=== PATIENT | female | born 1950 | race Caucasian/White ===

== ENCOUNTER → 2017-08-20 | Outpatient (CLI) | payer MEDICARE ==
[~2017-08-20] MED LIST: CALC-6 PO; CHOL10003 PO; HYDR1TAB PO; LEVO5DRO4 OU; LORA1TAB16; LTN005OP2 OU; OMG1KC PO; PRAV20TA3 PO
== END ==
LOC: RAD 09:02
PROVIDERS: ATTEND Family Medicine
DX: Z12.31 Encounter for screening mammogram for malignant neoplasm of breast (principal)
CPT/HCPCS: 77067

== ENCOUNTER → 2017-08-28 | Outpatient (CLI) | payer MEDICARE ==
[2017-08-28 10:10] LABS: BASOPHILS % (AUTO) 1 % (0-10); EOSINOPHILS # (AUTO) 0.2 10^3/uL (0.0-0.3); EOSINOPHILS % (AUTO) 4 % (0-10); LYMPHOCYTES # (AUTO) 1.5 X 10^3 (1.0-4.0); LYMPHOCYTES % (AUTO) 37 % (12-44); MEAN CORPUSCULAR HEMOGLOBIN 29 PG (25-34); MEAN CORPUSCULAR HGB CONC 34 G/DL (32-36); MEAN CORPUSCULAR VOLUME 85 FL (80-99); MEAN PLATELET VOLUME 9.9 FL (7.4-10.4); MONOCYTES # (AUTO) 0.4 X 10^3 (0.0-1.0); MONOCYTES % (AUTO) 9 % (0-12); NEUTROPHILS % (AUTO) 49 % (42-75); PLATELET COUNT 217 10^3/uL (130-400); RED BLOOD COUNT 4.46 10^6/uL (4.35-5.85); RED CELL DISTRIBUTION WIDTH 12.7 % (10.0-14.5); WHITE BLOOD COUNT 4.1 10^3/uL (4.3-11.0)
[2017-08-28 10:30] LABS: ALANINE AMINOTRANSFERASE 26 U/L (0-55); ALBUMIN 4.2 GM/DL (3.2-4.5); ANION GAP 7 MMOL/L (5-14); ASPARTATE AMINO TRANSFERASE 31 U/L (5-34); BILIRUBIN,TOTAL 1.2 MG/DL (0.1-1.0); BLOOD UREA NITROGEN 16 MG/DL (7-18); BUN/CREATININE RATIO 20; CALCIUM 9.6 MG/DL (8.5-10.1); CARBON DIOXIDE 29 MMOL/L (21-32); CHLORIDE 105 MMOL/L (98-107); CHOLESTEROL 205 MG/DL (< 200); CREATININE SERUM 0.82 MG/DL (0.60-1.30); DIRECT LDL 114 MG/DL (1-129); GFR ESTIMATED > 60; GLUCOSE 101 MG/DL (70-105); SODIUM 141 MMOL/L (135-145); TOTAL PROTEIN 7.3 GM/DL (6.4-8.2); TRIGLYCERIDES 141 MG/DL (<150); VLDL CHOLESTEROL 28 MG/DL (5-40)
[2017-08-28 10:51] LABS: THYROID STIMULATING HORMONE 0.88 UIU/ML (0.35-4.94)
[2017-08-29 16:12] LABS: VITAMIN D 25-HYDROXY (TOTAL) 31 ng/mL (30-100)
== END ==
LOC: LAB 09:47
PROVIDERS: ATTEND Family Medicine
DX: E78.5 Hyperlipidemia, unspecified (principal); E55.9 Vitamin D deficiency, unspecified; R53.83 Other fatigue; E53.8 Deficiency of other specified B group vitamins; M81.0 Age-related osteoporosis without current pathological fracture
CPT/HCPCS: 36415; 80053; 80061; 82306; 82607; 84439; 84443; 85025

== ENCOUNTER → 2017-11-20 | Outpatient (CLI) | payer MEDICARE ==
--- NOTE | 2017-11-20 14:37 | Diagnostic Imaging Report ---
INDICATION: Cough. COMPARISON: None. FINDINGS: Two views of the chest are obtained. Heart size is normal. The pulmonary vessels appear unremarkable. There is no pneumothorax, mediastinal widening, or pleural fluid demonstrated. Diaphragms are mildly flattened suggestive of COPD. The lungs are clear. Osseous structures appear unremarkable. IMPRESSION: Findings suggestive of COPD. No acute abnormality is demonstrated. Dictated by: Dictated on workstation # [id number]
== END ==
LOC: RAD 14:08
PROVIDERS: ATTEND Nurse Practitioner Family
DX: R05 Cough (principal); R06.89 Other abnormalities of breathing
CPT/HCPCS: 71046

== ENCOUNTER → 2017-11-25 | Outpatient (CLI) | payer MEDICARE ==
[~2017-11-25] MED LIST changes: +RT-ALBUTEROL SULF 2.5 MG/3 ML PRE-MIX VIAL INH ONE
== END ==
LOC: RAD 15:29
PROVIDERS: ATTEND Nurse Practitioner Family
DX: R05 Cough (principal); R07.89 Other chest pain
CPT/HCPCS: 94060; 94726; 94729

== ENCOUNTER → 2017-12-17 | Outpatient (CLI) | payer MEDICARE ==
[~2017-12-17] MED LIST changes: +CATHETER FLUSH 10 ML SYR IV PRN; +IOHEXOL 350 MG/ML 150 ML (OMNIPAQUE 350) VIAL IV ONE; -RT-ALBUTEROL SULF 2.5 MG/3 ML PRE-MIX VIAL INH ONE
[2017-12-17 11:19] LABS: BASOPHILS % (AUTO) 0 % (0-10); EOSINOPHILS # (AUTO) 0.1 10^3/uL (0.0-0.3); EOSINOPHILS % (AUTO) 1 % (0-10); HEMATOCRIT 43 % (35-52); HEMOGLOBIN 14.7 G/DL (11.5-16.0); LYMPHOCYTES # (AUTO) 1.8 X 10^3 (1.0-4.0); LYMPHOCYTES % (AUTO) 19 % (12-44); MEAN CORPUSCULAR HEMOGLOBIN 29 PG (25-34); MEAN CORPUSCULAR HGB CONC 35 G/DL (32-36); MEAN CORPUSCULAR VOLUME 85 FL (80-99); MEAN PLATELET VOLUME 9.7 FL (7.4-10.4); MONOCYTES # (AUTO) 0.7 X 10^3 (0.0-1.0); MONOCYTES % (AUTO) 7 % (0-12); NEUTROPHILS # (AUTO) 6.8 X 10^3 (1.8-7.8); NEUTROPHILS % (AUTO) 72 % (42-75); PLATELET COUNT 243 10^3/uL (130-400); RED CELL DISTRIBUTION WIDTH 13.1 % (10.0-14.5); WHITE BLOOD COUNT 9.4 10^3/uL (4.3-11.0)
[2017-12-17 11:39] LABS: ALANINE AMINOTRANSFERASE 26 U/L (0-55); ALBUMIN 4.4 GM/DL (3.2-4.5); ALKALINE PHOSPHATASE 81 U/L (40-136); BILIRUBIN,TOTAL 0.8 MG/DL (0.1-1.0); BUN/CREATININE RATIO 9; CALCIUM 9.8 MG/DL (8.5-10.1); CARBON DIOXIDE 28 MMOL/L (21-32); CHLORIDE 102 MMOL/L (98-107); CREATININE SERUM 0.77 MG/DL (0.60-1.30); GFR ESTIMATED > 60; GLUCOSE 111 MG/DL (70-105); SODIUM 139 MMOL/L (135-145)
--- NOTE | 2017-12-17 13:10 | Diagnostic Imaging Report ---
PROCEDURE: CT angiography of the chest with contrast. TECHNIQUE: Multiple contiguous axial images were obtained through the chest after uneventful bolus administration of intravenous contrast. Reconstructed CTA MIP acquisitions were also performed. INDICATION: Cough, wheezing, and shortness of breath. FINDINGS: The ascending aorta measures 3.4 cm. There is no evidence of dissection. There are no filling defects within the pulmonary arteries to suggest embolism. There is minimal dependent atelectasis in the lung bases. There are no discrete pulmonary nodules, masses, or infiltrates. There is no pleural or pericardial fluid. There is no pneumothorax. There is no pathologically enlarged adenopathy in the chest. There is mild thoracic spondylosis. The visualized intra-abdominal structures are unremarkable. IMPRESSION: Unremarkable CTA chest apart from some dependent atelectasis in the lung bases. Specifically, there is no evidence of dissection or pulmonary embolism. Mild thoracic spondylosis. Dictated by: Dictated on workstation # [id number]
== END ==
LOC: RAD 11:05
PROVIDERS: ATTEND Nurse Practitioner Family
DX: J44.9 Chronic obstructive pulmonary disease, unspecified (principal)
CPT/HCPCS: 36415; 71275; 80053; 83880; 85025

== ENCOUNTER 2017-12-24 10:45 | Inpatient (IN) | payer MEDICARE ==
[~2017-12-24] VITALS: Ht 162.6 cm; Wt 63.5 kg
[~2017-12-24 10:45] MED LIST changes: -CATHETER FLUSH 10 ML SYR IV PRN; -IOHEXOL 350 MG/ML 150 ML (OMNIPAQUE 350) VIAL IV ONE
[2017-12-24 11:15] VITALS: BP 162/87
[2017-12-24] MEDS ORDERED: methylPREDNISolone 125 MG (Solu-MEDROL) VIAL IV NR (12:04)
[2017-12-24] MEDS ORDERED: FLUCONAZOLE 200 MG/NACL 100 ML (PRE-MIX) IV NR (12:05)
[2017-12-24] MEDS ORDERED: LORATADINE (CLARITIN) 10 MG TAB PO SCH (12:07)
[2017-12-24] MEDS ORDERED: MONTELUKAST 10 MG (SINGULAIR) TAB PO SCH (12:07)
[2017-12-24] MEDS ORDERED: RT-ALBUTEROL/IPRATROPIUM 3 ML (DUONEB) VIAL IH PRN (12:15)
[2017-12-24] MEDS ORDERED: ALEN70TA47 PO (12:37)
[2017-12-24] MEDS ORDERED: LORA10TA76 PO (12:37)
[2017-12-24] MEDS ORDERED: CHOL20003 PO (12:37)
[2017-12-24] MEDS ORDERED: ALBU18HF2 INH (12:37)
[2017-12-24] MEDS ORDERED: MELA10TA2 PO (12:37)
[2017-12-24] MEDS ORDERED: BUDE10.2 INH (12:37)
[2017-12-24] MEDS ORDERED: CETI10TA17 PO (12:37)
[2017-12-24] MEDS ORDERED: LATA2.5D5 OU (12:37)
[2017-12-24] MEDS ORDERED: FLUT16SP22 NS (12:37)
[2017-12-24] MEDS ORDERED: ASPI-983 PO (12:37)
[2017-12-24] MEDS ORDERED: BENZ-36 PO (12:37)
[2017-12-24] MEDS ORDERED: PRD10T PO (12:37)
[2017-12-24] MEDS ORDERED: MONT10TA24 PO (12:37)
[2017-12-24] MEDS ORDERED: ALBU2.5V4 NEB (12:41)
[2017-12-24] MEDS ORDERED: FLUC100T6 PO (12:41)
[2017-12-24] MEDS: NS IV 1000 ML 1,000 ML IV SCH ×2 (12:44→20:09)
[2017-12-24] MEDS: ENOXAPARIN 40 MG/0.4 ML (LOVENOX) SYR SC SCH (12:45)
[2017-12-24 13:13] LABS: BASOPHILS % (AUTO) 0 % (0-10); EOSINOPHILS # (AUTO) 0.1 10^3/uL (0.0-0.3); EOSINOPHILS % (AUTO) 0 % (0-10); HEMATOCRIT 40 % (35-52); HEMOGLOBIN 13.9 G/DL (11.5-16.0); LYMPHOCYTES # (AUTO) 3.4 X 10^3 (1.0-4.0); LYMPHOCYTES % (AUTO) 18 % (12-44); MEAN CORPUSCULAR HEMOGLOBIN 30 PG (25-34); MEAN CORPUSCULAR HGB CONC 35 G/DL (32-36); MEAN CORPUSCULAR VOLUME 85 FL (80-99); MEAN PLATELET VOLUME 9.4 FL (7.4-10.4); MONOCYTES # (AUTO) 1.6 X 10^3 (0.0-1.0); MONOCYTES % (AUTO) 9 % (0-12); NEUTROPHILS # (AUTO) 13.4 X 10^3 (1.8-7.8); NEUTROPHILS % (AUTO) 72 % (42-75); PLATELET COUNT 281 10^3/uL (130-400); RED BLOOD COUNT 4.65 10^6/uL (4.35-5.85); RED CELL DISTRIBUTION WIDTH 13.7 % (10.0-14.5); WHITE BLOOD COUNT 18.6 10^3/uL (4.3-11.0)
[2017-12-24 13:30] LABS: ALANINE AMINOTRANSFERASE 22 U/L (0-55); ALBUMIN 3.5 GM/DL (3.2-4.5); ALKALINE PHOSPHATASE 64 U/L (40-136); BILIRUBIN,TOTAL 0.6 MG/DL (0.1-1.0); BUN/CREATININE RATIO 16; CALCIUM 9.3 MG/DL (8.5-10.1); CARBON DIOXIDE 25 MMOL/L (21-32); CHLORIDE 100 MMOL/L (98-107); CREATININE SERUM 0.76 MG/DL (0.60-1.30); GFR ESTIMATED > 60; GLUCOSE 120 MG/DL (70-105); POTASSIUM 3.2 MMOL/L (3.6-5.0); SODIUM 136 MMOL/L (135-145); TOTAL PROTEIN 6.3 GM/DL (6.4-8.2)
[2017-12-24 13:39] LABS: BAND NEUTROPHILS 4 %; BASOPHILS % (MANUAL) 0 %; EOSINOPHILS % (MANUAL) 0 %; LYMPHOCYTES % (MANUAL) 18 %; MONOCYTES % (MANUAL) 5 %; NEUTROPHILS % (MANUAL) 73 %; RBC MORPH NORMAL
--- NOTE | 2017-12-24 13:49 | Diagnostic Imaging Report ---
EXAMINATION: PA and lateral chest obtained at 153h. INDICATION: Cough, shortness of breath The heart size is within normal limits and stable when compared to 11/20/2017. In the interval since the prior study a few crowded bronchovascular markings have developed in the left lung base. I am concerned that there is mild pneumonia/atelectasis in this area. The lungs are otherwise clear. There is no sign of pleural effusion. Mediastinum is not widened. The osseous structures are intact. IMPRESSION: 1. The findings do suggest that there is now mild left lower lobe pneumonia/atelectasis. Clinical followup is recommended. 2. There is no acute cardiopulmonary abnormality noted otherwise. Dictated by: Dictated on workstation # [id number]
[2017-12-24] MEDS: RT-ALBUTEROL/IPRATROPIUM 3 ML (DUONEB) VIAL IH SCH ×2 (15:02→23:20)
[2017-12-24 16:00] VITALS: BP 157/98
--- NOTE | 2017-12-24 17:23 | History & Physicial ---
History of Present Illness History of Present Illness Reason for visit/HPI This is a 67 year old female with a 3month history of shortness of air with cough. She has had an extensive workup including CXR, CT scan of chest, PFT, laboratory and has been treated with antibiotics, steroids and inhalers with no improvement in her symptoms. She was sent to Dr. Beltran and he felt she should be admitted for IV steroids and routine breathing treatments for COPD exacerbation. She was also noted to have significant thrush at his office. Date of Admission Dec 24, 2017 at 11:50 am Date Seen by Provider: Dec 24, 2017 Time Seen by Provider: 12:30 I consulted on this patient on 12/24/17 17:18 Attending Physician Kayy English DO Admitting Physician Kayy English DO Consult Allergies and Home Medications Allergies Coded Allergies: No Known Drug Allergies (Verified , 08/08/16) Home Medications Albuterol Sulfate 18 Gm Hfa.aer.ad, 2 PUFF INH Q4H PRN for SHORTNESS OF BREATH, (Reported) Albuterol Sulfate 2.5 Mg/3 Ml Vial.neb, 2.5 MG NEB Q6H PRN for WHEEZING, ( Reported) Alendronate Sodium 70 Mg Tablet, 70 MG PO Th, (Reported) Aspirin 81 Mg Tablet.dr, 81 MG PO DAILY, (Reported) Benzonatate 100 Mg Capsule, 100 MG PO Q8H PRN for COUGH, (Reported) Budesonide/Formoterol Fumarate 10.2 Gm Hfa.aer.ad, 2 PUFF INH BID, (Reported) Calcium Carbonate/Vitamin D3 1 Each Tablet, 1 TAB PO HS, (Reported) Cetirizine HCl 10 Mg Tablet, 10 MG PO DAILY, (Reported) Cholecalciferol (Vitamin D3) 2,000 Unit Capsule, 2,000 UNIT PO BID, (Reported) Fluconazole 100 Mg Tablet, 100 MG PO DAILY for 7 Days, (Reported) 7 DAY SUPPLY FILLED 18 Fluticasone Propionate 16 Gm [place].susp, 1 SPRAY NS 1200, (Reported) Latanoprost 2.5 Ml Drops, 1 DROP OU HS, (Reported) Levobunolol HCl 5 Ml Drops, 1 DROP OU DAILY, (Reported) Loratadine 10 Mg Tablet, 10 MG PO DAILY PRN for ALLERGIES, (Reported) Melatonin 10 Mg Tablet, 10 MG PO HS, (Reported) Montelukast Sodium 10 Mg Tablet, 10 MG PO HS, (Reported) [place] 3 Polyunsat Fatty Acids 1,000 Mg Cap, 1,000 MG PO DAILY, (Reported) Pravastatin Sodium 20 Mg Tablet, 20 MG PO HS, (Reported) Prednisone 10 Mg Tab, PO UD for 12 Days, (Reported) TAKE 6 TABLETS BY MOUTH ON DAY 1&2, 5 TABLET 3&4, 4 TABLET 5&6, 3 TABLET 7&8 , 2 TABLET 9&10, 1 TABLET 11&12 12 DAY THERAPY FILLED 12-17-17 Past Bvboxye-Ubhvke-Qyqtpt Hx Patient Social History Alcohol Use: Denies Use Recreational Drug Use: No Smoking Status: Never a Smoker Physical Abuse Screen: No Sexual Abuse: No Recent Foreign Travel: No Contact w/other who traveled: No Recent Infectious Disease Expo: No Immunizations Up To Date Date of Pneumonia Vaccine: Aug 23, 2017 Date of Influenza Vaccine: Aug 23, 2017 Seasonal Allergies Seasonal Allergies: Yes Surgeries Yes (gb surgery ) Respiratory No Cardiovascular Yes Neurological No Genitourinary No Gastrointestinal Yes Gastroesophageal Reflux Musculoskeletal Yes Fibromyalgia Endocrine History of Endocrine Disorders: No HEENT History of HEENT Disorders: No Cancer No Psychosocial History of Psychiatric Problem: No Integumentary History of Skin or Integumenta: No Blood Transfusions History of Blood Disorders: No Constitutional: weakness EENTM: mouth pain, nose congestion Respiratory: cough, dyspnea on exertion, short of breath Cardiovascular: No no symptoms reported, No see HPI, No chest pain, No edema, No Hx of Intervention, No palpitations, No syncope, No vascular heart diseas, No other Gastrointestinal: No RUQ, No LUQ, No RLQ, No LLQ, No no symptoms reported, No see HPI, No abdominal pain, No constipation, No diarrhea, No dysphagia, No hematemesis, No heartburn, No jaundice, No loss of appetite, No melena, No nausea, No vomiting, No other Genitourinary: No no symptoms reported, No see HPI, No decreased output, No discharge, No dysuria, No frequency, No hematuria, No hesitancy, No incontinence , No nocturia, No pain, No other Musculoskeletal: No no symptoms reported, No see HPI, No back pain, No gout, No joint pain, No joint swelling, No muscle pain, No muscle stiffness, No muscle cramps, No muscle twitching, No muscle weakness, No neck pain, No other Skin: No no symptoms reported, No see HPI, No change in color, No change in hair/nails, No dryness, No hx of skin cancer, No lesions, No lumps, No pruritus , No rash, No other Psychiatric/Neurological: Weakness Physical Exam Vital Signs Vital Signs - First Documented 12/24/17 11:15 Temp 97.0 Pulse 79 Resp 16 B/P (MAP) 162/87 (112) Pulse Ox 94 O2 Delivery Room Air Capillary Refill : General Appearance: No Apparent Distress, Mild Distress (due to fatigue/cough) HEENT: Other (thrush) Neck: Supple Respiratory: Lungs Clear, Decreased Breath Sounds Cardiovascular: Regular Rate, Rhythm Gastrointestinal: Normal Bowel Sounds, Non Tender, Soft Rectal: Deferred Back: No CVA Tenderness Extremity: Non Tender, No Calf Tenderness, No Pedal Edema Neurologic/Psychiatric: Alert, Oriented x3 Skin: Normal Color, Warm/Dry Comments Laboratory Tests 12/24/17 13:05: White Blood Count 18.6H, Red Blood Count 4.65, Hemoglobin 13.9, Hematocrit 40, Mean Corpuscular Volume 85, Mean Corpuscular Hemoglobin 30, Mean Corpuscular Hemoglobin Concent 35, Red Cell Distribution Width 13.7, Platelet Count 281, Mean Platelet Volume 9.4, Neutrophils (%) (Auto) 72, Lymphocytes (%) (Auto) 18, Monocytes (%) (Auto) 9, Eosinophils (%) (Auto) 0, Basophils (%) (Auto) 0, Neutrophils # (Auto) 13.4H, Lymphocytes # (Auto) 3.4, Monocytes # (Auto) 1.6H, Eosinophils # (Auto) 0.1, Basophils # (Auto) 0.0, Neutrophils % (Manual) 73, Lymphocytes % (Manual) 18, Monocytes % (Manual) 5, Eosinophils % (Manual) 0, Basophils % (Manual) 0, Band Neutrophils 4, Blood Morphology Comment NORMAL, Sodium Level 136, Potassium Level 3.2L, Chloride Level 100, Carbon Dioxide Level 25, Anion Gap 11, Blood Urea Nitrogen 12, Creatinine 0.76, Estimat Glomerular Filtration Rate > 60, BUN/Creatinine Ratio 16, Glucose Level 120H, Calcium Level 9.3, Total Bilirubin 0.6, Aspartate Amino Transf (AST/SGOT) 18, Alanine Aminotransferase (ALT/SGPT) 22, Alkaline Phosphatase 64, Total Protein 6.3L, Albumin 3.5 Assessment/Plan Assessment and Plan 1. COPD with acute exacerbation--admit for IV steroids and nebulizer treatments , pulmonology consulted 2. Thrush--cover with IV diflucan and oral nystatin 3. Allergic Rhinitis--resume zyrtec, singulair Problems: Clinical Quality Measures DVT/VTE Risk/Contraindication: Risk Factor Score Per Nursin RFS Level Per Nursing on Admit: 4+=Very High KAYY ENGLISH DO Dec 24, 2017 5:23 pm
[2017-12-24] MEDS: methylPREDNISolone 40 MG/ML (Solu-MEDROL) VIAL IV SCH ×2 (18:03→23:21)
[2017-12-24] MEDS: NYSTATIN ORAL SUSP 5 ML UDC PO SCH ×2 (18:03→23:21)
[2017-12-24 19:43] VITALS: BP 158/87
[2017-12-24] MEDS: FAMOTIDINE 20 MG (PEPCID) TABLET PO SCH (20:10)
[2017-12-24] MEDS: LATANOPROST 0.005% (XALATAN) OPHTH SOLN 2.5 ML OU SCH (20:10)
[2017-12-24] MEDS: SIMvastatin 10 MG (ZOCOR) TAB PO SCH (20:10)
[2017-12-24] MEDS: MONTELUKAST 10 MG (SINGULAIR) TAB PO SCH (20:10)
[2017-12-24] MEDS: MELATONIN 3 MG TABLET PO SCH (23:15)
[2017-12-25] VITALS: BP 139/90
[2017-12-25] MEDS: RT-ALBUTEROL/IPRATROPIUM 3 ML (DUONEB) VIAL IH SCH ×6 (02:18→23:17)
[2017-12-25] MEDS: NS IV 1000 ML 1,000 ML IV SCH ×4 (02:52→21:44)
[2017-12-25 03:31] VITALS: BP 162/94
[2017-12-25] MEDS: methylPREDNISolone 40 MG/ML (Solu-MEDROL) VIAL IV SCH ×4 (05:41→23:29)
[2017-12-25] MEDS: NYSTATIN ORAL SUSP 5 ML UDC PO SCH ×4 (05:41→23:29)
[2017-12-25 08:00] VITALS: BP 184/97
[2017-12-25] MEDS: ASPIRIN E.C. 81 MG (ECOTRIN) TAB PO SCH (08:27)
[2017-12-25] MEDS: LORATADINE (CLARITIN) 10 MG TAB PO SCH (08:27)
[2017-12-25] MEDS: FAMOTIDINE 20 MG (PEPCID) TABLET PO SCH (08:27)
--- OUTSIDE RECORDS SUMMARY | 2017-12-25 08:57 | XMS REPORT | Clinical Summary ---
Author Author User, [employer] Organization [facility] [place] Address Unknown Phone Unavailable Allergies, Adverse Reactions, Alerts Allergy Name Reaction Description Start Date Severity Status Provider No Known Allergies Kiersten Main Conditions or Problems Problem Name Problem Code Onset Date Status Entry Date Provider Comment Standard Description Annotate SCREENING FOR OSTEOPOROSIS V82.81 Resolved Eileen Parra Screening for osteoporosis HEALTH SCREENING V70.0 Resolved Eileen Parra Routine general medical examination at a health care facility MENOPAUSAL SYNDROME 627.0 Active Eileen Parra Premenopausal menorrhagia FATIGUE 780.79 Active Eileen Parra Other malaise and fatigue HYPERTRIGLYCERIDEMIA 272.1 Active Eileen Parra Pure hyperglyceridemia OSTEOPENIA 733.90 Resolved Eileen Parra Disorder of bone and cartilage, unspecified OSTEOPOROSIS NEC 733.09 Active Eileen Parra Other osteoporosis HEALTH SCREENING V70.0 Resolved Eileen Parra Routine general medical examination at a health care facility ABNORMAL MAMMOGRAM 793.80 Resolved Eileen Parra Abnormal mammogram, unspecified Medication List Medication Instructions Start Date Stop Date Generic Name NDC Status Provider Patient Instruction CVS MELATONIN 5 MG TABS 1 PO QHS MELATONIN 17952736239 Active Eileen Parra LEVOBUNOLOL HCL 0.5 % SOLN 1 drop each eye daily LEVOBUNOLOL HCL 01556077602 Active Eileen Parra VITAMIN D 1000 UNIT TABS 2 PO Daily CHOLECALCIFEROL 39859322186 Active Eileen Catherine Fidel FOSAMAX 70 MG TABS 1 PO Qwk ALENDRONATE SODIUM 07677345796 Active Shannan Fontana FISH OIL 1000 MG CAPS 1 PO daily OMEGA-3 FATTY ACIDS 01400844317 Active Eileenanuja Parra CALTRATE 600 PLUS-VIT D 600-200 MG-IU TABS 1 PO BID CALCIUM- VITAMIN D Active Eileenanuja Parra PREMARIN 0.3 MG TABS 1 PO daily ESTROGENS CONJUGATED 18931091928 No Longer Active Eileenanuja Parra CLIMARA 0.05 MG/24HR PTWK apply 1 patch one time a week (ON HOLD) ESTRADIOL 07623374702 No Longer Active Eileenanuja Parra XALATAN 0.005 % SOLN 1 gtt in OU at HS LATANOPROST 89069622457 Active Eileenanuja Parra Vital Signs Date Name Value Unit Range Description blood pressure, diastolic - 8462-4 80 mm[Hg] BP paula blood pressure, systolic - 8480-6 130 mm[Hg] BP sys pulse rate E&M - 8867-4 68 /min Heart rate respiratory rate E&M - 9279-1 14 /min Resp rate temperature E&M 97.6 [degF] Body temperature weight E&M - 3141-9 155 [lb_av] Weight Measured Diagnostic Results Date Name Value Unit Range Description Clinical Lists Update: CBC,CMP,FLP,TSH - Chemistry Estimated Glomerular Filtration Rate (calc) >60 mL/min/1.73m2 glucose, plasma fasting 104 mg/dL albumin, serum 4.1 g/dL alkaline phosphatase, serum 60 U/L urea nitrogen, blood 14 mg/dL calcium, serum 9.5 mg/dL chloride, serum 107 mmol/L cholesterol, serum 238 mg/dL very low density lipoproteins 69 mg/dL sodium, serum 142 mmol/L triglyceride, serum, fasting 346 mg/dL bilirubin, serum, total 0.6 mg/dL alanine aminotransferase (SGPT), serum 26 U/L aspartate aminotransferase (SGOT), serum 26 U/L protein, total, serum 7.2 g/dL potassium, serum 3.9 mmol/L LDL cholesterol, serum 103 mg/dL thyroid stimulating hormone, serum 1.58 u[iU]/mL HDL cholesterol, serum 40 mg/dL creatinine, serum 0.82 mg/dL carbon dioxide, venous blood 28 mmol/L Clinical Lists Update: CBC,CMP,FLP,TSH - Hematology platelet count 238 10*3/mm3 erythrocyte (RBC) count 4.62 10*6/mm3 leukocyte count, blood 5.6 10*3/mm3 mean corpuscular volume, RBC 85 fL red blood cell distribution width 12.7 % hemoglobin, blood 13.4 g/dL hematocrit, blood 39 % Encounters Code Encounter Date Provider Facility CPT-10645 Ofc Vst, Est Level IV 11:16:39 CDT Eileen Parra DO, FACP CPT-23366 Ofc Vst, New Level IV 10:22:05 CDT Eileen Parra DO, FACP CPT-54592 Ofc Vst, Est Level III 16:02:27 CDT Eileen Parra [facility] [place] CPT-59023 Ofc Vst, New Level III 16:50:39 CORONER/MEDICAL EXAMINER Eileen [facility] [place] Procedures Code Procedure Name Date Entry Date Standard Description CPT-95459 Preventive, Est, (40-64) 18:15:22 CDT CPT-01656 Preventive, Est, (40-64) 15:20:17 CDT CPT-77207 Preventive, Est, (40-64) 12:57:11 CDT CPT-14288 Preventive, Est, (40-64) 14:58:51 CDT
--- OUTSIDE RECORDS SUMMARY | 2017-12-25 08:57 | XMS REPORT | Continuity of Care Document ---
Author Author [facility] Organization [facility] Address Unknown Phone Unavailable Allergies Active Description Code Type Severity Reaction Onset Reported/Identified Relationship to Patient Clinical Status Yes No Known Drug Allergies [id number] Drug Allergy Mild N/A 08/08/2016 Medications There is no data. Problems Date Dx Coded Attending Type Code Diagnosis Diagnosed By 11/02/2014 MITCHELL DO, ARACELIS Ot 793.80 06/01/2015 Ot 793.89 06/01/2015 Ot V76.12 06/01/2015 Ot 272.1 06/01/2015 Ot 272.1 06/01/2015 Ot 627.0 06/01/2015 Ot 733.00 06/01/2015 Ot 780.79 06/01/2015 Ot V82.81 06/01/2015 Ot 268.9 06/01/2015 Ot 272.1 06/01/2015 Ot 733.00 06/01/2015 Ot 733.90 06/01/2015 Ot 780.79 06/01/2015 Ot V82.81 06/01/2015 Ot V76.12 06/01/2015 MITCHELL DO, ARACELIS Ot 272.1 06/01/2015 MITCHELL DO, ARACELIS Ot 627.0 06/01/2015 MITCHELL DO, ARACELIS Ot 733.09 06/01/2015 MITCHELL DO, ARACELIS Ot 733.90 06/01/2015 MITCHELL DO, ARACELIS Ot 780.79 06/01/2015 MITCHELL DO, ARACELIS Ot V70.0 06/01/2015 MITCHELL DO, ARACELIS Ot V82.81 06/01/2015 MITCHELL DO, ARACELIS Ot V76.12 06/01/2015 MITCHELL DO, ARACELIS Ot 272.1 06/01/2015 MITCHELL DO, ARACELIS Ot 627.0 06/01/2015 MITCHELL DO, ARACELIS Ot 733.09 06/01/2015 MITCHELL DO, ARACELIS Ot 780.79 06/01/2015 MITCHELL DO, ARACELIS Ot V58.69 06/01/2015 MITCHELL DO, ARACELIS Ot V58.83 06/01/2015 MITCHELL DO, ARACELIS Ot V70.0 06/01/2015 MITCHELL DO, ARACELIS Ot V76.12 06/01/2015 MITCHELL DO, ARACELIS Ot 793.80 06/15/2015 MITCHELL DO, ARACELIS Ot V76.12 06/16/2015 MITCHELL DO, ARACELIS Ot 272.1 06/16/2015 MITCHELL DO, ARACELIS Ot 627.0 06/16/2015 MITCHELL DO, ARACELIS Ot 733.09 06/16/2015 MITCHELL DO, ARACELIS Ot 780.79 06/16/2015 MITCHELL DO, ARACELIS Ot V58.69 06/16/2015 MITCHELL DO, ARACELIS Ot V70.0 07/01/2015 MITCHELL DO, ARACELIS Ot V76.12 2016 FABIAN MAE DO S Ot 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 2016 CATHY MAE DOQUELINE S Ot M85.80 OTH DISRD OF BONE DENSITY AND STRUCTURE, 2016 BEA MAE DOLINE S Ot R53.83 OTHER FATIGUE 2016 BEA MAE DOLINE S Ot Z12.31 ENCNTR SCREEN MAMMOGRAM FOR MALIGNANT NE 07/27/2016 BEA MAE DOLINE S Ot M85.80 OTH DISRD OF BONE DENSITY AND STRUCTURE, 07/27/2016 BEA MAE DOLINE S Ot 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 07/30/2016 KATHRYN ANGUIANO MD Ot Z01.818 ENCOUNTER FOR OTHER PREPROCEDURAL EXAMIN 07/30/2016 KATHRYN ANGUIANO MD Ot Z12.11 ENCOUNTER FOR SCREENING FOR MALIGNANT NE 07/31/2016 KATHRYN ANGUIANO MD Ot Z01.818 ENCOUNTER FOR OTHER PREPROCEDURAL EXAMIN 07/31/2016 KATHRYN ANGUIANO MD Ot Z12.11 ENCOUNTER FOR SCREENING FOR MALIGNANT NE 08/07/2016 BEA MAE DOLINE S Ot M85.80 OTH DISRD OF BONE DENSITY AND STRUCTURE, 08/07/2016 ORENDER DO, FABIAN S Ot Z79.899 OTHER CORRECTION (CURRENT) DRUG THERAPY 08/08/2016 ORENDER DO, FABIAN S Ot 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 08/08/2016 ORENDER DO, FABIAN S Ot M85.80 OTH DISRD OF BONE DENSITY AND STRUCTURE, 08/08/2016 ORENDER DO, FABIAN S Ot R53.83 OTHER FATIGUE 08/08/2016 ORENDER DO, FABIAN S Ot Z12.31 ENCNTR SCREEN MAMMOGRAM FOR MALIGNANT NE 08/08/2016 ORENDER DO, FABIAN S Ot M85.80 OTH DISRD OF BONE DENSITY AND STRUCTURE, 08/08/2016 ORENDER DO, FABIAN S Ot Z79.899 OTHER CORRECTION (CURRENT) DRUG THERAPY 08/08/2016 KATHRYN ANGUIANO MD Ot K64.0 FIRST DEGREE HEMORRHOIDS 08/08/2016 KATHRYN ANGUIANO MD Ot Z12.11 ENCOUNTER FOR SCREENING FOR MALIGNANT NE 08/24/2016 ORENDER DO, FABIAN S Ot 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 08/24/2016 ORENDER DO, FABIAN S Ot M85.80 OTH DISRD OF BONE DENSITY AND STRUCTURE, 08/24/2016 ORENDER DO, FABIAN S Ot R53.83 OTHER FATIGUE 08/24/2016 ORENDER DO, FABIAN S Ot Z12.31 ENCNTR SCREEN MAMMOGRAM FOR MALIGNANT NE 08/27/2016 KATHRYN ANGUIANO MD Ot K64.0 FIRST DEGREE HEMORRHOIDS 08/27/2016 KATHRYN ANGUIANO MD Ot Z12.11 ENCOUNTER FOR SCREENING FOR MALIGNANT NE 08/16/2017 ORENDER DO, FABIAN S Ot Z12.31 ENCNTR SCREEN MAMMOGRAM FOR MALIGNANT NE 08/20/2017 ORENDER DO, FABIAN S Ot 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 08/20/2017 ORENDER DO, FABIAN S Ot M85.80 OTH DISRD OF BONE DENSITY AND STRUCTURE, 08/20/2017 ORENDER DO, FABIAN S Ot R53.83 OTHER FATIGUE 08/20/2017 ORENDER DO, FABIAN S Ot Z12.31 ENCNTR SCREEN MAMMOGRAM FOR MALIGNANT NE 08/20/2017 ARMANDNDMARA OLVERA, FABIAN Kathie Ot M85.80 OTH DISRD OF BONE DENSITY AND STRUCTURE, 08/20/2017 ARMANDNDFABIAN TERRY DO S Ot 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 08/20/2017 BEA MAE DOLINE S Ot Z12.31 ENCNTR SCREEN MAMMOGRAM FOR MALIGNANT NE 08/21/2017 ARMANDNDER , FABIAN S Ot Z12.31 ENCNTR SCREEN MAMMOGRAM FOR MALIGNANT NE 08/26/2017 ARMANDNDER , FABIAN S Ot Z12.31 ENCNTR SCREEN MAMMOGRAM FOR MALIGNANT NE 09/12/2017 ARMANDNDER , FABIAN S Ot Z12.31 ENCNTR SCREEN MAMMOGRAM FOR MALIGNANT NE 09/13/2017 ARMANDNDMARA OLVERA, FABIAN S Ot 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 09/13/2017 ARMANDNDER , FABIAN S Ot E55.9 VITAMIN D DEFICIENCY, UNSPECIFIED 09/13/2017 ARMANDNDER , FABIAN S Ot E78.5 HYPERLIPIDEMIA, UNSPECIFIED 09/13/2017 ARMANDNDER , FABIAN S Ot M81.0 AGE-RELATED OSTEOPOROSIS W/O CURRENT PAT 09/13/2017 ARMANDNDER , FABIAN S Ot R53.83 OTHER FATIGUE 09/26/2017 ARMANDNDER , FABIAN S Ot 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 09/26/2017 ARMANDNDER , FABIAN S Ot E55.9 VITAMIN D DEFICIENCY, UNSPECIFIED 09/26/2017 ARMANDNDER , FABIAN S Ot E78.5 HYPERLIPIDEMIA, UNSPECIFIED 09/26/2017 ARMANDNDER , FABIAN S Ot M81.0 AGE-RELATED OSTEOPOROSIS W/O CURRENT PAT 09/26/2017 ARMANDNDER , FABIAN S Ot R53.83 OTHER FATIGUE 10/04/2017 ARMANDNDER , FABIAN S Ot 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 10/04/2017 ARMANDNDER , FABIAN S Ot E55.9 VITAMIN D DEFICIENCY, UNSPECIFIED 10/04/2017 ARMANDNDER , FABIAN S Ot E78.5 HYPERLIPIDEMIA, UNSPECIFIED 10/04/2017 FABIAN MAE DO Ot M81.0 AGE-RELATED OSTEOPOROSIS W/O CURRENT PAT 10/04/2017 FABIAN MAE DO Ot R53.83 OTHER FATIGUE 10/09/2017 FABIAN MAE DO Ot Z12.31 ENCNTR SCREEN MAMMOGRAM FOR MALIGNANT NE 10/16/2017 FABIAN MAE DO Ot Z12.31 ENCNTR SCREEN MAMMOGRAM FOR MALIGNANT NE 12/16/2017 FARHATSUNSHINE R LATH HAND Ot R05 COUGH 12/16/2017 FARHAT, SUNSHINE R LATH HAND Ot R07.89 OTHER CHEST PAIN 12/16/2017 FARHAT, SUNSHINE R LATH HAND Ot R05 COUGH 12/16/2017 FARHAT, SUNSHINE R LATH HAND Ot R06.89 OTHER ABNORMALITIES OF BREATHING 12/17/2017 LARS WISDOM LATH HAND Ot J44.9 CHRONIC OBSTRUCTIVE PULMONARY DISEASE, U Procedures There is no data. Results Test Result Range Complete blood count (CBC) with automated white blood cell (WBC) differential - 08/28/17 10:05 Blood leukocytes automated count (number/volume) 4.1 10*3/uL 4.3-11.0 Blood erythrocytes automated count (number/volume) 4.46 10*6/uL 4.35-5.85 Venous blood hemoglobin measurement (mass/volume) 13.0 g/dL 11.5-16.0 Blood hematocrit (volume fraction) 38 % 35-52 Automated erythrocyte mean corpuscular volume 85 [foz_us] 80-99 Automated erythrocyte mean corpuscular hemoglobin (mass per erythrocyte) 29 pg 25-34 Automated erythrocyte mean corpuscular hemoglobin concentration measurement ( mass/volume) 34 g/dL 32-36 Automated erythrocyte distribution width ratio 12.7 % 10.0-14.5 Automated blood platelet count (count/volume) 217 10*3/uL 130-400 Automated blood platelet mean volume measurement 9.9 [foz_us] 7.4-10.4 Automated blood neutrophils/100 leukocytes 49 % 42-75 Automated blood lymphocytes/100 leukocytes 37 % 12-44 Blood monocytes/100 leukocytes 9 % 0-12 Automated blood eosinophils/100 leukocytes 4 % 0-10 Automated blood basophils/100 leukocytes 1 % 0-10 Blood neutrophils automated count (number/volume) 2.0 10*3 1.8-7.8 Blood lymphocytes automated count (number/volume) 1.5 10*3 1.0-4.0 Blood monocytes automated count (number/volume) 0.4 10*3 0.0-1.0 Automated eosinophil count 0.2 10*3/uL 0.0-0.3 Automated blood basophil count (count/volume) 0.0 10*3/uL 0.0-0.1 Comprehensive metabolic panel - 08/28/17 10:05 Serum or plasma sodium measurement (moles/volume) 141 mmol/L 135-145 Serum or plasma potassium measurement (moles/volume) 4.0 mmol/L 3.6-5.0 Serum or plasma chloride measurement (moles/volume) 105 mmol/L 98-107 Carbon dioxide 29 mmol/L 21-32 Serum or plasma anion gap determination (moles/volume) 7 mmol/L 5-14 Serum or plasma urea nitrogen measurement (mass/volume) 16 mg/dL 7-18 Serum or plasma creatinine measurement (mass/volume) 0.82 mg/dL 0.60-1.30 Serum or plasma urea nitrogen/creatinine mass ratio 20 NRG Serum or plasma creatinine measurement with calculation of estimated glomerular filtration rate > NRG Serum or plasma glucose measurement (mass/volume) 101 mg/dL 70-105 Serum or plasma calcium measurement (mass/volume) 9.6 mg/dL 8.5-10.1 Serum or plasma total bilirubin measurement (mass/volume) 1.2 mg/dL 0.1-1.0 Serum or plasma alkaline phosphatase measurement (enzymatic activity/volume) 69 U/L 40-136 Serum or plasma aspartate aminotransferase measurement (enzymatic activity/ volume) 31 U/L 5-34 Serum or plasma alanine aminotransferase measurement (enzymatic activity/volume ) 26 U/L 0-55 Serum or plasma protein measurement (mass/volume) 7.3 g/dL 6.4-8.2 Serum or plasma albumin measurement (mass/volume) 4.2 g/dL 3.2-4.5 Lipid 1996 panel - 08/28/17 10:05 Serum or plasma triglyceride measurement (mass/volume) 141 mg/dL <150 Serum or plasma cholesterol measurement (mass/volume) 205 mg/dL < 200 Serum or plasma cholesterol in HDL measurement (mass/volume) 47 mg/ dL 40-60 Cholesterol in LDL [mass/volume] in serum or plasma by direct assay 114 mg/dL 1-129 Serum or plasma cholesterol in VLDL measurement (mass/volume) 28 mg/ dL 5-40 THYROID STIMULATING HORMONE - 08/28/17 10:05 THYROID STIMULATING HORMONE 0.88 u[iU]/mL 0.35-4.94 Serum or plasma thyroxine (T4) free measurement (mass/volume) - 08/28/17 10:05 Serum or plasma thyroxine (T4) free measurement (mass/volume) 0.97 ng/dL 0.70-1.48 Cyanocobalamin measurement - 08/28/17 10:05 Vitamin B12 1683 pg/mL 200-1000 25-hydroxyvitamin D measurement - 08/28/17 10:05 25-hydroxy vitamin D measurement 31 % 30-100 Complete blood count (CBC) with automated white blood cell (WBC) differential - 12/17/17 11:16 Blood leukocytes automated count (number/volume) 9.4 10*3/uL 4.3-11.0 Blood erythrocytes automated count (number/volume) 5.00 10*6/uL 4.35-5.85 Venous blood hemoglobin measurement (mass/volume) 14.7 g/dL 11.5-16.0 Blood hematocrit (volume fraction) 43 % 35-52 Automated erythrocyte mean corpuscular volume 85 [foz_us] 80-99 Automated erythrocyte mean corpuscular hemoglobin (mass per erythrocyte) 29 pg 25-34 Automated erythrocyte mean corpuscular hemoglobin concentration measurement ( mass/volume) 35 g/dL 32-36 Automated erythrocyte distribution width ratio 13.1 % 10.0-14.5 Automated blood platelet count (count/volume) 243 10*3/uL 130-400 Automated blood platelet mean volume measurement 9.7 [foz_us] 7.4-10.4 Automated blood neutrophils/100 leukocytes 72 % 42-75 Automated blood lymphocytes/100 leukocytes 19 % 12-44 Blood monocytes/100 leukocytes 7 % 0-12 Automated blood eosinophils/100 leukocytes 1 % 0-10 Automated blood basophils/100 leukocytes 0 % 0-10 Blood neutrophils automated count (number/volume) 6.8 10*3 1.8-7.8 Blood lymphocytes automated count (number/volume) 1.8 10*3 1.0-4.0 Blood monocytes automated count (number/volume) 0.7 10*3 0.0-1.0 Automated eosinophil count 0.1 10*3/uL 0.0-0.3 Automated blood basophil count (count/volume) 0.0 10*3/uL 0.0-0.1 Comprehensive metabolic panel - 12/17/17 11:16 Serum or plasma sodium measurement (moles/volume) 139 mmol/L 135-145 Serum or plasma potassium measurement (moles/volume) 4.0 mmol/L 3.6-5.0 Serum or plasma chloride measurement (moles/volume) 102 mmol/L 98-107 Carbon dioxide 28 mmol/L 21-32 Serum or plasma anion gap determination (moles/volume) 9 mmol/L 5-14 Serum or plasma urea nitrogen measurement (mass/volume) 7 mg/dL 7-18 Serum or plasma creatinine measurement (mass/volume) 0.77 mg/dL 0.60-1.30 Serum or plasma urea nitrogen/creatinine mass ratio 9 NRG Serum or plasma creatinine measurement with calculation of estimated glomerular filtration rate > NRG Serum or plasma glucose measurement (mass/volume) 111 mg/dL 70-105 Serum or plasma calcium measurement (mass/volume) 9.8 mg/dL 8.5-10.1 Serum or plasma total bilirubin measurement (mass/volume) 0.8 mg/dL 0.1-1.0 Serum or plasma alkaline phosphatase measurement (enzymatic activity/volume) 81 U/L 40-136 Serum or plasma aspartate aminotransferase measurement (enzymatic activity/ volume) 26 U/L 5-34 Serum or plasma alanine aminotransferase measurement (enzymatic activity/volume ) 26 U/L 0-55 Serum or plasma protein measurement (mass/volume) 8.0 g/dL 6.4-8.2 Serum or plasma albumin measurement (mass/volume) 4.4 g/dL 3.2-4.5 Serum or plasma lithium measurement (moles/volume) - 12/17/17 11:16 BNP level 26.6 pg/mL <100.0 Complete blood count (CBC) with automated white blood cell (WBC) differential - 12/24/17 13:05 Blood leukocytes automated count (number/volume) 18.6 10*3/uL 4.3-11.0 Blood erythrocytes automated count (number/volume) 4.65 10*6/uL 4.35-5.85 Venous blood hemoglobin measurement (mass/volume) 13.9 g/dL 11.5-16.0 Blood hematocrit (volume fraction) 40 % 35-52 Automated erythrocyte mean corpuscular volume 85 [foz_us] 80-99 Automated erythrocyte mean corpuscular hemoglobin (mass per erythrocyte) 30 pg 25-34 Automated erythrocyte mean corpuscular hemoglobin concentration measurement ( mass/volume) 35 g/dL 32-36 Automated erythrocyte distribution width ratio 13.7 % 10.0-14.5 Automated blood platelet count (count/volume) 281 10*3/uL 130-400 Automated blood platelet mean volume measurement 9.4 [foz_us] 7.4-10.4 Automated blood neutrophils/100 leukocytes 72 % 42-75 Automated blood lymphocytes/100 leukocytes 18 % 12-44 Blood monocytes/100 leukocytes 9 % 0-12 Automated blood eosinophils/100 leukocytes 0 % 0-10 Automated blood basophils/100 leukocytes 0 % 0-10 Blood neutrophils automated count (number/volume) 13.4 10*3 1.8-7.8 Blood lymphocytes automated count (number/volume) 3.4 10*3 1.0-4.0 Blood monocytes automated count (number/volume) 1.6 10*3 0.0-1.0 Automated eosinophil count 0.1 10*3/uL 0.0-0.3 Automated blood basophil count (count/volume) 0.0 10*3/uL 0.0-0.1 Comprehensive metabolic panel - 12/24/17 13:05 Serum or plasma sodium measurement (moles/volume) 136 mmol/L 135-145 Serum or plasma potassium measurement (moles/volume) 3.2 mmol/L 3.6-5.0 Serum or plasma chloride measurement (moles/volume) 100 mmol/L 98-107 Carbon dioxide 25 mmol/L 21-32 Serum or plasma anion gap determination (moles/volume) 11 mmol/L 5-14 Serum or plasma urea nitrogen measurement (mass/volume) 12 mg/dL 7-18 Serum or plasma creatinine measurement (mass/volume) 0.76 mg/dL 0.60-1.30 Serum or plasma urea nitrogen/creatinine mass ratio 16 NRG Serum or plasma creatinine measurement with calculation of estimated glomerular filtration rate > NRG Serum or plasma glucose measurement (mass/volume) 120 mg/dL 70-105 Serum or plasma calcium measurement (mass/volume) 9.3 mg/dL 8.5-10.1 Serum or plasma total bilirubin measurement (mass/volume) 0.6 mg/dL 0.1-1.0 Serum or plasma alkaline phosphatase measurement (enzymatic activity/volume) 64 U/L 40-136 Serum or plasma aspartate aminotransferase measurement (enzymatic activity/ volume) 18 U/L 5-34 Serum or plasma alanine aminotransferase measurement (enzymatic activity/volume ) 22 U/L 0-55 Serum or plasma protein measurement (mass/volume) 6.3 g/dL 6.4-8.2 Serum or plasma albumin measurement (mass/volume) 3.5 g/dL 3.2-4.5 Blood manual differential performed detection - 12/24/17 13:05 Blood monocytes/100 leukocytes 5 % NRG Manual blood segmented neutrophils/100 leukocytes 73 % NRG Blood band neutrophils/100 leukocytes 4 % NRG Manual blood lymphocytes/100 leukocytes 18 % NRG Manual eosinophils/100 leukocytes in nose 0 % NRG Manual blood basophils/100 leukocytes 0 % NRG Blood erythrocyte morphology finding identification NORMAL NRG Encounters ACCT No. Visit Date/Time Discharge Status Pt. Type Provider Facility Loc./Unit Complaint [id number] 12/17/2017 11:05:00 12/17/2017 23:59:59 CLS Outpatient LARS WISDOM LATH HAND [facility] RAD COPD [id number] 11/25/2017 15:29:00 11/25/2017 23:59:59 CLS Outpatient SUNSHINE DOUGHERTY LATH HAND [facility] RAD COUGH,CHEST TIGHTNESS [id number] 11/20/2017 14:08:00 11/20/2017 23:59:59 CLS Outpatient SUNSHINE DOUGHERTY LATH HAND [facility] RAD COUGH, CHEST TIGHTNESS X 2MONTHS [id number] 08/28/2017 09:47:00 08/28/2017 23:59:59 CLS Outpatient FABIAN MAE DO [facility] LAB HYPERLIPIDEMIA, GATIGUE,HYPO VIT D, OSTEO, B12 DEF [id number] 08/20/2017 09:02:00 08/20/2017 23:59:59 CLS Outpatient FABIAN MAE DO [facility] RAD SCREENING [id number] 08/08/2016 08:37:00 08/08/2016 11:30:00 DIS Outpatient KATHRYN ANGUIANO MD [facility] SDC SCREENING [id number] 07/30/2016 06:06:00 07/30/2016 15:52:00 DIS Outpatient KATHRYN ANGUIANO MD [facility] PREOP SCREENING [id number] 07/26/2016 10:48:00 07/26/2016 23:59:59 CLS Outpatient ORENDER DO FABIAN S [facility] RAD OSTEOPENIA [id number] 07/24/2016 09:56:00 07/24/2016 23:59:59 CLS Outpatient ORENDER DO FABIAN S [facility] RAD SCREENING,FATIGUE, B12 DEF,OSTEOPENIA,MCR PHYSICAL [id number] 06/13/2015 10:45:00 06/13/2015 23:59:59 CLS Outpatient MITCHELL DO, ARACELIS [facility] RAD [id number] 06/01/2015 09:19:00 06/01/2015 23:59:59 CLS Outpatient MITCHELL DO, ARACELIS [facility] LAB [id number] 08/02/2014 08:28:00 08/02/2014 23:59:59 CLS Outpatient MITCHELL DO, ARACELIS [facility] RAD [id number] 06/10/2014 09:16:00 06/10/2014 23:59:59 CLS Outpatient MITCHELL DO, ARACELIS [facility] RAD [id number] 05/31/2014 10:25:00 05/31/2014 23:59:59 CLS Outpatient MITCHELL DO, ARACELIS [facility] LAB [id number] 06/23/2013 08:50:00 06/23/2013 23:59:59 CLS Outpatient MITCHELL DO, ARACELIS [facility] RAD [id number] 05/25/2013 09:13:00 05/25/2013 23:59:59 CLS Outpatient MITCHELL DO, ARACELIS [facility] LAB [id number] 12/24/2017 11:50:00 ACT Inpatient ORENDER DO FABIAN S [facility] 4TH COPD EXACBERATION, FAILED OUTPATIENT TREATMENT [id number] 06/01/2015 09:18:00 Document Registration [id number] 06/01/2015 09:18:00 Document Registration [id number] 06/01/2015 09:18:00 Document Registration [id number] 06/01/2015 09:18:00 Document Registration [id number] 06/03/2012 09:34:00 Document Registration [id number] 05/28/2012 08:21:00 Document Registration [id number] 06/05/2010 08:57:00 Document Registration
[2017-12-25] MEDS ORDERED: LEVOBUNOLOL HCL OU SCH (09:00)
[2017-12-25 12:00] VITALS: BP 188/99
[2017-12-25] MEDS: FLUCONAZOLE IV SCH (12:22)
[2017-12-25] MEDS: NS IV SCH (12:22)
[2017-12-25] MEDS: ENOXAPARIN 40 MG/0.4 ML (LOVENOX) SYR SC SCH (12:22)
[2017-12-25] MEDS ORDERED: amLODIPine 5 MG (NORVASC) TAB PO ONE (12:45)
--- NOTE | 2017-12-25 12:59 | Progress Note (SOAP) ---
Subjective Date Seen by Provider: Dec 25, 2017 Time Seen by Provider: 12:56 Subjective/Events-last exam Fwup COPD exacerbation, cough, allergic rhinitis, thrush. Cough not as severe. BP has been up. Objective Exam Vital Signs Date Time Temp Pulse Resp B/P (MAP) Pulse Ox O2 Delivery O2 Flow Rate FiO2 12/25/17 12:00 98.2 82 20 188/99 (128) 97 Nasal Cannula 2.00 12/25/17 11:14 88 Room Air 12/25/17 08:58 Nasal Cannula 1.50 12/25/17 08:00 98.5 80 20 184/97 (126) 95 Room Air 12/25/17 07:00 75 12/25/17 06:29 90 Nasal Cannula 2.00 12/25/17 03:31 97.1 76 18 162/94 (116) 93 Nasal Cannula 2.00 12/25/17 02:18 94 Nasal Cannula 2.00 12/25/17 01:00 66 12/25/17 00:00 96.0 91 20 139/90 (106) 92 Nasal Cannula 2.00 12/24/17 21:00 Nasal Cannula 1.50 12/24/17 19:43 98.7 82 20 158/87 (110) 93 Room Air 12/24/17 19:16 81 12/24/17 16:00 99.2 71 20 157/98 (117) 95 Room Air 12/24/17 15:10 87 Room Air I & O 12/25/17 07:00 Intake Total 4580 ml Output Total 3600 ml Balance 980 ml Capillary Refill : General Appearance: No Apparent Distress Neck: Supple Respiratory: Lungs Clear Cardiovascular: Regular Rate, Rhythm Gastrointestinal: normal bowel sounds, non tender, soft Extremity: Non Tender, No Calf Tenderness, No Pedal Edema Neurologic/Psychiatric: Alert, Oriented x3 Results Lab Laboratory Tests 12/24/17 13:05: White Blood Count 18.6H, Red Blood Count 4.65, Hemoglobin 13.9, Hematocrit 40, Mean Corpuscular Volume 85, Mean Corpuscular Hemoglobin 30, Mean Corpuscular Hemoglobin Concent 35, Red Cell Distribution Width 13.7, Platelet Count 281, Mean Platelet Volume 9.4, Neutrophils (%) (Auto) 72, Lymphocytes (%) (Auto) 18, Monocytes (%) (Auto) 9, Eosinophils (%) (Auto) 0, Basophils (%) (Auto) 0, Neutrophils # (Auto) 13.4H, Lymphocytes # (Auto) 3.4, Monocytes # (Auto) 1.6H, Eosinophils # (Auto) 0.1, Basophils # (Auto) 0.0, Neutrophils % (Manual) 73, Lymphocytes % (Manual) 18, Monocytes % (Manual) 5, Eosinophils % (Manual) 0, Basophils % (Manual) 0, Band Neutrophils 4, Blood Morphology Comment NORMAL, Sodium Level 136, Potassium Level 3.2L, Chloride Level 100, Carbon Dioxide Level 25, Anion Gap 11, Blood Urea Nitrogen 12, Creatinine 0.76, Estimat Glomerular Filtration Rate > 60, BUN/Creatinine Ratio 16, Glucose Level 120H, Calcium Level 9.3, Total Bilirubin 0.6, Aspartate Amino Transf (AST/SGOT) 18, Alanine Aminotransferase (ALT/SGPT) 22, Alkaline Phosphatase 64, Total Protein 6.3L, Albumin 3.5 Assessment/Plan Assessment/Plan Assess & Plan/Chief Complaint 1. COPD exacerbation--continue oxygen, SVNS, IV solumedrol 2. Cough--improving with above treatment 3. Allergic Rhinitis--continue current meds 4. Hypertension--amlodopine now, likely related to IV steroids and SVNs 5. Thrush--improving with oral nystatin and IV diflucan Clinical Quality Measures DVT/VTE Risk/Contraindication: Risk Factor Score Per Nursin RFS Level Per Nursing on Admit: 4+=Very High FABIAN MAE DO Dec 25, 2017 12:59
[2017-12-25 16:00] VITALS: BP 147/82
[2017-12-25 19:43] VITALS: BP 162/90
[2017-12-25] MEDS: MONTELUKAST 10 MG (SINGULAIR) TAB PO SCH (20:33)
[2017-12-25] MEDS: MELATONIN 3 MG TABLET PO SCH (20:33)
[2017-12-25] MEDS: SIMvastatin 10 MG (ZOCOR) TAB PO SCH (20:33)
[2017-12-25] MEDS: LATANOPROST 0.005% (XALATAN) OPHTH SOLN 2.5 ML OU SCH (20:34)
[2017-12-25] MEDS: ACETAMINOPHEN 500 MG TAB (TYLENOL) PO PRN (23:30)
[2017-12-26] VITALS: BP 134/79
[2017-12-26] MEDS: RT-ALBUTEROL/IPRATROPIUM 3 ML (DUONEB) VIAL IH SCH ×6 (01:57→23:07)
[2017-12-26 04:28] VITALS: BP 150/97
[2017-12-26] MEDS: methylPREDNISolone 40 MG/ML (Solu-MEDROL) VIAL IV SCH ×2 (05:43→11:03)
[2017-12-26] MEDS: NYSTATIN ORAL SUSP 5 ML UDC PO SCH ×4 (05:43→23:46)
[2017-12-26 05:56] LABS: BASOPHILS % (AUTO) 0 % (0-10); EOSINOPHILS % (AUTO) 0 % (0-10); HEMATOCRIT 38 % (35-52); HEMOGLOBIN 13.1 G/DL (11.5-16.0); LYMPHOCYTES # (AUTO) 1.5 X 10^3 (1.0-4.0); LYMPHOCYTES % (AUTO) 7 % (12-44); MEAN CORPUSCULAR HEMOGLOBIN 30 PG (25-34); MEAN CORPUSCULAR HGB CONC 35 G/DL (32-36); MEAN CORPUSCULAR VOLUME 86 FL (80-99); MEAN PLATELET VOLUME 9.7 FL (7.4-10.4); MONOCYTES # (AUTO) 0.7 X 10^3 (0.0-1.0); MONOCYTES % (AUTO) 3 % (0-12); NEUTROPHILS # (AUTO) 19.4 X 10^3 (1.8-7.8); NEUTROPHILS % (AUTO) 90 % (42-75); PLATELET COUNT 261 10^3/uL (130-400); RED CELL DISTRIBUTION WIDTH 13.6 % (10.0-14.5); WHITE BLOOD COUNT 21.7 10^3/uL (4.3-11.0)
[2017-12-26 06:12] LABS: BAND NEUTROPHILS 9 %; BASOPHILS % (MANUAL) 0 %; EOSINOPHILS % (MANUAL) 1 %; LYMPHOCYTES % (MANUAL) 3 %; METAMYELOCYTES % 1 %; MONOCYTES % (MANUAL) 3 %; NEUTROPHILS % (MANUAL) 78 %; RBC MORPH NORMAL; REACTIVE LYMPHOCYTES 5 %
[2017-12-26 06:18] LABS: ALANINE AMINOTRANSFERASE 23 U/L (0-55); ALBUMIN 3.2 GM/DL (3.2-4.5); ALKALINE PHOSPHATASE 55 U/L (40-136); BILIRUBIN,TOTAL 0.6 MG/DL (0.1-1.0); BUN/CREATININE RATIO 16; CALCIUM 8.3 MG/DL (8.5-10.1); CARBON DIOXIDE 23 MMOL/L (21-32); CHLORIDE 105 MMOL/L (98-107); GFR ESTIMATED > 60; GLUCOSE 151 MG/DL (70-105); POTASSIUM 3.1 MMOL/L (3.6-5.0); SODIUM 138 MMOL/L (135-145); TOTAL PROTEIN 5.9 GM/DL (6.4-8.2)
[2017-12-26 08:00] VITALS: BP 150/88
[2017-12-26] MEDS: amLODIPine 5 MG (NORVASC) TAB PO SCH (08:00)
[2017-12-26] MEDS: LORATADINE (CLARITIN) 10 MG TAB PO SCH (08:00)
[2017-12-26] MEDS: FAMOTIDINE 20 MG (PEPCID) TABLET PO SCH (08:00)
[2017-12-26] MEDS: ASPIRIN E.C. 81 MG (ECOTRIN) TAB PO SCH (08:01)
[2017-12-26] MEDS: NS IV 1000 ML 1,000 ML IV SCH (11:03)
[2017-12-26] MEDS: FLUCONAZOLE IV SCH (11:04)
[2017-12-26] MEDS: NS IV SCH (11:04)
[2017-12-26 12:00] VITALS: BP 158/101
[2017-12-26] MEDS: ENOXAPARIN 40 MG/0.4 ML (LOVENOX) SYR SC SCH (12:14)
--- NOTE | 2017-12-26 12:56 | Progress Note (SOAP) ---
Subjective Date Seen by Provider: Dec 26, 2017 Time Seen by Provider: 12:55 Subjective/Events-last exam Fwup COPD exacerbation, cough, allergic rhinitis, thrush. Cough better and BP improved. Objective Exam Vital Signs Date Time Temp Pulse Resp B/P (MAP) Pulse Ox O2 Delivery O2 Flow Rate FiO2 12/26/17 11:12 94 Nasal Cannula 2.00 12/26/17 08:00 Nasal Cannula 2.00 12/26/17 08:00 98.4 79 18 150/88 (108) 93 Nasal Cannula 2.00 12/26/17 07:04 94 Nasal Cannula 2.00 12/26/17 07:00 68 12/26/17 04:28 98.6 83 19 150/97 (114) 94 Nasal Cannula 2.00 12/26/17 01:57 96 Nasal Cannula 2.00 12/26/17 01:00 67 12/26/17 00:00 99.4 74 18 134/79 (97) 96 Nasal Cannula 2.00 12/25/17 23:17 96 Nasal Cannula 2.00 12/25/17 19:55 Nasal Cannula 2.00 12/25/17 19:43 98.9 80 20 162/90 (114) 92 Nasal Cannula 2.00 12/25/17 19:06 97 Nasal Cannula 2.00 12/25/17 19:00 86 12/25/17 16:00 98.8 78 20 147/82 (103) 95 Room Air 12/25/17 14:54 95 Nasal Cannula 2.00 12/25/17 13:00 98 I & O 12/26/17 07:00 Intake Total 6810 ml Output Total 6600 ml Balance 210 ml Capillary Refill : General Appearance: No Apparent Distress Neck: Supple Respiratory: Crackles (bases), Decreased Breath Sounds Cardiovascular: Regular Rate, Rhythm Gastrointestinal: normal bowel sounds, non tender, soft Extremity: Non Tender, No Calf Tenderness, No Pedal Edema Neurologic/Psychiatric: Alert, Oriented x3 Results Lab Laboratory Tests 12/26/17 05:35: White Blood Count 21.7H, Red Blood Count 4.40, Hemoglobin 13.1, Hematocrit 38, Mean Corpuscular Volume 86, Mean Corpuscular Hemoglobin 30, Mean Corpuscular Hemoglobin Concent 35, Red Cell Distribution Width 13.6, Platelet Count 261, Mean Platelet Volume 9.7, Neutrophils (%) (Auto) 90H, Lymphocytes (%) (Auto) 7L , Monocytes (%) (Auto) 3, Eosinophils (%) (Auto) 0, Basophils (%) (Auto) 0, Neutrophils # (Auto) 19.4H, Lymphocytes # (Auto) 1.5, Monocytes # (Auto) 0.7, Eosinophils # (Auto) 0.0, Basophils # (Auto) 0.0, Neutrophils % (Manual) 78, Lymphocytes % (Manual) 3, Monocytes % (Manual) 3, Eosinophils % (Manual) 1, Basophils % (Manual) 0, Metamyelocytes % 1, Band Neutrophils 9, Reactive Lymphocytes 5, Blood Morphology Comment NORMAL, Sodium Level 138, Potassium Level 3.1L, Chloride Level 105, Carbon Dioxide Level 23, Anion Gap 10, Blood Urea Nitrogen 11, Creatinine 0.70, Estimat Glomerular Filtration Rate > 60, BUN/ Creatinine Ratio 16, Glucose Level 151H, Calcium Level 8.3L, Total Bilirubin 0.6 , Aspartate Amino Transf (AST/SGOT) 19, Alanine Aminotransferase (ALT/SGPT) 23, Alkaline Phosphatase 55, Total Protein 5.9L, Albumin 3.2 Assessment/Plan Assessment/Plan Assess & Plan/Chief Complaint 1. COPD exacerbation--continue oxygen, SVNS, decrease IV solumedrol 2. Cough--improving with above treatment 3. Allergic Rhinitis--continue current meds 4. Hypertension--amlodopine now, likely related to IV steroids and SVNs 5. Thrush--improving with oral nystatin and IV diflucan Clinical Quality Measures DVT/VTE Risk/Contraindication: Risk Factor Score Per Nursin RFS Level Per Nursing on Admit: 4+=Very High FABIAN MAE DO Dec 26, 2017 12:56
--- NOTE | 2017-12-26 13:47 | Pulmonary Consultation ---
History of Present Illness History of Present Illness Date of Consultation 12/26/17 13:45 Time Seen by Provider: 08:47 Date of Admission History of Present Illness 67yo presented to ED secondary to worsening SOB and cough. Pt was recently tx as out patient with Abx, and steroids. PT has failed out patient treatment and symptoms continue to worsen. Pt was admitted from my office and placed on IV steroids and SVNs. Pt was also found to have bad Thrush and was placed on IV Diflucan at admission. I am consulted for pulmonary management. Allergies and Home Medications Allergies Coded Allergies: No Known Drug Allergies (Verified , 08/08/16) Home Medications Albuterol Sulfate 18 Gm Hfa.aer.ad, 2 PUFF INH Q4H PRN for SHORTNESS OF BREATH, (Reported) Amlodipine Besylate 5 Mg Tablet, 5 MG PO DAILY, #30 Prescribed by: FABIAN MAE on 12/27/17 1253 Aspirin 81 Mg Tablet.dr, 81 MG PO DAILY, (Reported) Budesonide/Formoterol Fumarate 10.2 Gm Hfa.aer.ad, 2 PUFF INH BID, (Reported) Calcium Carbonate/Vitamin D3 1 Each Tablet, 1 TAB PO HS, (Reported) Cetirizine HCl 10 Mg Tablet, 10 MG PO DAILY, (Reported) Cholecalciferol (Vitamin D3) 2,000 Unit Capsule, 2,000 UNIT PO BID, (Reported) Fluconazole 100 Mg Tablet, 100 MG PO DAILY for 7 Days, (Reported) 7 DAY SUPPLY FILLED 12-24-17 Ipratropium/Albuterol Sulfate 3 Ml Ampul.neb, 3 ML IH RTQ4HR, #100 Prescribed by: FABIAN MAE on 12/27/17 1253 Latanoprost 2.5 Ml Drops, 1 DROP OU HS, (Reported) Levobunolol HCl 5 Ml Drops, 1 DROP OU DAILY, (Reported) Melatonin 10 Mg Tablet, 10 MG PO HS, (Reported) Montelukast Sodium 10 Mg Tablet, 10 MG PO HS, (Reported) Nystatin 100,000 Unit/1 Ml Oral.susp, 5 ML PO Q6HR for 7 Days, #140 Prescribed by: FABIAN MAE on 12/27/17 1253 [place] 3 Polyunsat Fatty Acids 1,000 Mg Cap, 1,000 MG PO DAILY, (Reported) Pravastatin Sodium 20 Mg Tablet, 20 MG PO HS, (Reported) Prednisone 10 Mg Tab, PO UD for 12 Days, (Reported) TAKE 6 TABLETS BY MOUTH ON DAY 1&2, 5 TABLET 3&4, 4 TABLET 5&6, 3 TABLET 7&8 , 2 TABLET 9&10, 1 TABLET 11&12 12 DAY THERAPY FILLED 12-17-17 Past Vzsspzl-Nloynr-Vwqicv Hx Patient Social History Alcohol Use: Denies Use Recreational Drug Use: No Smoking Status: Never a Smoker Recent Foreign Travel: No Contact w/Someone Who Travel: No Recent Infectious Disease Expo: No Immunizations Up To Date Date of Pneumonia Vaccine: Aug 23, 2017 Date of Influenza Vaccine: Aug 23, 2017 Seasonal Allergies Seasonal Allergies: Yes Surgeries History of Surgeries: Yes (gb surgery ) Respiratory History of Respiratory Disorde: No Cardiovascular History of Cardiac Disorders: Yes Neurological History of Neurological Disord: No Genitourinary History of Genitourinary Disor: No Gastrointestinal History of Gastrointestinal Di: Yes Gastrointestinal Disorders: Gastroesophageal Reflux Musculoskeletal History of Musculoskeletal Dis: Yes Musculoskeletal Disorders: Fibromyalgia Endocrine History of Endocrine Disorders: No HEENT History of HEENT Disorders: No Cancer History of Cancer: No Psychosocial History of Psychiatric Problem: No Integumentary History of Skin or Integumenta: No Blood Transfusions History of Blood Disorders: No Review of Systems Time Seen by Provider: 08:50 Constitutional: Fever, Chills, Sweats, Weakness, Malaise Eyes: No: Pain, Vision change, Conjunctivae inflammation, Eyelid inflammation, Other, Redness ENT: Nose congestion, No: Ear pain, Ear discharge, Nose pain, Nose discharge, Mouth pain, Mouth swelling, Throat pain, Throat swelling, Other Respiratory: Cough, Shortness of breath, SOB with excertion, Wheezing, Sputum, No: Hemoptysis Cardiovascular: Paroxysmal Noc. Dyspnea, No: Chest Pain, Palpitations Gastrointestinal: No: Nausea, Vomiting, Abdominal Pain, Diarrhea, Constipation , Melena, Hematochezia, Other Neurological: Weakness, Incoordination, Confusion Exam Exam Vital Signs Date Time Temp Pulse Resp B/P (MAP) Pulse Ox O2 Delivery O2 Flow Rate FiO2 12/26/17 12:00 97.9 80 16 158/101 (120) 95 Nasal Cannula 2.00 12/26/17 11:12 94 Nasal Cannula 2.00 12/26/17 08:00 Nasal Cannula 2.00 12/26/17 08:00 98.4 79 18 150/88 (108) 93 Nasal Cannula 2.00 12/26/17 07:04 94 Nasal Cannula 2.00 12/26/17 07:00 68 12/26/17 04:28 98.6 83 19 150/97 (114) 94 Nasal Cannula 2.00 12/26/17 01:57 96 Nasal Cannula 2.00 12/26/17 01:00 67 12/26/17 00:00 99.4 74 18 134/79 (97) 96 Nasal Cannula 2.00 12/25/17 23:17 96 Nasal Cannula 2.00 12/25/17 19:55 Nasal Cannula 2.00 12/25/17 19:43 98.9 80 20 162/90 (114) 92 Nasal Cannula 2.00 12/25/17 19:06 97 Nasal Cannula 2.00 12/25/17 19:00 86 12/25/17 16:00 98.8 78 20 147/82 (103) 95 Room Air 12/25/17 14:54 95 Nasal Cannula 2.00 I & O 12/26/17 07:00 Intake Total 6810 ml Output Total 6600 ml Balance 210 ml General Appearance: No Apparent Distress HEENT: PERRL/EOMI, Normal ENT Inspection, Pharynx Normal, Other (thrush) Neck: Supple Respiratory: Crackles (bases), Decreased Breath Sounds Cardiovascular: Regular Rate, Rhythm Gastrointestinal: normal bowel sounds, non tender, soft Extremity: Non Tender, No Calf Tenderness, No Pedal Edema Neurologic/Psychiatric: Alert, Oriented x3 Skin: Normal Color, Warm/Dry Lymphatic: No Adenopathy Results Lab Laboratory Tests 12/26/17 05:35 Assessment/Plan Assessment/Plan COPD AE -SOlumedrol -SVNS Thrush -IV difucan and oral nystatin Allergic Rhinitis 254 Clinical Quality Measures DVT/VTE Risk/Contraindication: Risk Factor Score Per Nursin RFS Level Per Nursing on Admit: 4+=Very High LETI BRANCH DO Dec 26, 2017 13:47
[2017-12-26 16:00] VITALS: BP 158/91
[2017-12-26 20:00] VITALS: BP 163/93
[2017-12-26] MEDS: MONTELUKAST 10 MG (SINGULAIR) TAB PO SCH (20:24)
[2017-12-26] MEDS: SIMvastatin 10 MG (ZOCOR) TAB PO SCH (20:24)
[2017-12-26] MEDS: MELATONIN 3 MG TABLET PO SCH (20:24)
[2017-12-26] MEDS: LATANOPROST 0.005% (XALATAN) OPHTH SOLN 2.5 ML OU SCH (20:25)
[2017-12-26] MEDS ORDERED: methylPREDNISolone 40 MG/ML (Solu-MEDROL) VIAL IV SCH (21:00)
[2017-12-27] VITALS: BP 169/80
[2017-12-27 04:00] VITALS: BP 159/93
[2017-12-27] MEDS: NYSTATIN ORAL SUSP 5 ML UDC PO SCH ×4 (05:42→23:19)
[2017-12-27] MEDS: RT-ALBUTEROL/IPRATROPIUM 3 ML (DUONEB) VIAL IH SCH ×6 (05:44→22:22)
[2017-12-27 08:00] VITALS: BP 168/98
--- NOTE | 2017-12-27 08:05 | Pulmonary Progress Note ---
Subjective Time Seen by Provider: 08:11 Subjective/Events-last exam pt feels improved. Exam Exam Vital Signs Date Time Temp Pulse Resp B/P (MAP) Pulse Ox O2 Delivery O2 Flow Rate FiO2 12/27/17 07:22 96 Nasal Cannula 1.50 12/27/17 04:00 97.3 81 18 159/93 (115) 94 Nasal Cannula 2.00 12/27/17 00:00 98.4 96 17 169/80 (109) 96 Nasal Cannula 2.00 12/26/17 23:07 Nasal Cannula 2.00 12/26/17 20:00 97.7 87 20 163/93 (116) 94 Nasal Cannula 2.00 12/26/17 19:55 94 Nasal Cannula 2.00 12/26/17 19:30 95 Nasal Cannula 2.00 12/26/17 16:00 98.4 99 20 158/91 (113) 92 Nasal Cannula 2.00 12/26/17 14:37 93 Nasal Cannula 2.00 12/26/17 13:00 85 12/26/17 12:00 97.9 80 16 158/101 (120) 95 Nasal Cannula 2.00 12/26/17 11:12 94 Nasal Cannula 2.00 I & O 12/27/17 07:00 Intake Total 5415 ml Output Total 6800 ml Balance -1385 ml General Appearance: No Apparent Distress HEENT: Other (thrush) Neck: Supple Respiratory: Crackles (bases), Decreased Breath Sounds Cardiovascular: Regular Rate, Rhythm Gastrointestinal: normal bowel sounds, non tender, soft Extremity: Non Tender, No Calf Tenderness, No Pedal Edema Neurologic/Psychiatric: Alert, Oriented x3 Skin: Normal Color, Warm/Dry Results Lab Laboratory Tests 12/26/17 05:35 Assessment/Plan Assessment/Plan COPD AE -SOlumedrol - change to prednisone taper -SVNS Thrush -IV difucan and oral nystatin Allergic Rhinitis Will have RT walk pt to see if she still needs oxygen. PT is ok for discharge from pulmonary standpoint. 232 Clinical Quality Measures DVT/VTE Risk/Contraindication: Risk Factor Score Per Nursin RFS Level Per Nursing on Admit: 4+=Very High LETI BRANCH DO Dec 27, 2017 08:05
[2017-12-27] MEDS: ASPIRIN E.C. 81 MG (ECOTRIN) TAB PO SCH (08:13)
[2017-12-27] MEDS: FAMOTIDINE 20 MG (PEPCID) TABLET PO SCH (08:13)
[2017-12-27] MEDS: amLODIPine 5 MG (NORVASC) TAB PO SCH (08:13)
[2017-12-27] MEDS: LORATADINE (CLARITIN) 10 MG TAB PO SCH (08:14)
[2017-12-27] MEDS: predniSONE 10 MG TAB PO SCH (08:14)
--- NOTE | 2017-12-27 08:48 | Diagnostic Imaging Report ---
Indication: Pneumonia. Comparison: 12/24/2017 Findings: Frontal and lateral views the chest demonstrate unchanged subsegmental atelectasis and/or infiltrate in the left lung base. The right lung is clear. The heart is normal. There was no pneumothorax. Osseous structures are age appropriate. Impression: Stable infiltrate and/or atelectasis left base. Dictated by: Dictated on workstation # [id number]
[2017-12-27] MEDS: ENOXAPARIN 40 MG/0.4 ML (LOVENOX) SYR SC SCH (11:30)
[2017-12-27] MEDS: ACETAMINOPHEN 500 MG TAB (TYLENOL) PO PRN (11:34)
[2017-12-27 12:00] VITALS: BP 168/98
[2017-12-27] MEDS ORDERED: fluCOnazole (DIFLUCAN) 100 MG TAB PO SCH (12:00)
--- NOTE | 2017-12-27 12:48 | Progress Note (SOAP) ---
Subjective Date Seen by Provider: Dec 27, 2017 Time Seen by Provider: 11:15 Subjective/Events-last exam Fwup COPD exacerbation, cough, allergic rhinitis, thrush. Oxygen saturation dropped to 86% after 3minutes of ambulating on room air. Still with cough but not as severe. Objective Exam Vital Signs Date Time Temp Pulse Resp B/P (MAP) Pulse Ox O2 Delivery O2 Flow Rate FiO2 12/27/17 10:23 97 Nasal Cannula 2.00 12/27/17 08:57 95 2.00 12/27/17 08:00 97.7 84 20 168/98 (121) 93 Nasal Cannula 2.00 12/27/17 07:22 96 Nasal Cannula 1.50 12/27/17 04:00 97.3 81 18 159/93 (115) 94 Nasal Cannula 2.00 12/27/17 00:00 98.4 96 17 169/80 (109) 96 Nasal Cannula 2.00 12/26/17 23:07 Nasal Cannula 2.00 12/26/17 20:00 97.7 87 20 163/93 (116) 94 Nasal Cannula 2.00 12/26/17 19:55 94 Nasal Cannula 2.00 12/26/17 19:30 95 Nasal Cannula 2.00 12/26/17 16:00 98.4 99 20 158/91 (113) 92 Nasal Cannula 2.00 12/26/17 14:37 93 Nasal Cannula 2.00 12/26/17 13:00 85 I & O 12/27/17 07:00 Intake Total 5415 ml Output Total 6800 ml Balance -1385 ml Capillary Refill : General Appearance: Mild Distress Neck: Supple Respiratory: Lungs Clear, Decreased Breath Sounds (bases) Cardiovascular: Regular Rate, Rhythm Gastrointestinal: normal bowel sounds, non tender, soft Extremity: Non Tender, No Calf Tenderness, No Pedal Edema Neurologic/Psychiatric: Alert, Oriented x3 Skin: Warm/Dry Assessment/Plan Assessment/Plan Assess & Plan/Chief Complaint 1. COPD exacerbation--continue oxygen, SVNS, DC IV solumedrol and switch to oral prednisone--if tolerates this then plan for DC in AM 2. Cough--improving with above treatment 3. Allergic Rhinitis--continue current meds 4. Hypertension--amlodopine started 5. Thrush--improving with oral nystatin and IV diflucan Clinical Quality Measures DVT/VTE Risk/Contraindication: Risk Factor Score Per Nursin RFS Level Per Nursing on Admit: 4+=Very High FABIAN MAE DO Dec 27, 2017 12:48 pm
[2017-12-27] MEDS ORDERED: IPRA3AMP IH (12:53)
[2017-12-27] MEDS ORDERED: AMLO5TAB2 PO (12:53)
[2017-12-27] MEDS ORDERED: NYST1000 PO (12:53)
[2017-12-27 16:00] VITALS: BP 142/89
[2017-12-27 19:51] VITALS: BP 136/89
[2017-12-27] MEDS: MELATONIN 3 MG TABLET PO SCH (20:33)
[2017-12-27] MEDS: SIMvastatin 10 MG (ZOCOR) TAB PO SCH (20:33)
[2017-12-27] MEDS: LATANOPROST 0.005% (XALATAN) OPHTH SOLN 2.5 ML OU SCH (20:33)
[2017-12-27] MEDS: MONTELUKAST 10 MG (SINGULAIR) TAB PO SCH (20:33)
[2017-12-28 00:45] VITALS: BP 160/97
[2017-12-28] MEDS: RT-ALBUTEROL/IPRATROPIUM 3 ML (DUONEB) VIAL IH SCH ×3 (01:44→10:57)
[2017-12-28 04:00] VITALS: BP 152/91
[2017-12-28] MEDS: NYSTATIN ORAL SUSP 5 ML UDC PO SCH (05:20)
[2017-12-28 08:00] VITALS: BP 141/98
[2017-12-28] MEDS: predniSONE 10 MG TAB PO SCH (08:23)
[2017-12-28] MEDS: ASPIRIN E.C. 81 MG (ECOTRIN) TAB PO SCH (08:23)
[2017-12-28] MEDS: amLODIPine 5 MG (NORVASC) TAB PO SCH (08:23)
[2017-12-28] MEDS: LORATADINE (CLARITIN) 10 MG TAB PO SCH (08:23)
[2017-12-28] MEDS: FAMOTIDINE 20 MG (PEPCID) TABLET PO SCH (08:23)
[2017-12-28 12:30] VITALS: BP 127/70
== END 2017-12-28 12:15 | disposition home or self-care (01) | DRG 191 ==
LOC: 4TH 11:50
PROVIDERS: ADMIT Family Medicine; ATTEND Family Medicine
DX: J44.1 Chronic obstructive pulmonary disease with (acute) exacerbation (principal); B37.0 Candidal stomatitis; J30.9 Allergic rhinitis, unspecified; K21.9 Gastro-esophageal reflux disease without esophagitis; M79.7 Fibromyalgia; I10 Essential (primary) hypertension
CPT/HCPCS: 36415; 71046; 80053; 85007; 85027; 94640; 94760; 94761

== ENCOUNTER → 2018-02-12 | Outpatient (CLI) | payer MEDICARE ==
[~2018-02-12] MED LIST changes: +ALBU18HF2 INH; +ALBU2.5V4 NEB; +ALEN70TA47 PO; +AMLO5TAB2 PO; +ASPI-983 PO; +BENZ-36 PO; +BUDE10.2 INH; +CETI10TA17 PO; +CHOL20003 PO; +FLUC100T6 PO; +FLUT16SP22 NS; +IPRA3AMP IH; +LATA2.5D5 OU; +LORA10TA76 PO; +MELA10TA2 PO; +MONT10TA24 PO; +NYST1000 PO; +PRD10T PO
--- NOTE | 2018-02-12 11:22 | Diagnostic Imaging Report ---
INDICATION: COPD and cough. TIME OF EXAM: 10:40 AM Correlation is made with prior study from 12/27/2017. FINDINGS: The heart size is normal. The lungs are clear. No infiltrates are seen. There is no effusion or pneumothorax identified. IMPRESSION: No acute feature is detected. Dictated by: Dictated on workstation # [id number]
== END ==
LOC: RAD 10:11
PROVIDERS: ATTEND Nurse Practitioner Family
DX: J44.9 Chronic obstructive pulmonary disease, unspecified (principal)
CPT/HCPCS: 71046

== ENCOUNTER 2018-04-22 20:05 | Outpatient (CLI) | payer MEDICARE | END 2018-04-23 06:15 | disposition home or self-care (01) | LOC: SLEEP 20:05 | PROVIDERS: ATTEND Nurse Practitioner Family | DX: G47.34 Idiopathic sleep related nonobstructive alveolar hypoventilation (principal) | CPT/HCPCS: 95811 ==

== ENCOUNTER 2018-07-22 14:00 | Outpatient (RCR) | payer MEDICARE ==
[~2018-07-22 14:00] MED LIST changes: -AMLO5TAB2 PO; +AMLO5TAB7 PO; -IPRA3AMP IH; +IPRA3AMP31 IH
[2018-07-22 14:05] VITALS: BP 130/80
[2018-07-22 15:05] VITALS: BP 130/80
[2018-07-24 14:00] VITALS: BP 130/40
[2018-07-24 15:00] VITALS: BP 110/50
[2018-07-29 14:00] VITALS: BP 140/60
[2018-07-29 15:00] VITALS: BP 120/80
[2018-07-31 14:00] VITALS: BP 136/80
[2018-07-31 15:00] VITALS: BP 114/70
[2018-08-05 13:55] VITALS: BP 124/81
[2018-08-05 14:40] VITALS: BP 129/61
== END 2018-08-03 | disposition home or self-care (01) ==
LOC: PULM 14:00
PROVIDERS: ATTEND Nurse Practitioner Family
DX: J44.9 Chronic obstructive pulmonary disease, unspecified (principal); R06.00 Dyspnea, unspecified; R09.02 Hypoxemia
CPT/HCPCS: 99211

== ENCOUNTER → 2018-07-23 | Outpatient (CLI) | payer MEDICARE ==
[~2018-07-23] MED LIST changes: +RT-ALBUTEROL SULF 2.5 MG/3 ML PRE-MIX VIAL INH ONE
== END ==
LOC: RT 08:30
PROVIDERS: ATTEND Nurse Practitioner Family
DX: R05 Cough (principal); J30.2 Other seasonal allergic rhinitis; R06.00 Dyspnea, unspecified; R94.2 Abnormal results of pulmonary function studies; J44.9 Chronic obstructive pulmonary disease, unspecified; J40 Bronchitis, not specified as acute or chronic
CPT/HCPCS: 94060; 94726; 94729

== ENCOUNTER 2018-08-04 08:00 | Outpatient (RCR) | payer MEDICARE ==
[~2018-08-04 08:00] MED LIST changes: -RT-ALBUTEROL SULF 2.5 MG/3 ML PRE-MIX VIAL INH ONE
[2018-08-07 14:00] VITALS: BP 117/60
[2018-08-07 15:00] VITALS: BP 140/79
[2018-08-12 14:00] VITALS: BP 128/70
[2018-08-12 15:00] VITALS: BP 132/70
[2018-08-14 14:00] VITALS: BP 141/60
[2018-08-14 15:00] VITALS: BP 130/75
[2018-08-28 14:00] VITALS: BP 118/80
[2018-08-28 15:00] VITALS: BP 128/60
[2018-09-02 14:00] VITALS: BP 130/77
[2018-09-02 15:00] VITALS: BP 132/60
[2018-09-04 14:00] VITALS: BP 116/70
[2018-09-04 15:00] VITALS: BP 130/50
[2018-09-09 14:00] VITALS: BP 120/90
[2018-09-09 15:00] VITALS: BP 130/70
[2018-09-11 14:00] VITALS: BP 130/80
[2018-09-11 15:00] VITALS: BP 118/70
[2018-09-18 14:00] VITALS: BP 124/80
[2018-09-18 14:54] VITALS: BP 120/60
[2018-09-23 14:00] VITALS: BP_SYST 142
[2018-09-23 15:00] VITALS: BP 130/78
[2018-09-25 15:00] VITALS: BP_SYST 130; BP_SYST 150; BP_DIAS 78; BP_DIAS 80
== END 2018-11-02 | disposition home or self-care (01) ==
LOC: PULM 08:00
PROVIDERS: ATTEND Nurse Practitioner Family
DX: J44.9 Chronic obstructive pulmonary disease, unspecified (principal); R06.00 Dyspnea, unspecified; R09.02 Hypoxemia

== ENCOUNTER → 2018-11-13 | Outpatient (CLI) | payer MEDICARE ==
--- NOTE | 2018-11-13 13:18 | Diagnostic Imaging Report ---
INDICATION: Postmenopausal osteoporosis. COMPARISON: 06/05/2010. FINDINGS: AP Spine L1-L4: [BMD (g/cm2): 0.853] [T-Score: -2.9] [Z-Score: -1.5] [BMD Previous: 0.939] [BMD % Change: -9.2] LT Hip Neck: [BMD (g/cm2): 0.801] [T-Score: -1.7] [Z-Score: -0.3] LT Hip Total: [BMD (g/cm2):0.865] [T-Score:-1.0] [Z-Score: 0.2] [BMD Previous: 0.886] [BMD % Change: N/A] RT Hip Neck: [BMD (g/cm2):0.813] [T-Score:-1.6] [Z-Score:-0.2] RT Hip Total: [BMD (g/cm2):0.863] [T-score:-1.2] [Z-Score:0.0] [BMD Previous:0.869] [BMD % Change:N/A] *Indicates significant change from prior examination based on 95% confidence level. World Health Organization criteria for BMD interpretation classify patients as Normal (T-score at or above -1.0), Osteopenic (T-score between -1.0 and -2.5) or Osteoporotic (T-score at or below -2.5). LIMITATIONS AND MODIFICATION: None. FRACTURE RISK (FRAX SCORE): The ten year probability of (%): Major Osteoporotic Fracture: [16] Hip Fracture: [2.2] IMPRESSION: 1. Osteoporosis. 2. No significant change in bone mineral density since prior examination. 3. See below National Osteoporosis Foundation guidelines on when to potentially initiate pharmacologic therapy. Based on the National Osteoporosis Foundation Guidelines, pharmacologic treatment should be initiated in any of the following, unless clinical conditions suggest otherwise: * Any patient with prior fragility fracture of the hip or vertebrae. A spine fracture indicates 5X risk for subsequent spine fracture and 2X risk for subsequent hip fracture. * Osteoporosis (T-score <-2.5). * Postmenopausal women and men age 50 and older with low bone mass/osteopenia (T-score between -1.0 and -2.5) by DXA and 10-year major osteoporotic fracture greater than 20% or a 10-year probability of hip fracture greater than 3%. These fracture risks are supplied above in the FRAX score, if applicable. * Clinician judgement and/or patient preferences may indicate treatment for people with 10-year fracture probabilities above or below these levels. Dictated by: Dictated on workstation # [id number]
== END ==
LOC: RAD 10:24
PROVIDERS: ATTEND Family Medicine
DX: M81.0 Age-related osteoporosis without current pathological fracture (principal); Z78.0 Asymptomatic menopausal state
CPT/HCPCS: 77080

== ENCOUNTER → 2018-12-03 | Outpatient (CLI) | payer MEDICARE ==
[~2018-12-03] VITALS: Ht 162.6 cm; Wt 72.6 kg
[~2018-12-03] MED LIST changes: +CHOL10007 PO; +CYAN500T2 PO; +DENOSUMAB 60 MG/1 ML (PROLIA) SQ NR; +FISH1CAP15 PO; +XYZAL
[2018-12-03 14:15] VITALS: BP 128/87
== END ==
LOC: SDC 13:14
PROVIDERS: ATTEND Family Medicine
DX: M81.0 Age-related osteoporosis without current pathological fracture (principal)
CPT/HCPCS: 96372

== ENCOUNTER → 2019-06-03 | Outpatient (CLI) | payer MEDICARE ==
[~2019-06-03] VITALS: Ht 162.6 cm; Wt 72.6 kg
[~2019-06-03] MED LIST changes: -ALEN70TA47 PO; +ALEN70TA5 PO; -AMLO5TAB7 PO; +AMLO5TAB9 PO; -DENOSUMAB 60 MG/1 ML (PROLIA) SQ NR; +DENOSUMAB 60 MG/1 ML (PROLIA) SQ ONE
[2019-06-03 13:30] VITALS: BP 126/85
== END ==
LOC: SDC 12:57
PROVIDERS: ATTEND Family Medicine
DX: M81.0 Age-related osteoporosis without current pathological fracture (principal)
CPT/HCPCS: 96372

== ENCOUNTER 2019-12-10 12:45 | Outpatient (CLI) | payer MEDICARE ==
[~2019-12-10] VITALS: Ht 162 cm; Wt 72.5 kg
[~2019-12-10 12:45] MED LIST changes: -CYAN500T2 PO; +CYAN500T62 PO; -DENOSUMAB 60 MG/1 ML (PROLIA) SQ ONE; +LEVO5DRO OU; -LEVO5DRO4 OU
[2019-12-10] MEDS ORDERED: DENOSUMAB 60 MG/1 ML (PROLIA) SQ ONE (13:00)
[2019-12-10 13:10] VITALS: BP 137/83
== END 2019-12-10 13:10 | disposition home or self-care (01) ==
LOC: SDC 12:45
PROVIDERS: ATTEND Family Medicine
DX: M81.0 Age-related osteoporosis without current pathological fracture (principal)
CPT/HCPCS: 96372

== ENCOUNTER → 2019-12-14 | Outpatient (CLI) | payer MEDICARE ==
[2019-12-14 10:39] LABS: BASOPHILS # (AUTO) 0.1 10^3/uL (0.0-0.1); BASOPHILS % (AUTO) 1 % (0-10); EOSINOPHILS # (AUTO) 0.2 10^3/uL (0.0-0.3); EOSINOPHILS % (AUTO) 4 % (0-10); HEMATOCRIT 40 % (35-52); LYMPHOCYTES # (AUTO) 2.2 X 10^3 (1.0-4.0); LYMPHOCYTES % (AUTO) 40 % (12-44); MEAN CORPUSCULAR HEMOGLOBIN 28 PG (25-34); MEAN CORPUSCULAR HGB CONC 33 G/DL (32-36); MEAN CORPUSCULAR VOLUME 86 FL (80-99); MEAN PLATELET VOLUME 9.9 FL (7.4-10.4); MONOCYTES # (AUTO) 0.5 X 10^3 (0.0-1.0); MONOCYTES % (AUTO) 9 % (0-12); NEUTROPHILS # (AUTO) 2.5 X 10^3 (1.8-7.8); NEUTROPHILS % (AUTO) 47 % (42-75); PLATELET COUNT 229 10^3/uL (130-400); RED CELL DISTRIBUTION WIDTH 13.4 % (10.0-14.5); WHITE BLOOD COUNT 5.4 10^3/uL (4.3-11.0)
[2019-12-14 10:57] LABS: ALANINE AMINOTRANSFERASE 26 U/L (0-55); ALBUMIN 4.3 GM/DL (3.2-4.5); ALKALINE PHOSPHATASE 58 U/L (40-136); BILIRUBIN,TOTAL 0.9 MG/DL (0.1-1.0); BUN/CREATININE RATIO 14; CALCIUM 9.4 MG/DL (8.5-10.1); CARBON DIOXIDE 25 MMOL/L (21-32); CHLORIDE 108 MMOL/L (98-107); CHOLESTEROL 179 MG/DL (< 200); CREATININE SERUM 0.83 MG/DL (0.60-1.30); GFR ESTIMATED > 60; GLUCOSE 109 MG/DL (70-105); HDL CHOLESTEROL 46 MG/DL (40-60); POTASSIUM 3.6 MMOL/L (3.6-5.0); SODIUM 141 MMOL/L (135-145); TRIGLYCERIDES 199 MG/DL (<150); VLDL CHOLESTEROL 40 MG/DL (5-40)
[2019-12-14 11:19] LABS: FREE T4 (FREE THYROXINE) 0.94 NG/DL (0.70-1.48)
--- NOTE | 2019-12-14 11:55 | Diagnostic Imaging Report ---
INDICATION: Routine screening. COMPARISON: Comparison is made with prior mammograms from 08/20/2017 and 07/24/2016. 2-D and 3-D bilateral screening mammography was performed. The current study was also evaluated with a Computer Aided Detection (CAD) system. 3-D tomosynthesis was also performed and reviewed. FINDINGS: Scattered fibroglandular densities are identified bilaterally. The parenchymal pattern is stable. No mass or malignant-appearing microcalcifications are seen. Axillae are unremarkable. IMPRESSION: No mammographic features suspicious for malignancy are identified. ACR BI-RADS Category 1: Negative. Result letter will be mailed to the patient. Note: At least 10% of breast cancer is not imaged by mammography. Dictated by: Dictated on workstation # [id number]
== END ==
LOC: RAD 10:03
PROVIDERS: ATTEND Family Medicine
DX: Z12.31 Encounter for screening mammogram for malignant neoplasm of breast (principal); E78.5 Hyperlipidemia, unspecified; E55.9 Vitamin D deficiency, unspecified; R53.83 Other fatigue; M81.0 Age-related osteoporosis without current pathological fracture
CPT/HCPCS: 36415; 77067; 80053; 80061; 82306; 84439; 84443; 85025

== ENCOUNTER → 2020-06-09 | Outpatient (CLI) | payer MEDICARE ==
[~2020-06-09] MED LIST changes: -MONT10TA24 PO; +MONT10TA26 PO
== END ==
LOC: LAB 13:27
PROVIDERS: ATTEND Family Medicine
DX: E55.9 Vitamin D deficiency, unspecified (principal)
CPT/HCPCS: 36415; 82306

== ENCOUNTER → 2020-06-09 | Outpatient (CLI) | payer MEDICARE ==
[~2020-06-09] VITALS: Ht 167.7 cm; Wt 72.5 kg
[~2020-06-09] MED LIST changes: +DENOSUMAB 60 MG/1 ML (PROLIA) SQ SCH
[2020-06-09 13:20] VITALS: BP 115/81
== END ==
LOC: SDC 12:48
PROVIDERS: ATTEND Family Medicine
DX: M81.0 Age-related osteoporosis without current pathological fracture (principal)
CPT/HCPCS: 96372

== ENCOUNTER → 2020-09-14 | Outpatient (CLI) | payer MEDICARE ==
[~2020-09-14] MED LIST changes: -ALEN70TA5 PO; +ALEN70TA69 PO; +AMLO-250 PO; -AMLO5TAB9 PO; +ASPI-1238 PO; -ASPI-983 PO; -CALC-6 PO; +CALC1TAB84 PO; -DENOSUMAB 60 MG/1 ML (PROLIA) SQ SCH
[2020-09-14 11:08] LABS: BASOPHILS # (AUTO) 0.1 10^3/uL (0.0-0.1); BASOPHILS % (AUTO) 1 % (0-10); EOSINOPHILS # (AUTO) 0.2 10^3/uL (0.0-0.3); EOSINOPHILS % (AUTO) 4 % (0-10); HEMATOCRIT 40 % (35-52); HEMOGLOBIN 13.2 g/dL (11.5-16.0); LYMPHOCYTES # (AUTO) 2.6 10^3/uL (1.0-4.0); LYMPHOCYTES % (AUTO) 45 % (12-44); MEAN CORPUSCULAR HEMOGLOBIN 29 pg (25-34); MEAN CORPUSCULAR HGB CONC 33 g/dL (32-36); MEAN CORPUSCULAR VOLUME 87 fL (80-99); MEAN PLATELET VOLUME 9.9 fL (9.0-12.2); MONOCYTES # (AUTO) 0.6 10^3/uL (0.0-1.0); MONOCYTES % (AUTO) 9 % (0-12); NEUTROPHILS # (AUTO) 2.4 10^3/uL (1.8-7.8); NEUTROPHILS % (AUTO) 41 % (42-75); PLATELET COUNT 213 10^3/uL (130-400); WHITE BLOOD COUNT 5.9 10^3/uL (4.3-11.0)
[2020-09-14 11:23] LABS: ALANINE AMINOTRANSFERASE 34 U/L (0-55); ALBUMIN 4.2 GM/DL (3.2-4.5); ALKALINE PHOSPHATASE 49 U/L (40-136); BILIRUBIN,TOTAL 0.9 MG/DL (0.1-1.0); BUN/CREATININE RATIO 17; CALCIUM 10.1 MG/DL (8.5-10.1); CARBON DIOXIDE 26 MMOL/L (21-32); CHLORIDE 106 MMOL/L (98-107); CHOLESTEROL 185 MG/DL (< 200); GFR ESTIMATED > 60; GLUCOSE 103 MG/DL (70-105); HDL CHOLESTEROL 48 MG/DL (40-60); POTASSIUM 3.8 MMOL/L (3.6-5.0); SODIUM 141 MMOL/L (135-145); TOTAL PROTEIN 7.2 GM/DL (6.4-8.2); TRIGLYCERIDES 210 MG/DL (<150); VLDL CHOLESTEROL 42 MG/DL (5-40)
== END ==
LOC: LAB 10:39
PROVIDERS: ATTEND Nurse Practitioner Family
DX: I10 Essential (primary) hypertension (principal); E78.5 Hyperlipidemia, unspecified; E55.9 Vitamin D deficiency, unspecified
CPT/HCPCS: 36415; 80053; 80061; 82306; 84443; 85025

== ENCOUNTER → 2020-12-13 | Outpatient (CLI) | payer MEDICARE, OTHER ==
[~2020-12-13] MED LIST changes: -ALEN70TA69 PO; +ALEN70TA80 PO; -CYAN500T62 PO; +CYAN500T8 PO; +DENOSUMAB 60 MG/1 ML (PROLIA) SQ NR; -MONT10TA26 PO; +MONT10TA97 PO
[2020-12-13 11:07] VITALS: BP 118/74
== END ==
LOC: SDC 10:51
PROVIDERS: ATTEND Family Medicine
DX: M81.0 Age-related osteoporosis without current pathological fracture (principal)
CPT/HCPCS: 96372

== ENCOUNTER → 2020-12-15 | Outpatient (CLI) | payer MEDICARE ==
[~2020-12-15] MED LIST changes: -DENOSUMAB 60 MG/1 ML (PROLIA) SQ NR
[2020-12-15 11:02] LABS: BASOPHILS # (AUTO) 0.1 10^3/uL (0.0-0.1); BASOPHILS % (AUTO) 1 % (0-10); EOSINOPHILS # (AUTO) 0.2 10^3/uL (0.0-0.3); EOSINOPHILS % (AUTO) 3 % (0-10); HEMATOCRIT 36 % (35-52); HEMOGLOBIN 12.2 g/dL (11.5-16.0); LYMPHOCYTES # (AUTO) 2.3 10^3/uL (1.0-4.0); LYMPHOCYTES % (AUTO) 40 % (12-44); MEAN CORPUSCULAR HEMOGLOBIN 29 pg (25-34); MEAN CORPUSCULAR HGB CONC 34 g/dL (32-36); MEAN CORPUSCULAR VOLUME 87 fL (80-99); MEAN PLATELET VOLUME 9.7 fL (9.0-12.2); MONOCYTES # (AUTO) 0.6 10^3/uL (0.0-1.0); MONOCYTES % (AUTO) 10 % (0-12); NEUTROPHILS # (AUTO) 2.6 10^3/uL (1.8-7.8); NEUTROPHILS % (AUTO) 45 % (42-75); PLATELET COUNT 191 10^3/uL (130-400); WHITE BLOOD COUNT 5.8 10^3/uL (4.3-11.0)
[2020-12-15 11:25] LABS: ALANINE AMINOTRANSFERASE 23 U/L (0-55); ALBUMIN 4.1 GM/DL (3.2-4.5); ALKALINE PHOSPHATASE 53 U/L (40-136); BILIRUBIN,TOTAL 1.1 MG/DL (0.1-1.0); BUN/CREATININE RATIO 18; CALCIUM 9.5 MG/DL (8.5-10.1); CARBON DIOXIDE 22 MMOL/L (21-32); CHLORIDE 107 MMOL/L (98-107); CHOLESTEROL 172 MG/DL (< 200); CREATININE SERUM 0.87 MG/DL (0.60-1.30); GFR ESTIMATED > 60; GLUCOSE 107 MG/DL (70-105); HDL CHOLESTEROL 46 MG/DL (40-60); POTASSIUM 3.6 MMOL/L (3.6-5.0); SODIUM 140 MMOL/L (135-145); TOTAL PROTEIN 6.7 GM/DL (6.4-8.2); TRIGLYCERIDES 120 MG/DL (<150); VLDL CHOLESTEROL 24 MG/DL (5-40)
[2020-12-15 11:46] LABS: FREE T4 (FREE THYROXINE) 0.96 NG/DL (0.70-1.48)
--- NOTE | 2020-12-15 14:28 | Diagnostic Imaging Report ---
INDICATION: Routine screening. Comparison is made prior mammogram 12/14/2019 and 08/20/2017. 2-D and 3-D bilateral screening mammography was performed with CAD. Scattered fibroglandular densities are identified bilaterally. There are benign calcifications bilaterally. No mass or malignant appearing microcalcifications are seen. Axillae are unremarkable. IMPRESSION: BI-RADS Category 2 No mammographic features suspicious for malignancy are identified. ACR BI-RADS Category 2: Benign findings. Result letter will be mailed to the patient. Note: At least 10% of breast cancer is not imaged by mammography. Dictated by: Dictated on workstation # [id number]
== END ==
LOC: RAD 10:31
PROVIDERS: ATTEND Family Medicine
DX: Z12.31 Encounter for screening mammogram for malignant neoplasm of breast (principal)
CPT/HCPCS: 36415; 77063; 77067; 80053; 80061; 84439; 84443; 85025

== ENCOUNTER → 2020-12-26 | Outpatient (CLI) | payer MEDICARE ==
[~2020-12-26] MED LIST changes: +CATHETER FLUSH 10 ML SYR IV PRN; +HOLD METFORMIN - RECEIVED CONTRAST 20 ML VIAL IV SCH; +IOHEXOL 350 MG/ML 100 ML (OMNIPAQUE 350) VIAL IV ONE; +NS 100 ML (IVPB) BAG IV ONE
--- NOTE | 2020-12-26 16:05 | Diagnostic Imaging Report ---
CT CHEST W TECHNIQUE: Multiple contiguous axial images were obtained through the chest with the use of intravenous contrast. All CT scans use one or more of the following dose optimizing techniques: automated exposure control, MA and/or KvP adjustment based on a patient size and exam type, or iterative reconstruction. INDICATION: Cough COMPARISON: CT anterior chest of 12/17/2017 FINDINGS: Lungs and airway: No endoluminal nodule within the trachea. No pulmonary mass or consolidation. No pulmonary nodules have developed that would be suspicious for clinically active lung cancer. Thin linear parenchymal band in the left lower lobe along the hemidiaphragm is likely due to scarring. Pleura: No pleural effusion or pneumothorax. Heart and mediastinum: Thyroid is normal. No supraclavicular or axillary lymphadenopathy. No mediastinal, hilar or juxtaphrenic lymphadenopathy. Small pericardial effusion is unchanged. Small sliding-type hiatal hernia. Normal caliber thoracic aorta. Upper abdomen: Cholecystectomy. No acute or concerning abnormality in the upper abdomen. Musculoskeletal: No lytic or blastic skeletal lesions. IMPRESSION: 1. Chronic small pericardial effusion is unchanged since 12/17/2017. 2. No new abnormality in the chest. Dictated by: Dictated on workstation # [id number]
== END ==
LOC: RAD 14:46
PROVIDERS: ATTEND Nurse Practitioner Family
DX: I31.3 Pericardial effusion (noninflammatory) (principal); R05 Cough
CPT/HCPCS: 71260

== ENCOUNTER 2021-01-17 12:55 | Emergency (ER) | payer MEDICARE ==
[~2021-01-17] VITALS: Ht 162.5 cm; Wt 71.2 kg
[~2021-01-17 12:55] MED LIST changes: -CATHETER FLUSH 10 ML SYR IV PRN; -HOLD METFORMIN - RECEIVED CONTRAST 20 ML VIAL IV SCH; -IOHEXOL 350 MG/ML 100 ML (OMNIPAQUE 350) VIAL IV ONE; +MONT10TA32 PO; -MONT10TA97 PO; -NS 100 ML (IVPB) BAG IV ONE
--- NOTE | 2021-01-17 13:18 | ED Upper Extremity ---
General Stated Complaint: FALL/RIGHT WRIST INJURY Source: patient Exam Limitations: no limitations History of Present Illness Date Seen by Provider: Jan 17, 2021 Time Seen by Provider: 13:17 Initial Comments To ER with reports of a fall while holding her grandchild and subsequently her right wrist struck the wall on the way down. This ocurred at 10 am.Has pain now only to the ulnar side of the wrist. Onset: just prior to arrival Severity: moderate Pain/Injury Location: right wrist Method of Injury: fell Modifying Factors: Worse With Movement Allergies and Home Medications Allergies Coded Allergies: fluticasone furoate (Verified Allergy, Mild, 12/03/18) BLISTERS IN MOUTH vilanterol (Verified Allergy, Mild, 12/03/18) BLISTERS IN MOUTH Home Medications Albuterol Sulfate 18 Gm Hfa.aer.ad, 2 PUFF INH Q4H PRN for SHORTNESS OF BREATH, (Reported) Amlodipine Besylate 5 Mg Tablet, 5 MG PO DAILY Prescribed by: FABIAN MAE on 12/27/17 1253 Aspirin 81 Mg Tablet.dr, 81 MG PO DAILY, (Reported) Budesonide/Formoterol Fumarate 10.2 Gm Hfa.aer.ad, 2 PUFF INH BID, (Reported) Calcium Carbonate/Vitamin D3 1 Each Tablet, 1 TAB PO HS, (Reported) Cholecalciferol (Vitamin D3) 1,000 Unit Capsule, 1,000 UNIT PO TID, (Reported) Cyanocobalamin (Vitamin B-12) 500 Mcg Tablet, 500 MCG PO DAILY, (Reported) Fish Oil/Dha/Epa 1 Each Capsule, 1 EACH PO DAILY, (Reported) Ipratropium/Albuterol Sulfate 3 Ml Ampul.neb, 3 ML IH RTQ4HR Prescribed by: FABIAN MAE on 12/27/17 1253 Latanoprost 2.5 Ml Drops, 1 DROP OU HS, (Reported) Levobunolol HCl 5 Ml Drops, 1 DROP OU DAILY, (Reported) Melatonin 10 Mg Tablet, 10 MG PO HS, (Reported) Montelukast Sodium 10 Mg Tablet, 10 MG PO HS, (Reported) Pravastatin Sodium 20 Mg Tablet, 20 MG PO HS, (Reported) Patient Home Medication List Home Medication List Reviewed: Yes Review of Systems Constitutional: see HPI EENTM: see HPI Respiratory: no symptoms reported Cardiovascular: no symptoms reported Genitourinary: no symptoms reported Musculoskeletal: see HPI Skin: no symptoms reported Psychiatric/Neurological: No Symptoms Reported Past Nuzkohb-Agwflh-Ttrkjl Hx Immunizations Up To Date Date of Pneumonia Vaccine: Aug 23, 2017 Date of Influenza Vaccine: Aug 23, 2017 Seasonal Allergies Seasonal Allergies: Yes Past Medical History Surgeries: Yes (gb surgery ) Respiratory: No Cardiac: Yes Neurological: No Genitourinary: No Gastrointestinal: Yes Gastroesophageal Reflux Musculoskeletal: Yes Fibromyalgia Endocrine: No HEENT: No Cancer: No Psychosocial: No Integumentary: No Blood Disorders: No Physical Exam Vital Signs Vital Signs - First Documented 01/17/21 13:15 Temp 36.8 Pulse 84 Resp 20 B/P (MAP) 151/106 (121) Pulse Ox 93 O2 Delivery Room Air Capillary Refill : Height, Weight, BMI Height: 5'4.00" Weight: 160lbs. 0.0oz. [id number]; 24.0 BMI Method: General Appearance: WD/WN, no apparent distress HEENT: PERRL/EOMI, normal ENT inspection Respiratory: no respiratory distress, no accessory muscle use Shoulder: normal inspection, non-tender Elbow/Forearm: normal inspection, non-tender Wrist: Yes pain, Yes soft tissue tenderness, Yes swelling Hand: normal inspection, non-tender Neurologic/Psychiatric: alert, normal mood/affect, oriented x 3 Progress/Results/Core Measures Results/Orders My Orders Orders - ERNESTO CONLEY APRN Wrist, Right, 3 Views Or More (01/17/21 13:30) Vital Signs/I&O 01/17/21 13:15 Temp 36.8 Pulse 84 Resp 20 B/P (MAP) 151/106 (121) Pulse Ox 93 O2 Delivery Room Air Departure Impression Primary Impression: Contusion of wrist Disposition: HOME, SELF-CARE Condition: Stable Departure-Patient Inst. Decision time for Depature: 13:57 Referrals: FABIAN MAE DO (PCP/Family) Primary Care Physician Patient Instructions: Wrist Sprain (DC) Add. Discharge Instructions: The splint as needed for comfort. Elevate the wrist. Tylenol and ibuprofen for pain control. Follow-up with your doctor later this week for recheck. ERNESTO CONLEY APRN Jan 17, 2021 13:18
--- NOTE | 2021-01-17 13:50 | Diagnostic Imaging Report ---
INDICATION: Fall with right wrist pain. TECHNIQUE: AP, oblique, and lateral views of the right wrist are obtained. FINDINGS: No fracture or acute bony abnormality is seen. There is underlying degenerative change throughout the carpal bones. IMPRESSION: No acute abnormality in the right wrist. Dictated by: Dictated on workstation # [id number]
[2021-01-17 14:05] VITALS: BP 126/82
== END 2021-01-17 14:05 | disposition home or self-care (01) ==
LOC: EDUNIT# 12:55 → ER 12:58
DX: S60.211A Contusion of right wrist, initial encounter (principal); Z88.8 Allergy status to other drugs, medicaments and biological substances; Z79.82 Long term (current) use of aspirin; W22.01XA Walked into wall, initial encounter
CPT/HCPCS: 73110

== ENCOUNTER 2021-03-10 07:22 | Day surgery (SDC) | payer MEDICARE ==
[2021-03-10] VITALS (10 sets, daily range): BP systolic 109–138; BP diastolic 68–87
[~2021-03-10] VITALS: Ht 162 cm; Wt 70.0 kg
[~2021-03-10 07:22] MED LIST changes: +HEParin (CATH LAB) 2,000 ML IV ONE; +LIDOCAINE 1% INJ 20 ML 20 ML VIAL ONE
[2021-03-10] MEDS ORDERED: NS IV 1000 ML 1,000 ML IV SCH ×2 (07:30→09:00)
[2021-03-10 07:56] LABS: HEMOGLOBIN 12.8 g/dL (11.5-16.0); MEAN PLATELET VOLUME 9.8 fL (9.0-12.2); WHITE BLOOD COUNT 6.9 10^3/uL (4.3-11.0)
[2021-03-10] MEDS ORDERED: MIDAZOLAM 5 MG/5 ML (VERSED) VIAL ONE (07:57)
[2021-03-10] MEDS ORDERED: fentaNYL INJ 100 MCG/2 ML AMP ONE (07:57)
[2021-03-10 08:11] LABS: INR 0.9 (0.8-1.4)
[2021-03-10 08:18] LABS: ALANINE AMINOTRANSFERASE 42 U/L (0-55); ALBUMIN 4.2 GM/DL (3.2-4.5); ALKALINE PHOSPHATASE 54 U/L (40-136); BILIRUBIN,TOTAL 0.9 MG/DL (0.1-1.0); BUN/CREATININE RATIO 13; CALCIUM 10.3 MG/DL (8.5-10.1); CARBON DIOXIDE 24 MMOL/L (21-32); CHLORIDE 104 MMOL/L (98-107); CHOLESTEROL 178 MG/DL (< 200); GFR ESTIMATED > 60; GLUCOSE 102 MG/DL (70-105); HDL CHOLESTEROL 39 MG/DL (40-60); POTASSIUM 3.3 MMOL/L (3.6-5.0); SODIUM 140 MMOL/L (135-145); TOTAL PROTEIN 7.2 GM/DL (6.4-8.2); TRIGLYCERIDES 177 MG/DL (<150); VLDL CHOLESTEROL 35 MG/DL (5-40)
--- NOTE | 2021-03-10 08:46 | Cardiac Procedure Note-CS/ASA ---
Pre-Procedure Note Pre-Op Procedure Note H&P Reviewed The H&P was reviewed, patient examined and no changes noted. Date H&P Reviewed: Mar 10, 2021 Time H&P Reviewed: 08:20 Conscious Sedation Pre-Proced Time 08:20 ASA Score 3 For ASA 3 and 4: Consider anesthesia and medical clearance. Also, for patients with a history of failed moderate sedation consider anesthesia. Airway Lungs Heart ASA score ASA 1: a normal healthy patient ASA 2: a patient with a mild systemic disease (mid diabetes, controlled hypertension, obesity ASA 3: a patient with a severe systemic disease that limits activity (angina, COPD, prior Myocardial infarction) ASA 4: a patient with an incapacitating disease that is a constant threat to life (CHF, renal failure) ASA 5: a moribund patient not expected to survive 24 hrs. (ruptured aneurysm) ASA 6: a declared brain- patient whose organs are being harvested. For emergent operations, add the letter E after the classification Mallampati Classification Grade 2 Sedation Plan Analgesia, Amnesia, Plan communicated to team members, Discussed options with patient/fam, Discussed risks with patient/fam The patient is an appropriate candidate to undergo the planned procedure, sedation, and anesthesia. The patient immediately re-assessed prior to indication. MORRIS WOODS MD FACP FAC CCDS Mar 10, 2021 08:46
--- NOTE | 2021-03-10 08:51 | Discharge Inst-Post CATH ---
Discharge Inst-CATH/EP Post Cardiac Cath/EP D/C Inst Follow Up/Plan F/u with Dr Ramsey in 2 weeks ACTIVITY * Go Home directly and rest. * Limit activity of the leg (or wrist if it was used) for 7 days including aerobics, swimming, jogging, bicycling, etc. * Restrict stair-climbing for 7 days if possible, if not, climb up with your n on-cath leg, then bring together on the same step. * Avoid lifting, pushing, pulling or excessive movement of the affected ex tremity for 7 days. * Customary sexual activity may be resumed after 2 days-use caution not to use a position that strains or causes pain to the affected extremity. * No driving for 24 hours. * NO SMOKING. * Avoid straining for bowel movements for 7 days. * Gentle walking on level ground is allowed. * Returning to work will depend on the type of procedure and the results. Your doctor will discuss this with you. CALL YOUR DOCTOR FOR ANY OF THE FOLLOWING: *If bleeding from the puncture site occurs- Apply gentle pressure to site with clean cloth and call your doctor or EMS. * If a knot or lump forms under the skin, increases in size, or causes pain. * If bruising appears to be worsening or moving further down your leg instead of disappearing. * Temperature above 101 F. CARE OF YOUR GROIN INCISION; * Bruising or purple discoloration of the skin near the puncture site is common. * You may shower only, no bathtub bathing for 5 days. Be careful to avoid slipping as your leg may feel stiff. * If a closure device was used on your femoral artery, please see the attached guide regarding care of the device and your leg. * Leave dressing on FOR 24 hours. CARE OF YOUR WRIST INCISION; * Bruising or purple discoloration of the skin near the puncture site is common. * You may shower. * DO NOT submerge wrist. * Leave dressing on FOR 24 hours. MORRIS RAMSEY MD FACP [facility]AC CCDS Mar 10, 2021 08:51
--- NOTE | 2021-03-10 08:52 | Discharge Inst-Cardiology ---
Discharge Inst-Cardiac Discharge Medications Continued Medications: Albuterol Sulfate (Ventolin Hfa) 18 Gm Hfa.aer.ad 2 PUFF INH Q4H PRN for SHORTNESS OF BREATH, INHALER Amlodipine Besylate (Amlodipine Besylate) 5 Mg Tablet 5 MG PO DAILY for Blood Pressure, #30 TAB Aspirin (Aspirin EC) 81 Mg Tablet.dr 81 MG PO DAILY, TAB Budesonide/Formoterol Fumarate (Symbicort 160-4.5 Mcg Inhaler) 10.2 Gm Hfa.ae r.ad 2 PUFF INH BID, INHALER Calcium Carbonate/Vitamin D3 (Calcium 600 + Vit D 200 Tablet) 1 Each Tablet 1 TAB PO HS, TAB Cholecalciferol (Vitamin D3) (Vitamin D3) 1,000 Unit Capsule 1000 UNIT PO TID, CAP Fish Oil/Dha/Epa (Fish Oil 1,200 mg Fish Oil) 1 Each Capsule 1 EACH PO DAILY, CAP Ipratropium/Albuterol Sulfate (Iprat-Albut 0.5-3(2.5) mg/3 ml) 3 Ml Ampul.neb 3 ML IH RTQ4HR, #100 VIAL Latanoprost (Latanoprost) 2.5 Ml Drops 1 DROP OU HS, EA Levobunolol HCl (Levobunolol HCl) 5 Ml Drops 1 DROP OU DAILY, EA Melatonin (Melatonin) 10 Mg Tablet 10 MG PO HS, TAB Montelukast Sodium (Montelukast Sodium) 10 Mg Tablet 10 MG PO HS, TAB Pravastatin Sodium (Pravastatin Sodium) 20 Mg Tablet 20 MG PO HS, TAB [Xyzal] () Unknown Strength Unknown Dose MORRIS WOODS MD FACP [facility]S Mar 10, 2021 08:52
[2021-03-10] MEDS ORDERED: PATIENT MAY USE OWN MEDS, ALL PO SCH (09:00)
--- NOTE | 2021-03-10 13:43 | CARDIAC CATHETERIZATION ---
DATE OF SERVICE: 03/10/2021 CARDIAC CATHETERIZATION REPORT The patient is a 70-year-old lady, who has multiple coronary artery disease risk factors and who has been experiencing chest discomfort that is consistent with new onset, unstable angina. Cardiac catheterization was carried out today after having obtained an informed consent. DESCRIPTION OF PROCEDURE: She was brought to the cardiac catheterization laboratory in a fasting state. Right groin was prepared and draped in the usual sterile fashion. Lidocaine 1% was used for local anesthesia. Modified Seldinger technique was used to advance a 5-Mozambican sheath into the right femoral artery. A 5-Mozambican JL4 catheter was used for left coronary angiography. A 5-Mozambican JR4 catheter was used for right coronary angiography. A 5-Mozambican pigtail catheter was used for left heart catheterization and left ventricular angiography. At the end of the procedure, following removal of diagnostic catheters, angiography of the right femoral artery was carried out through the sheath. The site of sheath insertion was not suitable for closure with Mynx. Manual pressure was used to achieve hemostasis. She tolerated the procedure well. HEMODYNAMICS: Left ventricular end-diastolic pressure following coronary angiography was 11 mmHg. There was no significant pressure gradient on pullback across the aortic valve. Ascending aortic pressure was 104/57 with a mean of 81 mmHg. CORONARY ANGIOGRAPHY: Left main coronary artery is free of significant disease. Left anterior descending artery has minimal plaques. Left circumflex artery is dominant and has minimal plaques. Right coronary artery is small and nondominant and does not exhibit significant disease. LEFT VENTRICULAR ANGIOGRAPHY: Left ventricular angiography was carried out in the right anterior oblique projection. Global left ventricular systolic function normal. No regional wall motion abnormalities seen. Left ventricular ejection fraction is approximately 60%. CONCLUSIONS: 1. Angiographically minimal coronary artery disease. 2. Normal global left ventricular systolic function with ejection fraction of 60% to 65%. 3. Normal left ventricular end-diastolic pressure. DISCUSSION AND RECOMMENDATIONS: Based on the results of the study, chest discomfort does not appear to be of coronary origin. Continuing risk factor modification is advised. Outpatient followup is advised. Job ID: [id number] DocumentID: [id number] Dictated Date: 03/10/2021 08:57:07 Deposit Refund Clerk Date: 03/10/2021 13:43:00 Dictated By: MORRIS WOODS MD, MA, FACP, FACC,
== END 2021-03-10 11:45 | disposition home or self-care (01) ==
LOC: CATH 07:22 → SDC 09:14 → CATH 11:45
PROVIDERS: ATTEND Internal Medicine Cardiovascular Disease
DX: R07.89 Other chest pain (principal); J44.9 Chronic obstructive pulmonary disease, unspecified; G47.33 Obstructive sleep apnea (adult) (pediatric); E78.2 Mixed hyperlipidemia; Z79.51 Long term (current) use of inhaled steroids; Z79.82 Long term (current) use of aspirin; Z79.899 Other long term (current) drug therapy; Z88.8 Allergy status to other drugs, medicaments and biological substances; Z90.710 Acquired absence of both cervix and uterus; Z90.49 Acquired absence of other specified parts of digestive tract
CPT/HCPCS: 80053; 80061; 85027; 85610; 85730; 87081; 93458; C1894; 36415

== ENCOUNTER → 2021-04-10 | Outpatient (CLI) | payer MEDICARE ==
[~2021-04-10] MED LIST changes: -HEParin (CATH LAB) 2,000 ML IV ONE; -LIDOCAINE 1% INJ 20 ML 20 ML VIAL ONE
== END ==
LOC: CARD 13:32
PROVIDERS: ATTEND Internal Medicine Cardiovascular Disease
DX: I36.1 Nonrheumatic tricuspid (valve) insufficiency (principal)
CPT/HCPCS: 93306

== ENCOUNTER 2021-05-26 10:54 | Outpatient (CLI) | payer MEDICARE ==
[~2021-05-26] VITALS: Ht 162.6 cm; Wt 68.4 kg
[2021-05-26 11:10] VITALS: BP 111/73
[2021-05-26 12:00] LABS: CALCIUM 10.3 MG/DL (8.5-10.1); CREATININE SERUM 1.03 MG/DL (0.60-1.30); POTASSIUM 3.6 MMOL/L (3.6-5.0)
[2021-05-26] MEDS ORDERED: DENOSUMAB 60 MG/1 ML (PROLIA) SQ SCH (12:00)
== END 2021-05-26 11:50 ==
LOC: SDC 10:54
PROVIDERS: ATTEND Family Medicine
DX: M81.0 Age-related osteoporosis without current pathological fracture (principal)
CPT/HCPCS: 36415; 80048; 96372

== ENCOUNTER → 2021-12-18 | Outpatient (CLI) | payer MEDICARE ==
[~2021-12-18] MED LIST changes: +MONT-40 PO; -MONT10TA32 PO
--- NOTE | 2021-12-18 12:55 | Diagnostic Imaging Report ---
INDICATION: Routine screening. Comparison is made with primary 12/15/2020 and 12/14/2019. 2-D and 3-D bilateral screening mammography was performed with CAD. Scattered fibroglandular densities are identified bilaterally. The parenchymal pattern is stable. No mass or malignant-appearing microcalcifications are seen. Occasional benign calcifications noted. Axillae are unremarkable. IMPRESSION: No mammographic features suspicious for malignancy are identified. BI-RADS Category 2 ACR BI-RADS Category 2: Benign findings. Result letter will be mailed to the patient. Note: At least 10% of breast cancer is not imaged by mammography. Dictated by: Dictated on workstation # [id number]
== END ==
LOC: RAD 10:08
PROVIDERS: ATTEND Family Medicine
DX: Z12.31 Encounter for screening mammogram for malignant neoplasm of breast (principal)
CPT/HCPCS: 77063; 77067

== ENCOUNTER → 2022-01-02 | Outpatient (CLI) | payer MEDICARE ==
[~2022-01-02] MED LIST changes: +CHOL500050 PO; +CIPR500T5 PO; +LATA2.5D19 OU; +LEVO5TAB28 PO; +TRZ50T PO
[2022-01-02 09:27] LABS: BASOPHILS # (AUTO) 0.1 10^3/uL (0.0-0.1); BASOPHILS % (AUTO) 1 % (0-10); EOSINOPHILS # (AUTO) 0.3 10^3/uL (0.0-0.3); EOSINOPHILS % (AUTO) 5 % (0-10); HEMATOCRIT 38 % (35-52); HEMOGLOBIN 12.4 g/dL (11.5-16.0); LYMPHOCYTES # (AUTO) 2.1 10^3/uL (1.0-4.0); LYMPHOCYTES % (AUTO) 37 % (12-44); MEAN CORPUSCULAR HEMOGLOBIN 29 pg (25-34); MEAN CORPUSCULAR HGB CONC 33 g/dL (32-36); MEAN CORPUSCULAR VOLUME 88 fL (80-99); MEAN PLATELET VOLUME 9.7 fL (9.0-12.2); MONOCYTES # (AUTO) 0.6 10^3/uL (0.0-1.0); MONOCYTES % (AUTO) 10 % (0-12); NEUTROPHILS # (AUTO) 2.6 10^3/uL (1.8-7.8); NEUTROPHILS % (AUTO) 47 % (42-75); PLATELET COUNT 198 10^3/uL (130-400); WHITE BLOOD COUNT 5.6 10^3/uL (4.3-11.0)
[2022-01-02 09:47] LABS: BILIRUBIN,TOTAL 0.9 MG/DL (0.1-1.0); CALCIUM 10.1 MG/DL (8.5-10.1); CREATININE SERUM 0.85 MG/DL (0.60-1.30); POTASSIUM 3.7 MMOL/L (3.6-5.0); TOTAL PROTEIN 6.9 GM/DL (6.4-8.2)
[2022-01-02 10:08] LABS: FREE T4 (FREE THYROXINE) 1.05 NG/DL (0.70-1.48)
--- NOTE | 2022-01-02 10:15 | Diagnostic Imaging Report ---
INDICATION: Postmenopausal state, M85.80 COMPARISON: 11/13/2018 FINDINGS: AP Spine L1-L4: [BMD (g/cm2): 0.802] [T-Score: -3.3] [Z-Score: -1.7] [BMD Previous: 0.853] [BMD % Change: -6.0] LT Hip Neck: [BMD (g/cm2): 0.712] [T-Score: -2.3] [Z-Score: -0.7] LT Hip Total: [BMD (g/cm2):0.805] [T-Score:-1.6] [Z-Score: -0.2] [BMD Previous: 0.885] [BMD % Change: -9.0] RT Hip Neck: [BMD (g/cm2):0.744] [T-Score:-2.1] [Z-Score:-0.5] RT Hip Total: [BMD (g/cm2):0.781] [T-score:-1.8] [Z-Score:-0.4] [BMD Previous:0.863] [BMD % Change:-9.5] *Indicates significant change from prior examination based on 95% confidence level. World Health Organization criteria for BMD interpretation classify patients as Normal (T-score at or above -1.0), Osteopenic (T-score between -1.0 and -2.5) or Osteoporotic (T-score at or below -2.5). LIMITATIONS AND MODIFICATION: None. FRACTURE RISK (FRAX SCORE): The ten year probability of (%): Major Osteoporotic Fracture: [21.7] Hip Fracture: [5.1] IMPRESSION: 1. Osteoporosis. 2. No significant change in bone mineral density since prior examination. 3. See below National Osteoporosis Foundation guidelines on when to potentially initiate pharmacologic therapy. Based on the National Osteoporosis Foundation Guidelines, pharmacologic treatment should be initiated in any of the following, unless clinical conditions suggest otherwise: * Any patient with prior fragility fracture of the hip or vertebrae. A spine fracture indicates 5X risk for subsequent spine fracture and 2X risk for subsequent hip fracture. * Osteoporosis (T-score <-2.5). * Postmenopausal women and men age 50 and older with low bone mass/osteopenia (T-score between -1.0 and -2.5) by DXA and 10-year major osteoporotic fracture greater than 20% or a 10-year probability of hip fracture greater than 3%. These fracture risks are supplied above in the FRAX score, if applicable. * Clinician judgement and/or patient preferences may indicate treatment for people with 10-year fracture probabilities above or below these levels. Dictated by: Dictated on workstation # [id number]
== END ==
LOC: RAD 08:45
PROVIDERS: ATTEND Family Medicine
DX: M81.0 Age-related osteoporosis without current pathological fracture (principal); E55.9 Vitamin D deficiency, unspecified; M85.80 Other specified disorders of bone density and structure, unspecified site; E78.5 Hyperlipidemia, unspecified; I10 Essential (primary) hypertension; Z78.0 Asymptomatic menopausal state
CPT/HCPCS: 36415; 77080; 80053; 80061; 82306; 84439; 84443; 85025

== ENCOUNTER 2022-01-04 23:34 | Inpatient (IN) | payer MEDICARE ==
[~2022-01-04] VITALS: Ht 162.5 cm; Wt 68.4 kg
[~2022-01-04 23:34] MED LIST changes: -CHOL500050 PO; -CIPR500T5 PO; -LATA2.5D19 OU; -LEVO5TAB28 PO; -TRZ50T PO
[2022-01-05 00:18] LABS: BASOPHILS % (AUTO) 0 % (0-10); EOSINOPHILS # (AUTO) 0.2 10^3/uL (0.0-0.3); EOSINOPHILS % (AUTO) 2 % (0-10); HEMATOCRIT 34 % (35-52); HEMOGLOBIN 11.2 g/dL (11.5-16.0); LYMPHOCYTES # (AUTO) 2.1 10^3/uL (1.0-4.0); LYMPHOCYTES % (AUTO) 22 % (12-44); MEAN CORPUSCULAR HEMOGLOBIN 29 pg (25-34); MEAN CORPUSCULAR HGB CONC 33 g/dL (32-36); MEAN CORPUSCULAR VOLUME 87 fL (80-99); MONOCYTES # (AUTO) 1.1 10^3/uL (0.0-1.0); MONOCYTES % (AUTO) 12 % (0-12); NEUTROPHILS # (AUTO) 6.1 10^3/uL (1.8-7.8); NEUTROPHILS % (AUTO) 64 % (42-75); PLATELET COUNT 180 10^3/uL (130-400); WHITE BLOOD COUNT 9.5 10^3/uL (4.3-11.0)
[2022-01-05 00:29] LABS: ALBUMIN 3.6 GM/DL (3.2-4.5); CHLORIDE 102 MMOL/L (98-107); POTASSIUM 3.3 MMOL/L (3.6-5.0); SODIUM 135 MMOL/L (135-145)
[2022-01-05 00:30] LABS: AMMONIA 26 UMOL/L (11-32); CALCIUM 9.7 MG/DL (8.5-10.1)
[2022-01-05 00:31] LABS: GLUCOSE 115 MG/DL (70-105); TOTAL PROTEIN 6.6 GM/DL (6.4-8.2)
[2022-01-05 00:32] LABS: CARBON DIOXIDE 22 MMOL/L (21-32)
[2022-01-05 00:33] LABS: BILIRUBIN,TOTAL 1.4 MG/DL (0.1-1.0)
[2022-01-05 00:35] LABS: ALKALINE PHOSPHATASE 67 U/L (40-136); CREATININE SERUM 1.11 MG/DL (0.60-1.30); GFR ESTIMATED 53
[2022-01-05 00:36] LABS: BUN/CREATININE RATIO 20
[2022-01-05 00:37] LABS: FIBRIN DEGRADATION PRODUCTS 1.91 UG/ML (0.00-0.49)
[2022-01-05 00:38] LABS: ALANINE AMINOTRANSFERASE 48 U/L (0-55)
[2022-01-05 00:42] LABS: BILIRUBIN,URINE NEGATIVE (NEGATIVE); CLARITY,URINE CLEAR; COLOR,URINE YELLOW; GLUCOSE, URINE (UA) NEGATIVE (NEGATIVE); KETONES,URINE NEGATIVE (NEGATIVE); LEUKOCYTE ESTERASE ,URINE 2+ (NEGATIVE); NITRITE,URINE NEGATIVE (NEGATIVE); PROTEIN,URINE NEGATIVE (NEGATIVE)
[2022-01-05 00:53] LABS: BACTERIA,URINE NEGATIVE /HPF; SQUAMOUS EPITHELIAL CELL,UR 0-2 /HPF; WBC,URINE 0-2 /HPF
[2022-01-05] MEDS ORDERED: NS 100 ML (IVPB) BAG IV ONE (02:15)
[2022-01-05] MEDS ORDERED: HOLD METFORMIN - RECEIVED CONTRAST 20 ML VIAL IV SCH (02:15)
[2022-01-05] MEDS ORDERED: IOHEXOL 350 MG/ML 100 ML (OMNIPAQUE 350) VIAL IV ONE (02:15)
[2022-01-05 03:02] LABS: ABG BASE EXCESS 2.6 MMOL/L (-2.5-2.5); ABG OXYGEN SATURATION 85 % (94-100); ABG PCO2 47 MMHG (35-45); ABG PH 7.38 (7.37-7.43); ABG PO2 53 MMHG (79-93); ABG TCO2 28.7 MMOL/L (21.0-31.0)
[2022-01-05 03:06] LABS: ALLENS TEST YES-POS; INSPIRED O2 1L; PATIENT TEMP 36.8; VENTILATOR NO
[2022-01-05] MEDS ORDERED: LACTATED RINGERS 1,000 ML IV ONE (03:30)
--- NOTE | 2022-01-05 05:08 | ED Neurological Problem ---
General Chief Complaint: Neuro-Stroke Like Symptoms Stated Complaint: WEAK,SHAKEY,POSS AMS,COPD Nursing Triage Note: TO ED VIA POV AND W/C TO ROOM 6. PER PT HAS BEEN WEEK SINCE Saturday01/03/22 AND TONIGHT NOTICED TROUBLE GETTING THOUGHTS AND WORDS OUT AND SLURRED SPEECH AT TIMES SINCE APPROX 1700. PT STATES SHE HAD RIGHT SIDED PAIN THAT STARTED SATURDAY WHEN SHE STARTED NOT FEELING WELL. Source: patient, family Exam Limitations: no limitations History of Present Illness Date Seen by Provider: Jan 04, 2022 Time Seen by Provider: 23:40 Initial Comments This is 71-year-old woman presents to the emergency room with a couple of days of progressive weakness. Her reports she has not been able to independently take the stairs which is unusual for her. She also has developed slurring of her speech and inability to completely express thoughts verbally. Her speech often trails off at the end of statements into nonsensical words or slurred speech. She reports having a right flank pain a couple days ago that has since resolved. Although she has not been feeling well for couple of days. The speech abnormalities seem to have abruptly started between 1600 and 1700. She was unsteady ambulating and required assistance getting from the wheelchair to the bed. reports she has not been eating or drinking much over the past few days. Patient also seems to have an appropriate laughter during interview. Allergies and Home Medications Allergies Coded Allergies: fluticasone furoate (Verified Allergy, Mild, 12/03/18) BLISTERS IN MOUTH vilanterol (Verified Allergy, Mild, 12/03/18) BLISTERS IN MOUTH Patient Home Medication List Home Medication List Reviewed: Yes Albuterol Sulfate (Ventolin Hfa) 18 Gm Hfa.aer.ad, 2 PUFF INH Q4H PRN for SHORTNESS OF BREATH, (Reported) Entered as Reported by: MARIBEL DILLON on 12/24/17 1237 Amlodipine Besylate (Amlodipine Besylate) 5 Mg Tablet, 5 MG PO DAILY Prescribed by: FABIAN ENGLISH on 12/27/17 1253 Aspirin (Aspirin EC) 81 Mg Tablet.dr, 81 MG PO DAILY, (Reported) Entered as Reported by: MARIBEL DILLON on 12/24/17 1237 Budesonide/Formoterol Fumarate (Symbicort 160-4.5 Mcg Inhaler) 10.2 Gm Hfa.aer.ad, 2 PUFF INH BID, (Reported) Entered as Reported by: MARIBEL DILLON on 12/24/17 1237 Calcium Carbonate/Vitamin D3 (Calcium 600 + Vit D 200 Tablet) 1 Each Tablet, 1 TAB PO HS, (Reported) Entered as Reported by: BETHANY RICHEY on 07/30/16 1550 Cholecalciferol (Vitamin D3) (Vitamin D3) 1,000 Unit Capsule, 1,000 UNIT PO TID, (Reported) Entered as Reported by: ROSIBEL OSORIO on 12/03/181922 Fish Oil/Dha/Epa (Fish Oil 1,200 mg Fish Oil) 1 Each Capsule, 1 EACH PO DAILY, (Reported) Entered as Reported by: ROSIBEL OSORIO on 12/03/181922 Ipratropium/Albuterol Sulfate (Iprat-Albut 0.5-3(2.5) mg/3 ml) 3 Ml Ampul.neb, 3 ML IH RTQ4HR Prescribed by: FABIAN ENGLISH on 12/27/17 1253 Latanoprost (Latanoprost) 2.5 Ml Drops, 1 DROP OU HS, (Reported) Entered as Reported by: MARIBEL DILLON on 12/24/17 123 Levobunolol HCl (Levobunolol HCl) 5 Ml Drops, 1 DROP OU DAILY, (Reported) Entered as Reported by: BETHANY RICHEY on 07/30/16 155 Melatonin (Melatonin) 10 Mg Tablet, 10 MG PO HS, (Reported) Entered as Reported by: MARIBEL DILLON on 12/24/17 123 Montelukast Sodium (Montelukast Sodium) 10 Mg Tablet, 10 MG PO HS, (Reported) Entered as Reported by: MARIBEL DILLON on 12/24/17 1237 Pravastatin Sodium (Pravastatin Sodium) 20 Mg Tablet, 20 MG PO HS, (Reported) Entered as Reported by: BETHANY RICHEY on 07/30/16 1550 [Xyzal] Unknown Strength , Unknown Dose, (Reported) Entered as Reported by: ROSIBEL OSORIO on 12/03/181922 Review of Systems Review of Systems Constitutional: see HPI Eyes: No Symptoms Reported Ears, Nose, Mouth, Throat: no symptoms reported Respiratory: no symptoms reported Cardiovascular: no symptoms reported Gastrointestinal: see HPI Genitourinary: no symptoms reported : No Musculoskeletal: no symptoms reported Skin: no symptoms reported Psychiatric/Neurological: See HPI Endocrine: No Symptoms Reported Hematologic/Lymphatic: No Symptoms Reported Past [id number] Hx Patient Social History Tobacco Use?: No Substance use?: No Alcohol Use?: No Immunizations Up To Date Tetanus Booster (TDap): Unknown Influenza Vaccine Up-to-Date: Yes; Up-to-Date 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 BOOSTER Seasonal Allergies Seasonal Allergies: Yes Past Medical History Surgery/Hospitalization HX: HEREDITARY COPD O2 PRN FIBROMYALGIA Surgeries: Yes (gb surgery ) Gallbladder, Hysterectomy Respiratory: No Sleep Apnea, COPD Currently Using CPAP: Yes Cardiac: No Neurological: No Genitourinary: No Gastrointestinal: Yes Gastroesophageal Reflux Musculoskeletal: Yes Fibromyalgia Endocrine: No HEENT: No Cancer: No Psychosocial: No Integumentary: No Blood Disorders: No Physical Exam Vital Signs Vital Signs - First Documented 01/04/22 01/05/22 23:52 01:00 Temp 36.8 Pulse 79 Resp 16 B/P (MAP) 114/66 (82) Pulse Ox 92 O2 Delivery Room Air O2 Flow Rate 2.00 Capillary Refill : Less Than 3 Seconds Height, Weight, BMI Height: 5'4.00" Weight: 160lbs. 0.0oz. [id number]; 25.87 BMI Method: General Appearance: WD/WN, no apparent distress HEENT: PERRL/EOMI, normal ENT inspection, pharynx normal Neck: normal inspection Respiratory: lungs clear, normal breath sounds, no respiratory distress, no accessory muscle use Cardiovascular: regular rate, rhythm, no edema, no murmur Gastrointestinal: normal bowel sounds, non tender, soft Extremities: normal inspection, no pedal edema Neurologic/Psychiatric: no motor/sensory deficits, alert, motor weakness (Generalized), other (Dysarthria and dysphagia with possibly some mild confusion.) Crainal Nerves: normal hearing, abnormal speech Coordination/Gait: abnormal gait Motor/Sensory: no sensory deficit Skin: normal color, warm/dry Stroke Onset of Symptoms Date of Onset of Symptoms: Jan 04, 2022 Time of Symptom Onset: 16:00 Onset of Symptoms: Yes NIH Stroke Scale Assessment Level of Consciousness: 0=Alert (0), Level of Consciousness-Questions: 0=Answers both month/age (0), LOC Commands: 0=Performs both tasks (0), Visual Sun: 1=Partial hemianopia (1), Facial Movement (Facial Paresis): 0=Normal symmetrical mnt (0), Motor Function-Arms Right: 0=No drift (0), Motor Function-Arms Left: 0=No drift (0), Motor Function-Legs Right: 0=No drift (0), Motor Function-Legs Left: 0=No drift (0), Limb Ataxia: 0=Absent (0), Sensory: 0=Normal:no loss (0), Best Language: 1=Mild to moderat aphasia (1), Dysarthria: 1=Mild to moderate loss (1), Extinction & Inattention: 0=No abnormality (0), Total: 3 Stroke Thrombolytic Exclusion Age 18 or Over: Yes Acute intenal hemorrhage: No History of CVA: No Uncontrolled Coagulation Defec: No Intracranial Hemorrhage: No Severe Hypertension: No GI or Bleed: No Subarachnoid Hemorrhage: No Intracranial Neoplasm/Aneurysm: No Oral Anticoagulants: No Surgery or Trauma: No Puncture of Non-Compressible V: No Recent CPR: No Diabetic Hemorrhagic Retinopat: No Organ Biopsy: No Recent Obstetric Delivery: No Glucose: No Significant Hepatic Dysfunctio: No NIH Stoke Scale >22: No Bacterial Endocarditis: No Pericarditis: No Improving Symptoms: No Platelets: No TPA Contraindication: No IV - TPa Received IV - TPa Procedure Performed?: No (Patient was not a candidate for tenecteplase due to greater than 4.5 hours from last known well time.) Progress/Results/Core Measures Results/Orders Lab Results Laboratory Tests Test 01/05/22 00:04 01/05/22 00:08 01/05/22 00:13 01/05/22 00:35 Range/Units White Blood Count 9.5 4.3-11.0 10^3/uL Red Blood Count 3.89 3.80-5.11 10^6/uL Hemoglobin 11.2 L 11.5-16.0 g/dL Hematocrit 34 L 35-52 % Mean Corpuscular Volume 87 80-99 fL Mean Corpuscular Hemoglobin 29 25-34 pg Mean Corpuscular Hemoglobin Concent 33 32-36 g/dL Red Cell Distribution Width 13.4 10.0-14.5 % Platelet Count 180 130-400 10^3/uL Mean Platelet Volume 10.0 9.0-12.2 fL Immature Granulocyte % (Auto) 0 % Neutrophils (%) (Auto) 64 42-75 % Lymphocytes (%) (Auto) 22 12-44 % Monocytes (%) (Auto) 12 0-12 % Eosinophils (%) (Auto) 2 0-10 % Basophils (%) (Auto) 0 0-10 % Neutrophils # (Auto) 6.1 1.8-7.8 10^3/uL Lymphocytes # (Auto) 2.1 1.0-4.0 10^3/uL Monocytes # (Auto) 1.1 H 0.0-1.0 10^3/uL Eosinophils # (Auto) 0.2 0.0-0.3 10^3/uL Basophils # (Auto) 0.0 0.0-0.1 10^3/uL Immature Granulocyte # (Auto) 0.0 0.0-0.1 10^3/uL Prothrombin Time 14.0 12.2-14.7 SEC INR Comment 1.0 0.8-1.4 Activated Partial Thromboplast Time 36 H 24-35 SEC D-Dimer 1.91 H 0.00-0.49 UG/ML Sodium Level 135 135-145 MMOL/L Potassium Level 3.3 L 3.6-5.0 MMOL/L Chloride Level 102 98-107 MMOL/L Carbon Dioxide Level 22 21-32 MMOL/L Anion Gap 11 5-14 MMOL/L Blood Urea Nitrogen 22 H 7-18 MG/DL Creatinine 1.11 0.60-1.30 MG/DL Estimat Glomerular Filtration Rate 53 BUN/Creatinine Ratio 20 Glucose Level 115 H 70-105 MG/DL Calcium Level 9.7 8.5-10.1 MG/DL Corrected Calcium 10.0 8.5-10.1 MG/DL Total Bilirubin 1.4 H 0.1-1.0 MG/DL Aspartate Amino Transf (AST/SGOT) 39 H 5-34 U/L Alanine Aminotransferase (ALT/SGPT) 48 0-55 U/L Alkaline Phosphatase 67 40-136 U/L Ammonia 26 11-32 UMOL/L Troponin I < 0.028 <0.028 NG/ML C-Reactive Protein High Sensitivity 7.69 H 0.00-0.50 MG/DL Total Protein 6.6 6.4-8.2 GM/DL Albumin 3.6 3.2-4.5 GM/DL TSH [place] Testing 1.03 0.35-4.94 UIU/ML Influenza Type A (RT-PCR) Not Detected Not Detecte Influenza Type B (RT-PCR) Not Detected Not Detecte SARS-CoV-2 RNA (RT-PCR) Not Detected Not Detecte Glucometer 115 H 70-110 MG/DL Urine Color YELLOW Urine Clarity CLEAR Urine pH 6.0 5-9 Urine Specific [place] 1.010 L 1.016-1.022 Urine Protein NEGATIVE NEGATIVE Urine Glucose (UA) NEGATIVE NEGATIVE Urine Ketones NEGATIVE NEGATIVE Urine Nitrite NEGATIVE NEGATIVE Urine Bilirubin NEGATIVE NEGATIVE Urine Urobilinogen 0.2 < = 1.0 MG/DL Urine Leukocyte Esterase 2+ H NEGATIVE Urine RBC (Auto) NEGATIVE NEGATIVE Urine RBC NONE /HPF Urine WBC 0-2 /HPF Urine Squamous Epithelial Cells 0-2 /HPF Urine Crystals NONE /LPF Urine Bacteria NEGATIVE /HPF Urine Casts NONE /LPF Urine Mucus SMALL H /LPF Urine Culture Indicated NO Test 01/05/22 02:55 Range/Units Blood Gas Puncture Site RIGHT RADIAL Blood Gas Patient Temperature 36.8 Arterial Blood pH 7.38 7.37-7.43 Arterial Blood Partial Pressure CO2 47 H 35-45 MMHG Arterial Blood Partial Pressure O2 53 L 79-93 MMHG Arterial Blood HCO3 27 23-27 MMOL/L Arterial Blood Total CO2 28.7 21.0-31.0 MMOL/L Arterial Blood Oxygen Saturation 85 L 94-100 % Arterial Blood Base Excess 2.6 H -2.5-2.5 MMOL/L Eduard Test YES-POS Blood Gas Ventilator Setting NO Blood Gas Inspired Oxygen 1L My Orders Orders - IZA FORRESTER MD Cbc With Automated Diff (01/04/22 23:40) Comprehensive Metabolic Panel (01/04/22 23:40) Hs C Reactive Protein (01/04/22 23:40) Ua Culture If Indicated (01/04/22 23:40) Ed Iv/Invasive Line Start (01/04/22 23:40) Protime With Inr (01/05/22 00:08) Partial Thromboplastin Time (01/05/22 00:08) Fibrin Degradation Products (01/05/22 00:08) Troponin I Dior (01/05/22 00:08) Chest 1 View, Ap/Pa Only (01/05/22 00:08) Ekg Tracing (01/05/22 00:08) Accucheck Stat ONCE (01/05/22 00:08) Vital Signs Stroke Patient Q15M (01/05/22 00:08) Ct Head Wo-R/O Stroke (01/05/22 00:08) O2 (01/05/22 00:08) Intake & Output 06,14,22 (01/05/22 00:08) Monitor-Rhythm Ecg Trace Only (01/05/22 00:08) Dysphagia Screening Tool (01/05/22 00:08) Post Thrombolytic Adminstratio (01/05/22 00:08) Lipid Panel (01/06/22 06:00) Ammonia (01/05/22 00:08) Influenza A And B By Pcr (01/05/22 00:46) Covid 19 Inhouse Test (01/05/22 00:46) Ct Angio Head/Neck (01/05/22 01:06) Iohexol Injection (Omnipaque 350 Mg/Ml 1 (01/05/22 02:15) Received Contrast (Hold Metformin- Contr (01/05/22 02:15) Ns (Ivpb) (Sodium Chloride 0.9% Ivpb Bag (01/05/22 02:15) Arterial Blood Gas (01/05/22 02:47) Arterial Blood Draw - Obtain (01/05/22 02:55) Ct Angio Chest W (01/05/22 03:19) Lactated Ringers (Lr 1000 Ml Iv Solution (01/05/22 03:30) Thyroid Analyzer (01/05/22 04:38) Medications Given in ED Current Medications Medications Dose Ordered Sig/Bradley Route Start Time Stop Time Status Last Admin Dose Admin Iohexol 75 ml ONCE ONCE IV 01/05/22 02:15 01/05/22 02:23 DC 01/05/22 02:28 75 ML Lactated Ringer's 1,000 ml @ 0 mls/hr Q0M ONCE IV 01/05/22 03:30 01/05/22 03:31 DC 01/05/22 03:55 999 MLS/HR Sodium Chloride 100 ml ONCE ONCE IV 01/05/22 02:15 01/05/22 02:23 DC 01/05/22 02:28 100 ML Vital Signs/I&O 01/04/22 01/05/22 23:52 01:00 Temp 36.8 Pulse 79 Resp 16 B/P (MAP) 114/66 (82) Pulse Ox 92 O2 Delivery Room Air Nasal Cannula O2 Flow Rate 2.00 Blood Pressure Mean: 82 FSBG Bedside Testing Finger Stick Blood Glucose: 115 Blood Glucose Action Taken: DR. FORRESTER NOTIFIED Progress Progress Note : Progress Note Patient's slurring of the speech and cognitive difficulties seem to be more likely an encephalopathy. However, because there was acute change this evening, stroke activation was paged. CT of the head was unremarkable. This was followed by CT angiogram. Angiogram was also unremarkable. Patient does have history of COPD. She was borderline hypoxic. Nasal cannula was applied. ABG showed a low PO2. Nasal cannula was increased from 1 L/min to 3 L/min. D-dimer was notably elevated. CT angiogram of the chest was unremarkable for pulmonary embolus. Patient received a liter of IV fluid for renal prophylaxis with this large dosing of IV contrast. Patient was ultimately admitted for supportive care with her weakness and ambulatory difficulty as well as further work-up for her dysarthria and dysphagia. Initial ECG Impression Date: Jan 05, 2022 Initial ECG Impression Time: 00:08 Initial ECG Rate: 80 Initial ECG Rhythm: Normal Sinus Initial ECG Intervals: Normal Initial ECG Impression: Normal Comment Normal sinus rhythm with no ST elevation or depression. No abnormal intervals or axis deviation. Diagnostic Imaging Diagonstic Imaging: Xray Plain Films/CT/US/NM/MRI: chest Comments Chest x-ray reviewed by me. Report not yet available. No acute abnormality appreciated. Diagonstic Imaging: CT Plain Films/CT/US/NM/MRI: head Comments CT head without contrast viewed by me. Discussed with radiologist. No acute findings. Diagonstic Imaging: CT Plain Films/CT/US/NM/MRI: other (Angio head and neck) Comments CT angiogram head and neck viewed by me and stat rad report reviewed. Discussed with the radiologist. No large vessel occlusion identified. Diagonstic Imaging: CT Plain Films/CT/US/NM/MRI: chest Comments CT angiogram chest viewed by me and stat rad report reviewed. There are some atelectasis versus infiltrate in the bases. No pulmonary emboli. There was question of bilateral pyelonephritis based on CT findings. This does not correl ate well with urinalysis. Departure Communication (Admissions) Time/Spoke to Admitting Phy: 04:52 Dr. English Impression Primary Impression: Generalized weakness Additional Impressions: Dysphagia Qualified Codes: R13.10 - Dysphagia, unspecified Dysarthria Disposition: ADMITTED INPATIENT Condition: Stable Admissions Decision to Admit Reason: Admit from ER (General) Decision to Admit/Date: Jan 05, 2022 Time/Decision to Admit Time: 04:52 Departure-Patient Inst. Referrals: FABIAN ENGLISH DO (PCP/Family) Primary Care Physician IZA FORRESTER MD Jan 05, 2022 05:08
[2022-01-05] MEDS ORDERED: ONDANSETRON 4 MG/2 ML (SDV) Z0FRAN IV PRN (05:45)
--- NOTE | 2022-01-05 06:18 | Diagnostic Imaging Report ---
INDICATION: Cough. COMPARISON: None. FINDINGS: Single view of the chest demonstrates clear lungs bilaterally. Heart is normal. There is no pneumothorax but osseous structures normal. IMPRESSION: Negative chest. Dictated by: Dictated on workstation # [id number]
--- NOTE | 2022-01-05 06:18 | Diagnostic Imaging Report ---
PROCEDURE: CT head wo r/o stroke. TECHNIQUE: Multiple contiguous axial images were obtained through the brain without the use of intravenous contrast. Auto Exposure Controls were utilized during the CT exam to meet ALARA standards for radiation dose reduction. INDICATION: Stroke COMPARISON: None FINDINGS: Ventricles are normal in size, shape, and position. There is no midline shift or mass effect. There is no hemorrhage or evidence of acute ischemia. No extra-axial fluid collection or mass is identified. There is no dense vessel sign. The bony calvarium, paranasal sinuses and mastoids are clear. IMPRESSION: Negative CT head Agree with preliminary report. Dictated by: Dictated on workstation # [id number]
[2022-01-05] MEDS: LACTATED RINGERS 1,000 ML IV SCH ×3 (06:22→18:20)
--- NOTE | 2022-01-05 06:45 | Diagnostic Imaging Report ---
PROCEDURE: CT angiography of the chest with contrast. TECHNIQUE: Multiple contiguous axial images were obtained through the chest after uneventful bolus administration of intravenous contrast. 3D reconstructed CTA MIP acquisitions were also performed. Auto Exposure Controls were utilized during the CT exam to meet ALARA standards for radiation dose reduction. INDICATION: Shortness of breath COMPARISON: 12/26/2020. FINDINGS: The heart is slightly enlarged without pericardial effusion. Pulmonary arteries and aorta are unremarkable. There is no lymphadenopathy. There is subsegmental atelectasis in both lung bases. Underlying pneumonia not excluded. There is no pneumothorax or effusion. Osseous structures are age-appropriate. There is some inflammatory change surrounding the upper pole the right kidney possibly infection. Otherwise upper abdominal solid organs are unremarkable. IMPRESSION: 1. Bibasilar atelectasis and/or infiltrate. 2. No pulmonary embolism or acute aortic pathology. 3. Questionable right-sided pyelonephritis. 4. Not mentioned above small hiatal hernia. Agree with preliminary report Dictated by: Dictated on workstation # [id number]
--- NOTE | 2022-01-05 07:04 | Diagnostic Imaging Report ---
PROCEDURE: CT angiography of the head and CT angiography of the neck with and without contrast. TECHNIQUE: Contiguous noncontrast images were obtained from the skull base through the vertex. After intravenous contrast administration, helical CT angiography of the neck was performed. Source data was reformatted into 3D MIP projections. Delayed post contrast acquisition was also obtained. Auto Exposure Controls were utilized during the CT exam to meet ALARA standards for radiation dose reduction. INDICATION: Stroke. COMPARISON: None. FINDINGS: Visualized arch anatomy is normal. The left vertebral artery is dominant. Bilateral common carotid and internal carotid artery are grossly normal. There is no plaque formation or dissection. The [place] is intact. There is no aneurysm or AVM. No large vessel occlusion is identified. Venous structures are grossly normal. There is no abnormal enhancement or mass. Soft tissues and cervical spine appear grossly unremarkable. There is some slight vascular congestion in the upper lung zones. IMPRESSION: No large vessel occlusion identified. Agree with preliminary report. Dictated by: Dictated on workstation # [id number]
--- NOTE | 2022-01-05 07:43 | History & Physical ---
REAGAN GODOY Kathie 01/05/22 0743: History of Present Illness History of Present Illness Reason for visit/HPI HPI: Ms. Batista is a 71 year old female who presented to the ED yesterday with progressive weakness and slurred speech. This morning she was alert and attempted to answer questions but her speech was slurred and incomprehensible. She would trail off mid-sentence, slur her words, or have non-meaningful speech. She was able to say "okay" and "thank you" clearly during the encounter however when questioned further about her medical history or HPI her speech was incomprehensible. She was able to follow commands. HPI per ED: This is 71-year-old woman presents to the emergency room with a couple of days of progressive weakness. Her reports she has not been able to independently take the stairs which is unusual for her. She also has developed slurring of her speech and inability to completely express thoughts verbally. Her speech often trails off at the end of statements into nonsensical words or slurred speech. She reports having a right flank pain a couple days ago that has since resolved. Although she has not been feeling well for couple of days. The speech abnormalities seem to have abruptly started between 1600 and 1700. She was unsteady ambulating and required assistance getting from the wheelchair to the bed. reports she has not been eating or drinking much over the past few days. Patient also seems to have an appropriate laughter during interview. Date of Admission Jan 05, 2022 at 04:54 Date Seen by a Provider: Jan 05, 2022 Time Seen by a Provider: 07:05 I consulted on this patient on 01/05/22 07:38 Attending Physician Fabian English DO Admitting Physician Fabian English DO Consult Allergies and Home Medications Allergies Coded Allergies: fluticasone furoate (Verified Allergy, Mild, 12/03/18) BLISTERS IN MOUTH vilanterol (Verified Allergy, Mild, 12/03/18) BLISTERS IN MOUTH Patient Home Medication List Amlodipine Besylate (Amlodipine Besylate) 5 Mg Tablet, 5 MG PO DAILY, (Reported) Entered as Reported by: NEELIMA COMER on 01/05/22 1792 Last Action: Held Aspirin (Aspirin EC) 81 Mg Tablet.dr, 81 MG PO DAILY, (Reported) Entered as Reported by: MARIBEL DILLON on 12/24/171236 Last Action: Held Budesonide/Formoterol Fumarate (Symbicort 160-4.5 Mcg Inhaler) 10.2 Gm Hfa.aer.ad, 2 PUFF INH BID, (Reported) Entered as Reported by: MARIBEL DILLON on 12/24/171236 Last Action: Held Calcium Carbonate/Vitamin D3 (Calcium 600 + Vit D 200 Tablet) 1 Each Tablet, 1 TAB PO HS, (Reported) Entered as Reported by: BETHANY RICHEY on 07/30/161549 Last Action: Held Cholecalciferol (Vitamin D3) (Vitamin D3) 125 Mcg Capsule, 125 MCG PO DAILY, (Reported) Entered as Reported by: NEELIMA COMER on 01/05/221106 Last Action: Held Fish Oil/Dha/Epa (Fish Oil 1,200 mg Fish Oil) 1 Each Capsule, 1 EACH PO DAILY, (Reported) Entered as Reported by: ROSIBEL OSORIO on 12/03/181922 Last Action: Held Latanoprost (Xalatan) 2.5 Ml Drops, 1 DROP OU HS, (Reported) Entered as Reported by: NEELIMA COMER on 01/05/221106 Last Action: Held Levocetirizine Dihydrochloride (Xyzal) 5 Mg Tablet, 5 MG PO HS, (Reported) Entered as Reported by: NEELIMA COMER on 01/05/221106 Last Action: Held Melatonin (Melatonin) 10 Mg Tablet, 10 MG PO HS, (Reported) Entered as Reported by: MARIBEL DILLON on 12/24/171236 Last Action: Held Montelukast Sodium (Montelukast Sodium) 10 Mg Tablet, 10 MG PO HS, (Reported) Entered as Reported by: MARIBEL DILLON on 12/24/171236 Last Action: Held Pravastatin Sodium (Pravastatin Sodium) 20 Mg Tablet, 20 MG PO HS, (Reported) Entered as Reported by: BETHANY RICHEY on 07/30/16 155 Last Action: Held Trazodone HCl (Trazodone HCl) 50 Mg Tablet, 50 MG PO HS PRN for SLEEP, (Reported) Entered as Reported by: NEELIMA COMER on 01/05/221106 Last Action: Held Discontinued Medications Albuterol Sulfate (Ventolin Hfa) 18 Gm Hfa.aer.ad, 2 PUFF INH Q4H PRN for SHORTNESS OF BREATH, (Reported) Discontinued Reason: No Longer Taking Entered as Reported by: MARIBEL DILLON on 12/24/17 1237 Last Action: Discontinued Amlodipine Besylate (Amlodipine Besylate) 5 Mg Tablet, 5 MG PO DAILY Discontinued Reason: Duplicate Order Prescribed by: FABIAN ENGLISH on 12/27/17 1253 Last Action: Discontinued Cholecalciferol (Vitamin D3) (Vitamin D3) 1,000 Unit Capsule, 1,000 UNIT PO TID, (Reported) Discontinued Reason: Prescription changed Entered as Reported by: ROSIBEL OSORIO on 12/03/181922 Ipratropium/Albuterol Sulfate (Iprat-Albut 0.5-3(2.5) mg/3 ml) 3 Ml Ampul.neb, 3 ML IH RTQ4HR Discontinued Reason: No Longer Taking Prescribed by: FABIAN ENGLISH on 12/27/17 1253 Last Action: Discontinued Latanoprost (Latanoprost) 2.5 Ml Drops, 1 DROP OU HS, (Reported) Discontinued Reason: Duplicate Order Entered as Reported by: MARIBEL DILLON on 12/24/17 1237 Last Action: Discontinued Levobunolol HCl (Levobunolol HCl) 5 Ml Drops, 1 DROP OU DAILY, (Reported) Discontinued Reason: No Longer Taking Entered as Reported by: BETHANY RICHEY on 07/30/16 1550 Last Action: Discontinued [Xyzal] Unknown Strength , Unknown Dose, (Reported) Discontinued Reason: Prescription changed Entered as Reported by: ROSIBEL OSORIO on 12/03/181922 Past Oksotjo-Axrjkh-Clygiq Hx Patient Social History Tobacco Use?: No Smoking Status: Never a Smoker Smokeless Tobacco Frequency: Never a User Use of E-Cig and/or Vaping Deshaun: Never a User Substance use?: No Alcohol Use?: No Pt feels they are or have been: No Immunizations Up To Date Date of Influenza Vaccine: Aug 24, 2020 Tetanus Booster (TDap): Unknown Date of Pneumonia Vaccine: Aug 23, 2017 Seasonal Allergies Seasonal Allergies: Yes Current Status Advance Directives: No Communicates: Unable To Communicate (Incomprehensible speech) Primary Language: Cypriot Preferred Spoken Language: Cypriot Is interpretation needed?: No Implanted or Applied Medical D: None Past Medical History Surgeries: Gallbladder, Hysterectomy Sleep Apnea, COPD Currently Using CPAP: Yes Gastroesophageal Reflux Fibromyalgia Blood Disorders: No Family Medical History Unable to obtain FH d/t patient status Review of Systems ROS-Unable to Obtain: Unable to obtain ROS d/t patient status Physical Exam Vital Signs Vital Signs - First Documented 01/04/22 01/05/22 23:52 01:00 Temp 36.8 Pulse 79 Resp 16 B/P (MAP) 114/66 (82) Pulse Ox 92 O2 Delivery Room Air O2 Flow Rate 2.00 Capillary Refill : Less Than 3 Seconds Height, Weight, BMI Height: 5'4.00" Weight: 160lbs. 0.0oz. 72.668182og; 25.90 BMI Method: General Appearance: No Apparent Distress, WD/WN HEENT: PERRL/EOMI; No Moist Mucous Membranes Neck: Normal Inspection, Non Tender, Supple; No Lymphadenopathy (L), No Lymphadenopathy (R) Respiratory: Chest Non Tender, Lungs Clear, Normal Breath Sounds, No Accessory Muscle Use, No Respiratory Distress Cardiovascular: Regular Rate, Rhythm, No Edema, No Murmur, Normal Peripheral Pulses Gastrointestinal: Normal Bowel Sounds, Non Tender, Soft Extremity: Normal Capillary Refill, Normal Inspection, No Pedal Edema Neurologic/Psychiatric: Alert; No Oriented x3; No Motor/Sensory Deficits, Normal Mood/Affect (Patient pleasant, smiling, and laughing), interface analyst II-XII Norm as Tested, Aphasia (Nonsense words and incomprehensible speech at times); No Facial Droop Skin: Normal Color, Warm/Dry Lymphatic: No Adenopathy (Head and neck) Assessment/Plan Assessment and Plan Assessment: Suspected pyelonephritis - CT showed inflammation in the right upper pole - Possible UTI. Leukocyte esterase on UA but no bacteria or WBC Altered mental status - Patient had onset of confusion earlier in the week - Onset of slurred speech yesterday Possible CVA - Head CT and head CTA negative for acute abnormalities Anemia - 11.2 today - Monitor Hypokalemia - 3.3 today Bibasilar atelectasis - Imaging finding - Normal breath sounds Elevated CRP Elevated AST Elevated BUN Hyperbilirubinemia Plan: IVF and ciprofloxacin for suspected pyelonephritis Potassium replacement CXR, head CT, and head CTA all negative. MRI for additional w/u of possible CVA Order ICS DVT ppx with enoxaparin Speech therapy consult for possible dysphagia D/c Saturday or Saturday? 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 SHE PRESENTED TO THE HOSPITAL AFTER SEVERAL DAYS OF SLURRED SPEECH, DIFFICULTY TO STAY ALERT, AND MINIMAL INTELLIGIBLE SPEECH. IN THE ER SHE HAD AN EXTENSIVE WORK-UP WITH NO ACUTE FINDINGS. NEGATIVE CT OF THE HEAD, NEGATIVE LABS EXCEPT SLIGHTLY ELEVATED D-DIMER, AND NEGATIVE CT OF CHEST. ON STUDENT EVALUATION PT WAS LETHARGIC AND HAD SLURRED AND ALTERED SPEECH. UPON MY EVALUATION, THE PT WAS ABLE TO APPROPRIATELY ANSWER QUESTIONS. Date of Admission 01/05/22 Date Seen by a Provider: Jan 05, 2022 Time Seen by a Provider: 08:00 Attending Physician SANDEEP BOLTON MD Admitting Physician SANDEEP BOLTON MD Allergies and Home Medications Allergies Coded Allergies: fluticasone furoate (Verified Allergy, Mild, 12/03/18) BLISTERS IN MOUTH vilanterol (Verified Allergy, Mild, 12/03/18) BLISTERS IN MOUTH Patient Home Medication List Home Medication List Reviewed: Yes Amlodipine Besylate (Amlodipine Besylate) 5 Mg Tablet, 5 MG PO DAILY, (Reported) Entered as Reported by: NEELIMA COMER on 01/05/22 1107 Last Action: Held Aspirin (Aspirin EC) 81 Mg Tablet.dr, 81 MG PO DAILY, (Reported) Entered as Reported by: MARIBEL DILLON on 12/24/17 123 Last Action: Held Budesonide/Formoterol Fumarate (Symbicort 160-4.5 Mcg Inhaler) 10.2 Gm Hfa.aer.ad, 2 PUFF INH BID, (Reported) Entered as Reported by: MARIBEL DILLON on 12/24/17 123 Last Action: Held Calcium Carbonate/Vitamin D3 (Calcium 600 + Vit D 200 Tablet) 1 Each Tablet, 1 TAB PO HS, (Reported) Entered as Reported by: BETHANY RICHEY on 07/30/16 1550 Last Action: Held Cholecalciferol (Vitamin D3) (Vitamin D3) 125 Mcg Capsule, 125 MCG PO DAILY, (Reported) Entered as Reported by: NEELIMA COMER on 01/05/221106 Last Action: Held Fish Oil/Dha/Epa (Fish Oil 1,200 mg Fish Oil) 1 Each Capsule, 1 EACH PO DAILY, (Reported) Entered as Reported by: ROSIBEL OSORIO on 12/03/181922 Last Action: Held Latanoprost (Xalatan) 2.5 Ml Drops, 1 DROP OU HS, (Reported) Entered as Reported by: NEELIMA COMER on 01/05/221106 Last Action: Held Levocetirizine Dihydrochloride (Xyzal) 5 Mg Tablet, 5 MG PO HS, (Reported) Entered as Reported by: NEELIMA COMER on 01/05/221106 Last Action: Held Melatonin (Melatonin) 10 Mg Tablet, 10 MG PO HS, (Reported) Entered as Reported by: MARIBEL DILLON on 12/24/171236 Last Action: Held Montelukast Sodium (Montelukast Sodium) 10 Mg Tablet, 10 MG PO HS, (Reported) Entered as Reported by: MARIBEL DILLON on 12/24/171236 Last Action: Held Pravastatin Sodium (Pravastatin Sodium) 20 Mg Tablet, 20 MG PO HS, (Reported) Entered as Reported by: BETHANY RICHEY on 07/30/16 1550 Last Action: Held Trazodone HCl (Trazodone HCl) 50 Mg Tablet, 50 MG PO HS PRN for SLEEP, (Reported) Entered as Reported by: NEELIMA COMER on 01/05/221106 Last Action: Held Discontinued Medications Albuterol Sulfate (Ventolin Hfa) 18 Gm Hfa.aer.ad, 2 PUFF INH Q4H PRN for SHORTNESS OF BREATH, (Reported) Discontinued Reason: No Longer Taking Entered as Reported by: MARIBEL DILLON on 12/24/171236 Last Action: Discontinued Amlodipine Besylate (Amlodipine Besylate) 5 Mg Tablet, 5 MG PO DAILY Discontinued Reason: Duplicate Order Prescribed by: FABIAN ENGLISH on 12/27/17 125 Last Action: Discontinued Cholecalciferol (Vitamin D3) (Vitamin D3) 1,000 Unit Capsule, 1,000 UNIT PO TID, (Reported) Discontinued Reason: Prescription changed Entered as Reported by: ROSIBEL OSORIO on 12/03/181922 Ipratropium/Albuterol Sulfate (Iprat-Albut 0.5-3(2.5) mg/3 ml) 3 Ml Ampul.neb, 3 ML IH RTQ4HR Discontinued Reason: No Longer Taking Prescribed by: FABIAN ENGLISH on 12/27/17 1253 Last Action: Discontinued Latanoprost (Latanoprost) 2.5 Ml Drops, 1 DROP OU HS, (Reported) Discontinued Reason: Duplicate Order Entered as Reported by: MARIBEL DILLON on 12/24/17 1237 Last Action: Discontinued Levobunolol HCl (Levobunolol HCl) 5 Ml Drops, 1 DROP OU DAILY, (Reported) Discontinued Reason: No Longer Taking Entered as Reported by: BETHANY RICHEY on 07/30/16 1550 Last Action: Discontinued [Xyzal] Unknown Strength , Unknown Dose, (Reported) Discontinued Reason: Prescription changed Entered as Reported by: ROSIBEL OSORIO on 12/03/181922 Past Afzqodm-Vxexqf-Zczswa Hx Patient Social History Marrital Status: Living Status: LIVES AT HOME with SPOUSE Employed/Student: retired Tobacco Use?: No Smoking Status: Never a Smoker (PER PATIENT REPORT) Use of E-Cig and/or Vaping dev: No Substance use?: No Alcohol Use?: No (PER PATIENT VERBAL repoRT) Seasonal Allergies Seasonal Allergies: Yes Current Status status: No status: No Advance Directives: Unable to obtain Communicates: Verbally Primary Language: Cypriot Preferred Spoken Language: Cypriot Is interpretation needed?: No Implanted or Applied Medical D: None Past Medical History COPD Currently Using CPAP: No Currently Using BIPAP: No High Cholesterol, Hypertension Sexually Transmitted Disease: No HIV/AIDS: No Arthritis Loss of Vision: Denies Sleep Difficulties, Anxiety Review of Systems Constitutional: malaise, weakness EENTM: no symptoms reported Respiratory: short of breath Cardiovascular: no symptoms reported Gastrointestinal: no symptoms reported, see HPI; No abdominal pain, No constipation, No diarrhea, No nausea, No vomiting Genitourinary: frequency Musculoskeletal: muscle weakness Skin: no symptoms reported Psychiatric/Neurological: Anxiety, Weakness, Other (INTERMITTENT CONFUSION AND DELAY OF SPEECH) Physical Exam General Appearance: No Apparent Distress, WD/WN HEENT: PERRL/EOMI, Pharynx Normal Neck: Normal Inspection, Non Tender, Supple Respiratory: Chest Non Tender, Lungs Clear, Normal Breath Sounds, No Accessory Muscle Use, No Respiratory Distress Cardiovascular: Regular Rate, Rhythm, No Edema, No Murmur, Normal Peripheral Pulses Gastrointestinal: Normal Bowel Sounds, Non Tender, Soft Rectal: Deferred Back: CVA Tenderness (R) Extremity: Normal Capillary Refill, Normal Inspection Neurologic/Psychiatric: Alert, Oriented x3, No Motor/Sensory Deficits, Normal Mood/Affect (Patient pleasant, smiling, and laughing), interface analyst II-XII Norm as Tested Skin: Normal Color, Warm/Dry Lymphatic: No Adenopathy (Head and neck) Assessment/Plan Assessment and Plan PYELONEPHRITIS CONFUSION HYPOKALEMIA ELEVATED D-DIMER HYPOTENSION CHRONIC HYPERTENSION COPD PYELONEPHRITIS - SEEN ON CT SCAN - WITH PAIN ON THE RIGHT FLANK, INITIATED IV ANTIBIOTIC - CIPROFLOXACIN, MONITOR LABS AND SYMPTOMS. CONFUSION - IMPROVED THIS MORNING, MONITOR. - POSSIBLE CVA - CHECK MRI OF BRAIN, AND WILL CONSULT SPEECH THERAPY. HYPOKALEMIA - REPLENISH WITH IV FLUIDS ELEVATED D-DIMER - CT ANGIO NEGATIVE FOR PULMONARY EMBOLUS HYPOTENSION IN THE FACE OF CHRONIC HYPERTENSION - HOME REGIMEN HELD AT THIS TIME, MONITOR PRESSURES. COPD - MONITOR SYMPTOMS, HOLD THERAPIES FOR NOW, AND WILL RESUME OTHER MEDICATIONS PENDING SYMPTOMS. DVT PROPHYLAXIS WITH LOVENOX AND SCD'S GI PROPHYLAXIS WITH PPI AND PROBIOTICS. Admission Diagnosis PYELONEPHRITIS CONFUSION HYPOKALEMIA ELEVATED D-DIMER HYPOTENSION CHRONIC HYPERTENSION COPD Admission Status: Inpatient Order (span 2 midnights) Reason for Inpatient Admission: INPT ADMISSION FOR PYELONEPHRITIS, WILL REQuire AT LEAST 2 DAYS fOR STABILIZATION AND MONIToring. Supervisory-Addendum Brief Verification & Attestation Participated in pt care: history, MDM, physical Personally performed: exam, history, MDM, supervision of care Care discussed with: Medical Student Procedures: n/a Results interpretation: Verified all documentation AGREE WITH STUDENT NOTE, SEE MY DOCUMENTATION REAGAN GODOY Jan 05, 2022 07:43 SANDEEP BOLTON MD Jan 05, 2022 21:04
[2022-01-05 08:00] VITALS: BP 132/78
[2022-01-05] MEDS ORDERED: GADOTERATE 0.5 MMOL/ML (CLARISCAN) 15 ML VIAL IV ONE (09:00)
--- NOTE | 2022-01-05 09:13 | Speech Therapy Progress Note ---
Therapy Progress Note 910: Speech language pathology received the consultation for "cognitive evaluation and dysphagia screen" on this date and completed an extensive chart review. The clinician attempted the evaluation at 910 however the patient is not present in her room (possibly out of room for additional testing). ST will reattempt the evaluation as able. Thank you! MAILE JOSEPH Jan 05, 2022 09:13
[2022-01-05 09:49] LABS: HEMATOCRIT 35 % (35-52); HEMOGLOBIN 11.7 g/dL (11.5-16.0); MEAN CORPUSCULAR HEMOGLOBIN 29 pg (25-34); MEAN CORPUSCULAR HGB CONC 33 g/dL (32-36); MEAN CORPUSCULAR VOLUME 88 fL (80-99); MEAN PLATELET VOLUME 9.8 fL (9.0-12.2); PLATELET COUNT 175 10^3/uL (130-400); WHITE BLOOD COUNT 7.3 10^3/uL (4.3-11.0)
[2022-01-05 10:02] LABS: ALBUMIN 3.7 GM/DL (3.2-4.5); POTASSIUM 3.6 MMOL/L (3.6-5.0)
[2022-01-05 10:03] LABS: CALCIUM 9.6 MG/DL (8.5-10.1)
[2022-01-05 10:04] LABS: TOTAL PROTEIN 6.8 GM/DL (6.4-8.2)
[2022-01-05 10:06] LABS: BILIRUBIN,TOTAL 1.1 MG/DL (0.1-1.0)
[2022-01-05] MEDS: ENOXAPARIN 40 MG/0.4 ML (LOVENOX) SYR SC SCH (10:07)
[2022-01-05] MEDS: PANTOPRAZOLE 40 MG (PROTONIX) TAB PO SCH (10:07)
[2022-01-05] MEDS: CIPROFLOXACIN IV 400MG/200ML 200 ML IV SCH ×2 (10:07→21:36)
[2022-01-05 10:08] LABS: CREATININE SERUM 0.84 MG/DL (0.60-1.30)
[2022-01-05] MEDS: ASPIRIN 81 MG CHEW (CHILDREN'S ASA) PO SCH (10:08)
[2022-01-05] MEDS ORDERED: TRZ50T PO (11:07)
[2022-01-05] MEDS ORDERED: LEVO5TAB28 PO (11:07)
[2022-01-05] MEDS ORDERED: LATA2.5D19 OU (11:07)
[2022-01-05] MEDS ORDERED: CHOL500050 PO (11:07)
[2022-01-05] MEDS ORDERED: AMLO-250 PO (11:07)
--- NOTE | 2022-01-05 11:08 | ST Cognitive Linguistic Eval ---
Speech Evaluation-General Medical Diagnosis Onset Date: Jan 04, 2022 Therapy Diagnosis Therapy Diagnosis: Moderate Cognitive Linguistic Impairment Precautions Precautions: Fall Precautions/Isolations: Standard Precautions Referral Referring Physician: Dr. Marcella Pelletier Reason for Referral: Evaluation/Treatment Medical History Current History The patient is a 71 year- old female with a past medical history of COPD, GERD, and fibromylagia, who presented to the ED on 01/04/22 with progressive weakness and slurred speech (with the inability to completely express her thoughts verbally). Per patient's family member, the patient would trail off mid- sentence, slur her words, or have non-meaningful speech. Head CT: 01/05/22: IMPRESSION: Negative CT head. Brain MRI: Pending. Reviewed History: Yes Speech PLF-Current Status Prior Level of Function Prior to the patient's most recent past, the patient did not display difficulty with speech, cognition, or language. Subjective The patient recently returned from her MRI and is being re-positioned in bed for comfort. The patient greeted the clinician appropriately and was agreeable to participation in the cognitive linguistic evaluation. The patient displays intermittent laughter which does not appear to correlate to the environment or current conversation. Additionally, the patient requires consistent redirection to the task, as she is easily and frequently interrupted by hallway noise, re-positioning, or entrances. Language Eval: Auditory Comprehends Simple Yes/No Ques: Functional Indent/Objects Multiple Sun: Functional Follows 1-Step Commands: Functional Follows General Conversations: Mild (With repetition and ability to gain the patient's attention.) Language Eval: Verbal Language Completes Spontaneous Greeting: Functional Produces Auto, Serial Info: Functional Imitates Simple Words/Phrases: Mild Word Finding: Moderate Requests Basic Needs: Moderate States Basic Personal Info: Functional Expresses Complex Ideas: Moderate Cognitive Patient Orientation The patient is independently oriented to self, location, month, and year. Objective Cognitive Domain Attention: Moderate Memory: Severe Problem Solving: Moderate Clock Drawing Severity Rating: Mild Objective Formal/Standardized Tests [facility] Mental Status ([facility]) Results The patient demonstrated a result of +19/30 correlating to a moderate cognitive linguistic deficit. The patient denied overt s/s of suspected aspiration with her current diet consistency and did not report difficulties or concerns regarding her swallowing function to the clinician. The patient independent sipped on thin liquid via straw throughout the evaluation. No s/s of suspected aspiration were demonstrated with thin liquids throughout the assessment. The patient's vocal quality remained clear following the swallow. Oral Motor/Speech Production The patient does not display typical dysarthria or apraxia of speech. The patient intermittently extends phonemes, however, articulation remains precise. The patient is 100% intelligible in known and unknown contexts. Impression The patient demonstrated a moderate cognitive linguistic impairment, most notably in the areas of expressive language, memory, attention, and executive functioning. The patient was able to follow simple, one-step commands, however, did require increased processing time, repetition of instructions and frequent verbal redirection to task. The patient demonstrated whole word and phoneme paraphasia throughout structured and unstructured conversation. The presence of the expressive language deficit was not consistent, demonstrating varying severe of difficulty and varying degree of presence. Speech Short Term Goals Short Term Goals Short Term Goals 1. The patient will complete memory tasks with 75% accuracy and mild clinician cueing. Speech Senior Care Goals Senior Care Goals 1. The patient will demonstrate improved cognitive linguistic skills for a safe return to the least restrictive environment. Speech-Plan Treatment Plan Speech Therapy Treatment Plan: Continue Plan of Care Treatment Duration: Jan 12, 2022 Frequency: 3 times per week Estimated Hrs Per Day: .25 hour per day Rehab Potential: Fair Pt/Family Agrees to Plan: Yes Safety Risks/Education Teaching Recipient: Patient, Family Teaching Methods: Discussion Response to Teaching: Reinforcement Needed Education Topics Provided: Plan of Care, Role of Speech Language Pathology, Goals of Treatment Time Speech Therapy Time In: 09:30 Speech Therapy Time Out: 10:00 Total Billed Time: 30 Billed Treatment Time 1, LUPE FIORE [facility] ST Jan 05, 2022 11:08
[2022-01-05 12:00] VITALS: BP 135/85
--- NOTE | 2022-01-05 12:04 | Diagnostic Imaging Report ---
CLINICAL INDICATION: Patient having weakness and confusion. EXAM: MRI of the brain performed without and with 14 cc of Clariscan IV contrast. Sequences include axial DWI, ADC map, axial gradient echo, axial FLAIR, axial T1, axial T2, axial T1 post IV contrast whole brain, coronal T1 fat-sat post IV contrast whole brain, and sagittal T1 fat-sat post IV contrast whole brain. COMPARISON: Head CT without contrast and CT angiogram of head/neck dated 01/05/2022 FINDINGS: There is no evidence of acute cerebral infarct, intracranial hemorrhage, or gross mass effect. The brain parenchymal volume appears appropriate for patient's age. There are several focal areas of high T2 signal white matter changes involving both cerebral hemispheres likely representing mild chronic small vessel ischemic disease. There is normal cox-white matter distinction. There is no significant midline shift or herniation. The [place] vascular structures show no gross abnormality as visualized. The pituitary gland, sella, and suprasellar regions are unremarkable as visualized. There is no evidence of hydrocephalus. The basal cisterns are unremarkable. The skull, extracranial soft tissue, and orbits are unremarkable. The paranasal sinuses are unremarkable. Temporal bones show no significant abnormality. IMPRESSION: Mild age-related brain parenchymal changes with no evidence of acute intracranial process. There is no acute cerebral infarct, intracranial hemorrhage or abnormal IV contrast enhancement. Dictated by: Dictated on workstation # [id number]
[2022-01-05 13:32] VITALS: BP 135/85
[2022-01-05] MEDS ORDERED: RT-ALBUTEROL SULF 2.5 MG/3 ML PRE-MIX VIAL INH PRN (13:45)
[2022-01-05] MEDS: LACTOBACILLUS ACIDOPHILUS (PROBIOTIC) CAPSULE PO SCH ×2 (14:57→18:20)
[2022-01-05] MEDS: POTASSIUM CL 10MEQ/50ML IVPB 50 ML IV SCH ×2 (14:59→18:20)
[2022-01-05 16:00] VITALS: BP 123/71
[2022-01-05 20:00] VITALS: BP 169/71
[2022-01-05] MEDS: ACETAMINOPHEN 325 MG TABLET PO PRN (22:17)
[2022-01-06] VITALS: BP 120/66
[2022-01-06 04:00] VITALS: BP 140/76
[2022-01-06] MEDS: LACTATED RINGERS 1,000 ML IV SCH ×2 (04:00→15:17)
[2022-01-06 06:20] LABS: HEMATOCRIT 31 % (35-52); HEMOGLOBIN 10.3 g/dL (11.5-16.0); MEAN CORPUSCULAR HEMOGLOBIN 29 pg (25-34); MEAN CORPUSCULAR HGB CONC 33 g/dL (32-36); MEAN CORPUSCULAR VOLUME 87 fL (80-99); MEAN PLATELET VOLUME 10.2 fL (9.0-12.2); PLATELET COUNT 171 10^3/uL (130-400); WHITE BLOOD COUNT 7.5 10^3/uL (4.3-11.0)
[2022-01-06 06:32] LABS: ALBUMIN 3.1 GM/DL (3.2-4.5); POTASSIUM 3.6 MMOL/L (3.6-5.0)
[2022-01-06 06:33] LABS: CALCIUM 9.1 MG/DL (8.5-10.1)
[2022-01-06 06:34] LABS: TOTAL PROTEIN 5.7 GM/DL (6.4-8.2)
[2022-01-06 06:36] LABS: BILIRUBIN,TOTAL 0.7 MG/DL (0.1-1.0)
[2022-01-06 06:38] LABS: CREATININE SERUM 0.77 MG/DL (0.60-1.30)
--- NOTE | 2022-01-06 08:19 | Progress Note ---
Subjective Subjective Date Seen by Provider: Jan 06, 2022 Time Seen by Provider: 07:20 Ms. Batista is being followed for generalized weakness, AMS, and suspected pyelonephritis. This morning during our encounter she was A&Ox3 and reflected upon the fact that she had been quite confused yesterday. This morning she was a ble to appropriately answer all questions, speak in clear sentences, and did not trail off in her thoughts or comments. She denies any pain at rest; her right flank is only tender to palpation. She reports that she was able to eat yesterday and she has a normal appetite. She remarked that she did not like the MRI yesterday. She asked about the etiology of her kidney infection and when she would be able to go home. Her clinical condition is markedly improved from yesterday. Review of Systems General: No Chills, No Fatigue HEENT: Head Aches; No Visual Changes Pulmonary: No Dyspnea, No Cough Cardiovascular: No: Chest Pain, Palpitations Gastrointestinal: No: Nausea, Vomiting, Abdominal Pain Musculoskeletal: back pain (Right flank tender to palpation) Neurological: No: Weakness, Confusion Objective Exam Vital Signs Vital Signs Date Time Temp Pulse Resp B/P (MAP) Pulse Ox O2 Delivery O2 Flow Rate FiO2 01/06/22 07:00 71 01/06/22 04:00 36.8 76 18 140/76 (97) 91 Room Air 01/06/22 01:00 70 01/06/22 00:00 36.9 76 17 120/66 (84) 92 Room Air 01/05/22 22:47 36.5 01/05/22 20:00 36.5 73 16 169/71 (103) 96 Room Air 01/05/22 19:12 96 Room Air 01/05/22 19:00 81 01/05/22 16:00 36.8 77 18 123/71 (88) 94 Room Air 01/05/22 13:38 Room Air 01/05/22 13:32 36.5 71 95 01/05/22 12:47 71 01/05/22 12:00 36.5 73 18 135/85 (102) 95 I & O 01/06/22 06:59 Intake Total 2770 ml Output Total 1600 ml Balance 1170 ml General Appearance: No Apparent Distress, WD/WN HEENT: PERRL/EOMI, Pharynx Normal Neck: Normal Inspection, Non Tender, Supple Respiratory: Chest Non Tender, Lungs Clear, Normal Breath Sounds, No Accessory Muscle Use, No Respiratory Distress Cardiovascular: Regular Rate, Rhythm, No Edema, No Murmur, Normal Peripheral Pulses Gastrointestinal: Normal Bowel Sounds, Non Tender, Soft Rectal: Deferred Back: CVA Tenderness (R) Extremity: Normal Capillary Refill, Normal Inspection Neurologic/Psychiatric: Alert, Oriented x3, No Motor/Sensory Deficits, Normal Mood/Affect (Patient pleasant, smiling, and laughing), soft crab shedder II-XII Norm as Tested Skin: Normal Color, Warm/Dry Lymphatic: No Adenopathy (Head and neck) Results Lab Laboratory Tests 01/05/22 09:40: White Blood Count 7.3, Red Blood Count 3.98, Hemoglobin 11.7, Hematocrit 35, Mean Corpuscular Volume 88, Mean Corpuscular Hemoglobin 29, Mean Corpuscular Hemoglobin Concent 33, Red Cell Distribution Width 13.2, Platelet Count 175, Mean Platelet Volume 9.8, Sodium Level 139, Potassium Level 3.6, Chloride Level 107, Carbon Dioxide Level 25, Anion Gap 7, Blood Urea Nitrogen 14, Creatinine 0.84, Estimat Glomerular Filtration Rate 75, BUN/Creatinine Ratio 17, Glucose Level 97, Calcium Level 9.6, Corrected Calcium 9.8, Magnesium Level 2.0, Total Bilirubin 1.1H, Aspartate Amino Transf (AST/SGOT) 35H, Alanine Aminotransferase (ALT/SGPT) 43, Alkaline Phosphatase 66, Total Protein 6.8, Albumin 3.7 01/06/22 06:06: White Blood Count 7.5, Red Blood Count 3.58L, Hemoglobin 10.3L, Hematocrit 31L, Mean Corpuscular Volume 87, Mean Corpuscular Hemoglobin 29, Mean Corpuscular Hemoglobin Concent 33, Red Cell Distribution Width 12.9, Platelet Count 171, Mean Platelet Volume 10.2, Sodium Level 139, Potassium Level 3.6, Chloride Level 107, Carbon Dioxide Level 25, Anion Gap 7, Blood Urea Nitrogen 9, Creatinine 0.77, Estimat Glomerular Filtration Rate 83, BUN/Creatinine Ratio 12, Glucose Level 100, Calcium Level 9.1, Corrected Calcium 9.8, Total Bilirubin 0.7, Aspartate Amino Transf (AST/SGOT) 23, Alanine Aminotransferase (ALT/SGPT) 30, Alkaline Phosphatase 54, Total Protein 5.7L, Albumin 3.1L, Triglycerides Level 126, Cholesterol Level 149, LDL Cholesterol Direct 87, VLDL Cholesterol 25, HDL Cholesterol 33L Assessment/Plan Assessment/Plan Assessment and Plan Assessment: Suspected pyelonephritis - CT showed inflammation in the right upper pole - Possible UTI. Leukocyte esterase on UA but no bacteria or WBC Altered mental status - Resolved Possible CVA - All imaging negative Anemia - 10.3 today - Monitor Hypokalemia - 3.6 today Bibasilar atelectasis - Imaging finding - Normal breath sounds Elevated CRP Elevated AST Elevated BUN Hyperbilirubinemia Plan: IVF and ciprofloxacin for suspected pyelonephritis Potassium replacement All head imaging negative Order ICS DVT ppx with enoxaparin Plan to d/c tomorrow Admission Dx Assessment: Suspected pyelonephritis - CT showed inflammation in the right upper pole - Possible UTI. Leukocyte esterase on UA but no bacteria or WBC Altered mental status - Patient had onset of confusion earlier in the week - Onset of slurred speech yesterday Possible CVA - Head CT and head CTA negative for acute abnormalities Anemia - 11.2 today - Monitor Hypokalemia - 3.3 today Bibasilar atelectasis - Imaging finding - Normal breath sounds Elevated CRP Elevated AST Elevated BUN Hyperbilirubinemia Plan: IVF and ciprofloxacin for suspected pyelonephritis Potassium replacement CXR, head CT, and head CTA all negative. MRI for additional w/u of possible CVA Order ICS DVT ppx with enoxaparin Speech therapy consult for possible dysphagia D/c Saturday or Saturday? Pending imaging and response to abx Clinical Quality Measures Stroke: Date of last known well: Jan 04, 2022 Time of last known well: 16:00 Supervisory-Addendum Brief Verification & Attestation Participated in pt care: history, MDM, physical Personally performed: exam, history, MDM, supervision of care Care discussed with: Medical Student Procedures: n/a Results interpretation: Verified all documentation PYELONEPHRITIS CONFUSION HYPOKALEMIA ELEVATED D-DIMER HYPOTENSION CHRONIC HYPERTENSION COPD PYELONEPHRITIS - SEEN ON CT SCAN - WITH PAIN ON THE RIGHT FLANK, INITIATED IV ANTIBIOTIC - CIPROFLOXACIN, MONITOR LABS AND SYMPTOMS. - IMPROVED - WILL SEND OUT ORAL CIPROFLOXACIN FOR TO INSURANCE SALES AGENT FOR TOMORROW. CONFUSION - RESOLVED, MRI NEGATIVE. HYPOKALEMIA - RESOLVED ELEVATED D-DIMER - CT ANGIO NEGATIVE FOR PULMONARY EMBOLUS COPD - MONITOR SYMPTOMS, HOLD THERAPIES FOR NOW, AND WILL RESUME OTHER MEDICATIONS PENDING SYMPTOMS. DVT PROPHYLAXIS WITH LOVENOX AND SCD'S GI PROPHYLAXIS WITH PPI AND PROBIOTICS. REAGAN GODOY Jan 06, 2022 08:19 SANDEEP BOLTON MD Jan 06, 2022 10:28
[2022-01-06] MEDS ORDERED: IBUPROFEN 600 MG (MOTRIN) TAB PO PRN (09:45)
[2022-01-06] MEDS ORDERED: IBUPROFEN 800 MG (MOTRIN) TAB PO ONE (09:45)
[2022-01-06] MEDS ORDERED: CIPR500T5 PO (10:31)
[2022-01-06] MEDS: LACTOBACILLUS ACIDOPHILUS (PROBIOTIC) CAPSULE PO SCH ×3 (10:37→18:12)
[2022-01-06] MEDS: PANTOPRAZOLE 40 MG (PROTONIX) TAB PO SCH (10:37)
[2022-01-06] MEDS: ASPIRIN 81 MG CHEW (CHILDREN'S ASA) PO SCH (10:37)
[2022-01-06] MEDS: CIPROFLOXACIN IV 400MG/200ML 200 ML IV SCH ×2 (10:38→20:32)
[2022-01-06] MEDS: ENOXAPARIN 40 MG/0.4 ML (LOVENOX) SYR SC SCH (10:38)
[2022-01-06 11:14] VITALS: BP 141/71
[2022-01-06 16:00] VITALS: BP 147/71
[2022-01-06 19:30] VITALS: BP 145/84
[2022-01-07] MEDS: LACTATED RINGERS 1,000 ML IV SCH ×3 (00:44→08:49)
[2022-01-07 00:58] VITALS: BP 139/71
[2022-01-07 04:00] VITALS: BP 140/69
[2022-01-07] MEDS: ACETAMINOPHEN 325 MG TABLET PO PRN (06:22)
[2022-01-07 07:32] VITALS: BP 133/74
--- NOTE | 2022-01-07 07:52 | Progress Note ---
Subjective Subjective Date Seen by Provider: Jan 07, 2022 Time Seen by Provider: 09:20 Ms. Batista is being followed for generalized weakness, AMS, and suspected pyelonephritis. This morning she was A&Ox3 again and was in a good mood. She reported a headache this morning but said she was given some tylenol to help with it. She says headaches are a regular occurrence for her. She denies and pain or concerns this morning. She says occasionally she will feel a "twinge" in her right flank. She has a normal appetite and is eating well. She endorses normal bowel and bladder habits. Her was able to pecan picker her Rx for ciprofloxacin yesterday. Review of Systems General: No Chills, No Fatigue HEENT: Head Aches; No Visual Changes Pulmonary: No Dyspnea, No Cough Cardiovascular: No: Chest Pain, Palpitations Gastrointestinal: No: Nausea, Vomiting, Abdominal Pain, Diarrhea, Constipation Genitourinary: No Dysuria, No Incontinence Musculoskeletal: back pain (Right flank tender to palpation) Neurological: No: Weakness, Confusion Objective Exam Vital Signs Vital Signs Date Time Temp Pulse Resp B/P (MAP) Pulse Ox O2 Delivery O2 Flow Rate FiO2 01/07/22 07:32 36.8 95 20 133/74 (93) 93 Room Air 01/07/22 06:49 36.5 01/07/22 04:00 36.5 79 18 140/69 (92) 96 Room Air 01/07/22 00:58 36.4 74 18 139/71 (93) 96 Room Air 01/06/22 21:00 Room Air 01/06/22 19:30 36.9 78 18 145/84 (104) 96 Room Air 01/06/22 16:00 36.6 65 18 147/71 (96) 97 Room Air 01/06/22 12:29 68 01/06/22 11:35 96 Room Air 01/06/22 11:14 36.6 75 18 141/71 (94) 96 Room Air I & O 01/07/22 07:00 Intake Total 2110 ml Balance 2110 ml General Appearance: No Apparent Distress, WD/WN HEENT: PERRL/EOMI Neck: Normal Inspection, Non Tender, Supple; No Lymphadenopathy (L), No Lymphadenopathy (R) Respiratory: Chest Non Tender, Lungs Clear, Normal Breath Sounds, No Accessory Muscle Use, No Respiratory Distress Cardiovascular: Regular Rate, Rhythm, No Edema, No Murmur, Normal Peripheral Pulses Gastrointestinal: Normal Bowel Sounds, Non Tender, Soft Back: CVA Tenderness (R) (Decreased from yesterday but still present) Extremity: Normal Capillary Refill, Normal Inspection, No Calf Tenderness, No Pedal Edema Neurologic/Psychiatric: Alert, Oriented x3, No Motor/Sensory Deficits, Normal Mood/Affect (Patient pleasant, smiling, and laughing), recording clerk II-XII Norm as Tested Skin: Normal Color, Warm/Dry Lymphatic: No Adenopathy (Head and neck) Assessment/Plan Assessment/Plan Assessment and Plan Assessment: Suspected pyelonephritis - CT showed inflammation in the right upper pole - Possible UTI. Leukocyte esterase on UA but no bacteria or WBC Altered mental status - Resolved Possible CVA - All imaging negative Anemia - 10.3 yesterday - Monitor Hypokalemia - 3.6 yesterday Bibasilar atelectasis - Imaging finding - Normal breath sounds Elevated CRP Elevated AST Elevated BUN Hyperbilirubinemia Plan: IVF and ciprofloxacin for suspected pyelonephritis Potassium replacement All head imaging negative DVT ppx with enoxaparin Plan to d/c home today Clinical Quality Measures Stroke: Date of last known well: Jan 04, 2022 Time of last known well: 16:00 Supervisory-Addendum Brief Verification & Attestation Participated in pt care: history, MDM, physical Personally performed: exam, history, MDM, supervision of care Care discussed with: Medical Student Procedures: n/a Results interpretation: Verified all documentation SEE MY DISCHARGE SUMMARY FOR FULL DETAILS REAGAN GOODY Jan 07, 2022 07:52 SANDEEP BOLTON MD Jan 07, 2022 10:17
[2022-01-07] MEDS: ENOXAPARIN 40 MG/0.4 ML (LOVENOX) SYR SC SCH (08:49)
[2022-01-07] MEDS: PANTOPRAZOLE 40 MG (PROTONIX) TAB PO SCH (08:50)
[2022-01-07] MEDS: ASPIRIN 81 MG CHEW (CHILDREN'S ASA) PO SCH (08:50)
[2022-01-07] MEDS: LACTOBACILLUS ACIDOPHILUS (PROBIOTIC) CAPSULE PO SCH (08:50)
[2022-01-07] MEDS: CIPROFLOXACIN IV 400MG/200ML 200 ML IV SCH (08:50)
--- NOTE | 2022-01-07 09:09 | Discharge Inst-Simple/Standard ---
Discharge Inst-Standard Reconcile Patient Problems Problems Reviewed?: Yes Discharge Medications New, Converted or Re-Newed RX: Transmitted to Pharmacy Patient Instructions/Follow Up Plan of Care/Instructions/FU: 1 W[facility] Activity as Tolerated: Yes Discharge Diet: Regular Diet Return to The Hospital For: RETURN TO HOSPITAL FOR ANY ACUTE WORSENING OF PAIN ON RIGHT SIDE/BACK, BLOODY URINE, ANY SIGNS OR SYMPTOMS OF LIFETHREATENING ILLNESS OR INJURY Medication List: Active Scripts Active Ciprofloxacin HCl 500 Mg Tablet 500 Mg PO BID Reported Xalatan (Latanoprost) 2.5 Ml Drops 1 Drop OU HS Amlodipine Besylate 5 Mg Tablet 5 Mg PO DAILY Trazodone HCl 50 Mg Tablet 50 Mg PO HS PRN Xyzal (Levocetirizine Dihydrochloride) 5 Mg Tablet 5 Mg PO HS Vitamin D3 (Cholecalciferol (Vitamin D3)) 125 Mcg Capsule 125 Mcg PO DAILY Fish Oil 1,200 mg Fish Oil (Fish Oil/Dha/Epa) 1 Each Capsule 1 Each PO DAILY Melatonin 10 Mg Tablet 10 Mg PO HS Aspirin EC (Aspirin) 81 Mg Tablet.dr 81 Mg PO DAILY Symbicort 160-4.5 Mcg Inhaler (Budesonide/Formoterol Fumarate) 10.2 Gm Hfa.aer.ad 2 Puff INH BID Montelukast Sodium 10 Mg Tablet 10 Mg PO HS Pravastatin Sodium 20 Mg Tablet 20 Mg PO HS Calcium 600 + Vit D 200 Tablet (Calcium Carbonate/Vitamin D3) 1 Each Tablet 1 Tab PO HS My orders: Orders - SANDEEP BOLTON MD Ibuprofen Tablet (Motrin Tablet) (01/06/22 09:45) Ibuprofen Tablet (Motrin Tablet) (01/06/22 09:45) Attending Discharge Inpt/Inobs (01/07/22 09:05) SANDEEP BOLTON MD Jan 07, 2022 09:08
--- NOTE | 2022-01-07 09:10 | Discharge Summary ---
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 SHE PRESENTED TO THE HOSPITAL AFTER SEVERAL DAYS OF SLURRED SPEECH, DIFFICULTY TO STAY ALERT, AND MINIMAL INTELLIGIBLE SPEECH. IN THE ER SHE HAD AN EXTENSIVE WORK-UP WITH NO ACUTE FINDINGS. NEGATIVE CT OF THE HEAD, NEGATIVE LABS EXCEPT SLIGHTLY ELEVATED D-DIMER, AND NEGATIVE CT OF CHEST. ON STUDENT EVALUATION PT WAS LETHARGIC AND HAD SLURRED AND ALTERED SPEECH. UPON MY EVALUATION, THE PT WAS ABLE TO APPROPRIATELY ANSWER QUESTIONS. Discharge Summary Discharge Physical Examination Allergies: Coded Allergies: fluticasone furoate (Verified Allergy, Mild, 12/03/18) BLISTERS IN MOUTH vilanterol (Verified Allergy, Mild, 12/03/18) BLISTERS IN MOUTH Vitals & I&Os Vital Signs Date Time Temp Pulse Resp B/P (MAP) Pulse Ox O2 Delivery O2 Flow Rate FiO2 01/07/22 08:23 Room Air 01/07/22 07:32 36.8 95 20 133/74 (93) 93 01/05/22 05:15 3.00 General Appearance: Alert, Oriented X3, Cooperative, No Acute Distress HEENT: Atraumatic, PERRLA, Mucous Memb Moist/[place] Respiratory: Clear to Auscultation, Normal Air Movement Cardiovascular: Regular Rate Abdominal: Normal Bowel Sounds, Soft, No Tenderness, No Hepatosplenomegaly Extremities: No Clubbing, No Cyanosis, No Edema Skin: No Rashes Neuro: Normal Speech, Cranial Nerves 3-12 NL Psych/Mental Status: Mental Status NL, Mood NL Hospital Course Was the Problem List Reviewed?: Yes PYELONEPHRITIS CONFUSION HYPOKALEMIA ELEVATED D-DIMER HYPOTENSION CHRONIC HYPERTENSION COPD PYELONEPHRITIS - SEEN ON CT SCAN - WITH PAIN ON THE RIGHT FLANK, INITIATED IV ANTIBIOTIC - CIPROFLOXACIN, MONITOR LABS AND SYMPTOMS. - IMPROVED - WILL SEND OUT ORAL CIPROFLOXACIN FOR TO LOOSE HAND PACKER FOR TOMORROW. CONFUSION - RESOLVED, MRI NEGATIVE. HYPOKALEMIA - RESOLVED ELEVATED D-DIMER - CT ANGIO NEGATIVE FOR PULMONARY EMBOLUS COPD - MONITOR SYMPTOMS, HOLD THERAPIES FOR NOW, AND WILL RESUME OTHER MEDICATIONS PENDING SYMPTOMS. DVT PROPHYLAXIS WITH LOVENOX AND SCD'S GI PROPHYLAXIS WITH PPI AND PROBIOTICS. Discharge Condition at discharge improved Instructions to patient/family Please see electronic discharge instructions given to patient. Discharge Medications Reviewed and agree with Discharge Medication list on patient's Discharge Instruction sheet Clinical Quality Measures Stroke: Date of last known well: Jan 04, 2022 Time of last known well: 16:00 SANDEEP BOLTON MD Jan 07, 2022 09:10
[2022-01-07 11:40] VITALS: BP 133/74
== END 2022-01-07 11:40 | disposition home or self-care (01) | DRG 690 ==
LOC: EDUNIT# 23:34 → ER 23:38 → 4TH 01-05 04:54 → OBSVTOIN 01-05 08:14
PROVIDERS: ADMIT Family Medicine; ATTEND Family Medicine
DX: N12 Tubulo-interstitial nephritis, not specified as acute or chronic (principal); G93.40 Encephalopathy, unspecified; J98.11 Atelectasis; R47.1 Dysarthria and anarthria; R13.10 Dysphagia, unspecified; R29.703 NIHSS score 3; J44.9 Chronic obstructive pulmonary disease, unspecified; M79.7 Fibromyalgia; Z20.822 Contact with and (suspected) exposure to COVID-19; K21.9 Gastro-esophageal reflux disease without esophagitis; G47.30 Sleep apnea, unspecified; E87.6 Hypokalemia; D64.9 Anemia, unspecified; E80.6 Other disorders of bilirubin metabolism; Z79.82 Long term (current) use of aspirin; Z88.8 Allergy status to other drugs, medicaments and biological substances
CPT/HCPCS: 36415; 36600; 70450; 70496; 70498; 70553; 71045; 71275; 80053; 80061; 81000; 82140; 82805; 82947; 83735; 84443; 84484; 85025; 85027; 85379; 85610; 85730; 86141; 87636; 93005; 93041; 94664; 94760

== ENCOUNTER → 2022-03-13 | Outpatient (CLI) | payer MEDICARE ==
[~2022-03-13] MED LIST changes: +CHOL500050 PO; +CIPR500T5 PO; +FLUC100T10 PO; -FLUC100T6 PO; +LATA2.5D19 OU; +LEVO5TAB28 PO; +RT-ALBUTEROL SULF 2.5 MG/3 ML PRE-MIX VIAL INH ONE; +TRZ50T PO
== END ==
LOC: RT 12:41
PROVIDERS: ATTEND Internal Medicine Critical Care Medicine
DX: J44.9 Chronic obstructive pulmonary disease, unspecified (principal); G47.33 Obstructive sleep apnea (adult) (pediatric)
CPT/HCPCS: 94060; 94726; 94729

== ENCOUNTER → 2022-08-22 | Outpatient (CLI) | payer MEDICARE ==
[~2022-08-22] MED LIST changes: -RT-ALBUTEROL SULF 2.5 MG/3 ML PRE-MIX VIAL INH ONE
[2022-08-22 10:08] LABS: BILIRUBIN,TOTAL 1.2 MG/DL (0.1-1.0); CALCIUM 10.2 MG/DL (8.5-10.1); CREATININE SERUM 0.84 MG/DL (0.60-1.30); POTASSIUM 3.6 MMOL/L (3.6-5.0); TOTAL PROTEIN 6.9 GM/DL (6.4-8.2)
== END ==
LOC: LAB 09:24
PROVIDERS: ATTEND Family Medicine
DX: E78.5 Hyperlipidemia, unspecified (principal)
CPT/HCPCS: 36415; 80053; 80061

== ENCOUNTER → 2022-12-19 | Outpatient (CLI) | payer MEDICARE ==
--- NOTE | 2022-12-19 14:49 | Diagnostic Imaging Report ---
Indication: Routine screening. Comparison is made with prior mammogram from 12/18/2021 and 12/15/2020. 2-D and 3-D bilateral screening mammography was performed with CAD. CAD is utilized. The current study was also evaluated with a Computer Aided Detection (CAD) system. Scattered fibroglandular densities are identified bilaterally. The parenchymal pattern is stable. No mass is identified. No malignant-appearing microcalcifications are seen. Axillae are unremarkable. IMPRESSION: BI-RADS Category 1 No mammographic features suspicious for malignancy are identified. ACR BI-RADS Category 1: Negative. Result letter will be mailed to the patient. Note: At least 10% of breast cancer is not imaged by mammography. Dictated by: Dictated on workstation # [id number]
== END ==
LOC: RAD 10:01
PROVIDERS: ATTEND Family Medicine
DX: Z12.31 Encounter for screening mammogram for malignant neoplasm of breast (principal)
CPT/HCPCS: 77063; 77067

== ENCOUNTER → 2023-02-06 | Outpatient (CLI) | payer MEDICARE ==
[2023-02-06 10:22] LABS: BASOPHILS # (AUTO) 0.1 10^3/uL (0.0-0.1); BASOPHILS % (AUTO) 1 % (0-10); EOSINOPHILS # (AUTO) 0.2 10^3/uL (0.0-0.3); EOSINOPHILS % (AUTO) 3 % (0-10); HEMATOCRIT 37 % (35-52); LYMPHOCYTES # (AUTO) 2.7 10^3/uL (1.0-4.0); LYMPHOCYTES % (AUTO) 49 % (12-44); MEAN CORPUSCULAR HEMOGLOBIN 29 pg (25-34); MEAN CORPUSCULAR HGB CONC 35 g/dL (32-36); MEAN CORPUSCULAR VOLUME 85 fL (80-99); MEAN PLATELET VOLUME 9.7 fL (9.0-12.2); MONOCYTES # (AUTO) 0.5 10^3/uL (0.0-1.0); MONOCYTES % (AUTO) 9 % (0-12); NEUTROPHILS # (AUTO) 2.1 10^3/uL (1.8-7.8); NEUTROPHILS % (AUTO) 37 % (42-75); PLATELET COUNT 200 10^3/uL (130-400); WHITE BLOOD COUNT 5.6 10^3/uL (4.3-11.0)
[2023-02-06 10:32] LABS: CALCIUM 10.1 MG/DL (8.5-10.1)
[2023-02-06 10:33] LABS: TOTAL PROTEIN 6.8 GM/DL (6.4-8.2)
[2023-02-06 10:37] LABS: CREATININE SERUM 0.82 MG/DL (0.60-1.30)
[2023-02-06 11:00] LABS: FREE T4 (FREE THYROXINE) 0.81 NG/DL (0.70-1.48)
== END ==
LOC: LAB 09:57
PROVIDERS: ATTEND Nurse Practitioner Family
DX: I10 Essential (primary) hypertension (principal); E78.2 Mixed hyperlipidemia; J44.9 Chronic obstructive pulmonary disease, unspecified
CPT/HCPCS: 36415; 80053; 80061; 84439; 84443; 85025